=== PATIENT | male | born 1960 | race Caucasian/White ===

== ENCOUNTER 2023-07-29 16:12 | Emergency (ER) | payer BC, SELFPAY ==
[2023-07-29 16:14] VITALS: BP 164/99
[2023-07-29 16:27] VITALS: BMI 33.5
[2023-07-29 16:47] VITALS: BP 143/82
[2023-07-29 17:00] VITALS: BP 118/80
[2023-07-29] MEDS: LOW STRENGTH ASPIRIN 324 MG PO (17:00)
[2023-07-29] MEDS: NITROSTAT (SUBLINGUAL) 0.400000000000000022 MG SL (17:01)
--- NOTE | 2023-07-29 17:04 | ED.GENMED ---
History of Present Illness
General
Chief Complaint: Chest Pain
Source: patient
Exam Limitations: none
Time Seen by Provider: 07/29/23 16:33
Nursing documentation reviewed up to this point in time: agreed with
Travel History
Have you had any contact with someone who has COVID-19?: No
Do you have any symptoms of coronavirus? Fever > 100 degrees, chills, cough, shortness of breath, sore throat, loss of taste or smell, muscle aches, or headache?: No
History of Present Illness
History of Present Illness:
Patient with history of CLL, currently under treatment at [facility], presents to ED secondary to exertional chest over the past 2 weeks. Chest pain described as pressure, with radiation to his left shoulder, brought on
with minimal exertion, relieved at rest. Denies shortness of breath. Denies diaphoresis. Denies nausea or vomiting. Denies trauma. Denies back pain. Denies leg pain or swelling. Denies recent travel or surgery. Denies recent injury. Denies
recent change in level activities. Of note, patient states that he has had similar chest pain in the past, but has never been this severe or with minimal exertion. Patient currently does not see party plan sales consultant.
Past History
Past History
ED Past Medical History: Cancer (Chronic myelogenous leukemia, status post bone marrow transplant 1995 ), GERD, HTN, Hypercholesterolemia, NIDDM and Other (Chronic chest wall pain )
ED Past Surgical History: Cardiac (Cardiac catheterization November 2012, normal coronary arteries) and Other (Bone marrow transplant 1995 )
Social History
Tobacco: Non-smoker
Alcohol: Occasional
Drug: None
Personal:
Living: with family
Employment: Employed
Family History
Family History: Negative Early CAD, CAD or Sudden
Review of Systems
Review of Systems
Allergies reviewed?: Yes
All Other Systems: ROS reviewed and negative except as documented in HPI and ROS
Constitutional: Reports no symptoms
EENT: Reports no symptoms
Respiratory: Reports no symptoms
Cardiac: Reports chest pain
ABD/GI: Reports no symptoms
: Reports no symptoms
Musculoskeletal: Reports no symptoms
Skin: Reports no symptoms
Neurological: Reports no symptoms
Phy Exam
Physical Exam
Physical Exam:
Physical Exam
General: mild distress, not acutely ill. afebrile
Head: nc/at. eomi
Neck: supple. no meningeal signs.
Heart: s1/s2 regular rate and rhythm, systolic ejection murmur. equal radial pulses.
Lungs: no acute respiratory distress. clear bilaterally. mild left anterior chest wall tenderness to palpation.
Abdomen: normal bowel sounds. not tender.
Neuro: alert and oriented. no focal neurological deficits
Skin: no rash
Psychiatric: well kept. interactive and cooperative
Extremities: no edema. no calf tenderness.
Scores
Heart Score for Chest Pain Patients
STEMI patient?: No
History: Slightly or Non-Suspicious
ECG: Normal
Age: >45 - <65 years
Risk Factors: 1 or 2 Risk Factors
Troponin: </= Normal Limit
Heart Score for Chest Pain Patients: 2
Heart Score Risk: 2.5% MACE over next 6 weeks
Course
Orders/Labs/Results
Orders:
Orders
07/29/23 16:17
Electrocardiogram (*1) Urgent
Reason for Study: Chest Pain
EKG- Treatment ONCE
07/29/23 16:46
Aspirin Chewable [Low Strength Aspirin] 324 mg PO NOW STA
Nitroglycerin Sublingual [Nitrostat (Sublingual)] 0.4 mg SL NOW STA
CR Chest Portable - 1 View Urgent
Comment:
Reason For Exam: chest pain
Reason Study Needs to be Portable: Patient Unstable
07/29/23 16:56
Complete Blood Count/No Diff Urgent
Comprehensive Metabolic Panel Urgent
Magnesium Urgent
Troponin I Urgent
07/29/23 19:07
EKG- Treatment ONCE
07/29/23 19:59
Troponin I Urgent
07/29/23 20:00
Electrocardiogram (*1) Urgent
Reason for Study: Chest Pain
07/29/23 21:20
Dexamethasone Pf [Decadron] 10 mg PO NOW STA
Abnormal Lab Results
07/29/23
16:56
WBC 12.0 H 10^3/uL
(4.8-10.8)
RBC 4.18 L 10^6/uL
(4.70-6.10)
MCV 95.0 H fL
(80.0-94.0)
MCH 32.5 H pg
(27.0-31.0)
Plt Count 404 H 10^3/uL
(130-400)
Chloride 110 H mmol/L
(98-107)
Glucose 123 H mg/dl
(70-99)
07/29/23 16:56
07/29/23 16:56
Vital Signs
Initial and Last Documented VS:
Initial Vital Signs
Temp Pulse Resp BP Pulse Ox
98 F 106 18 164/99 98
07/29/23 16:14 07/29/23 16:14 07/29/23 16:14 07/29/23 16:14 07/29/23 16:14
Last Documented Vital Signs
Temp Pulse Resp BP Pulse Ox
98 F 78 15 138/86 96
07/29/23 16:14 07/29/23 21:15 07/29/23 21:15 07/29/23 21:00 07/29/23 17:52
MDM/Problems Addressed
MDM/Problems Addressed:
Pt remains comfortable during observation.
Repeat EKG: NSR @ 72 BPM, without any acute changes.
Repeat troponin normal. History and exam inconsistent with acute coronary syndrome, but likely secondary to intermittent, chronic inflammatory response, i.e. costochondritis. As such, patient will be discharged home in stable condition, to the
care of his spouse. However, in light of patient's change in frequency and intensity of pain, will advise cardiology outpatient consultation. Advised return to ED with recurrent or worsening symptoms. Patient expresses understanding at time of
discharge.
*EKG
Interpreted by ED Provider?: Yes
Heart Rate: 99
Rate: normal
Rhythm: sinus
Climax: normal axis
Interval: normal interval
QRS Pattern: right bundle branch block
*Critical Care Note
Total Time (30-74mins, 75-104mins- exclusive of procedures): Not Applicable
ED Attending Note
-
Portions of this chart may have been created with voice recognition software.� Occasional wrong word or��sound alike� substitutions may have occurred due to the inherent limitations of voice recognition software.
Discharge Plan
Departure
Patient Disposition: Home (Routine Discharge)
Date of Disposition: 07/29/23
Time of Disposition: 21:21
Patient with high blood pressure during this ER visit?: Yes
Condition: Fair
Discharge Problem:
Chest pain
Instructions: Chest Pain DCA Follow Up
Prescriptions:
No Action
esomeprazole magnesium [Nexium] 40 MG capsule,delayed release(DR/EC)
40 mg PO DAILY
atorvastatin 10 MG tablet
10 mg PO DAILY
metformin 500 MG tablet
500 mg PO DAILY
Tasigna 200 MG capsule
150 mg PO DAILY
prednisone 20 mg tablet
20 mg PO DAILY 6 Days Qty: 6 0RF
doxycycline hyclate 100 mg tablet
100 mg PO BID 5 Days Qty: 10 0RF
diclofenac sodium 75 mg tablet,delayed release (DR/EC)
75 mg PO BID Qty: 30 0RF
oxycodone 5 mg tablet
5 mg PO TID PRN (Reason: pain) Qty: 8 0RF
prednisone 20 mg tablet
20 mg PO BID Qty: 10 0RF
gabapentin 300 mg capsule
300 mg PO BID Qty: 20 0RF
Referrals:
Rico Lopez MD [Family Provider] -
Andrew Hoover MD [Active] -
Activity Restrictions/Additional Instructions:
As discussed, please follow-up with your primary care physician and/or referred party plan sales consultant for further evaluation and treatment. Please return to ED immediately with worsening symptoms.
Interventions
Interventions:
*Risk Screen - Suicide Last Done: 07/29/23 16:14
*General Assessment Last Done: 07/29/23 16:14
*Neglect/Abuse Screening Last Done: 07/29/23 16:14
ED- Fall Risk Assessment Last Done: 07/29/23 17:52
*ED COVID-19 Vaccine History Last Done: 07/29/23 17:30
*Nursing Disposition Last Done: 07/29/23 21:31
ED- Cardiac Assessment Last Done: 07/29/23 17:31
Discharge Date and Time
Discharge Date/Time: 07/29/23 21:33
Print Language: BANGLADESHI
[2023-07-29 17:07] LABS: Hematocrit 39.7 % (39.0-52.0); Hemoglobin 13.6 g/dL (13.0-18.0); Mean Corp Hgb Conc. 34.3 g/dL (33.0-37.0); Mean Corpuscular Hgb 32.5 pg (27.0-31.0); Mean Platelet Volume 9.3 fL (7.4-10.4); Platelet Count 404 10^3/uL (130-400); Red Blood Cell Count 4.18 10^6/uL (4.70-6.10); Red Cell Dist. Width 13.9 % (11.5-14.5)
[2023-07-29 17:21] LABS: ALT (SGPT) 30 U/L (0-50); AST (SGOT) 34 U/L (17-59); Albumin 4.1 g/dl (3.5-5.0); Alkaline Phosphatase 97 U/L (38-126); Blood Urea Nitrogen 19 mg/dl (9-20); Calcium 9.7 mg/dl (8.4-10.2); Carbon Dioxide 23 mmol/L (22-30); Chloride 110 mmol/L (98-107); Estimated Creatinine Clearance 80 ml/min; Glucose 123 mg/dl (70-99); Magnesium 1.8 mg/dl (1.6-2.3); Potassium 4.2 mmol/L (3.5-5.1); Sodium 141 mmol/L (135-145); Total Bilirubin 0.5 mg/dl (0.2-1.3); Total Protein 6.8 g/dl (6.3-8.2); eGFR > 60.00
[2023-07-29 17:28] LABS: Troponin I < 0.012 ng/ml
[2023-07-29 19:00] VITALS: BP 137/87
[2023-07-29 20:00] VITALS: BP 135/84
[2023-07-29 20:29] LABS: Troponin I < 0.012 ng/ml
[2023-07-29 21:00] VITALS: BP 138/86
[2023-07-29] MEDS: DECADRON 10 MG PO (21:23)
== END 2023-07-29 21:33 | disposition home or self-care (01) ==
LOC: EMR 16:12
PROVIDERS: EMERGENCY PHYSICIAN Emergency Medicine; FAMILY PHYSICIAN Family Medicine
DX: R07.89 Other chest pain (principal); C91.10 Chronic lymphocytic leukemia of B-cell type not having achieved remission; K21.9 Gastro-esophageal reflux disease without esophagitis; I10 Essential (primary) hypertension; E78.00 Pure hypercholesterolemia, unspecified; E11.9 Type 2 diabetes mellitus without complications; Z94.81 Bone marrow transplant status
CPT/HCPCS: 99283; 71045; 80053; 83735; 84484; 85027; 93005

== ENCOUNTER → 2023-08-12 08:04 | Outpatient (REF) | payer BC, SELFPAY | LOC: MRI 08:04 | PROVIDERS: ATTENDING PHYSICIAN Nurse Practitioner Primary Care; FAMILY PHYSICIAN Family Medicine | DX: R29.818 Other symptoms and signs involving the nervous system (principal) | CPT/HCPCS: 70553; A9575 ==

== ENCOUNTER 2023-08-14 07:09 | Day surgery (SDC) | payer BC, SELFPAY ==
[2023-08-14] VITALS (9 sets, daily range): BP systolic 119–148; BP diastolic 79–104; BMI 32.2
[2023-08-14] MEDS: NSS 1000 IV ×2 (08:06→10:00)
[2023-08-14] MEDS: LOW STRENGTH ASPIRIN 81 MG PO (08:07)
[2023-08-14 08:10] LABS: Glucose - Point of Care 95 mg/dl (70-99)
[2023-08-14 08:58] LABS: Hematocrit 43.2 % (39.0-52.0); Hemoglobin 14.7 g/dL (13.0-18.0)
[2023-08-14 09:18] LABS: Blood Urea Nitrogen 15 mg/dl (9-20); Calcium 9.5 mg/dl (8.4-10.2); Carbon Dioxide 24 mmol/L (22-30); Chloride 107 mmol/L (98-107); Estimated Creatinine Clearance 88 ml/min; Glucose 97 mg/dl (70-99); Potassium 4.4 mmol/L (3.5-5.1); Sodium 141 mmol/L (135-145); eGFR > 60.00
[2023-08-14] MEDS: NORVASC 5 MG PO (12:34)
[2023-08-14] MEDS: TYLENOL 650 MG PO (12:34)
--- NOTE | 2023-08-14 13:06 | ITS.CL.CATH ---
Senior Power Scheduler - Catheterization
Cardiac Catheterization
Procedure Report:
LEFT HEART CATHETERIZATION
Date of Procedure: August 14, 2023
Referring: Luisito Lowery DO
PROCEDURES:
1. Left heart catheterization, coronary angiogram.
2. Ultrasound-guided access
INDICATION: Mr. Izaguirre is a 62-year-old gentleman with past medical history of hypertension, hyperlipidemia, type 2 diabetes mellitus, CML with ongoing chemotherapy, morbid obesity on Mounjaro, GERD who reports 1 to 2-month history of progressive
exertional angina with substernal chest pressure radiating to his right shoulder associated with shortness of breath who is now referred for a left heart catheterization to rule out obstructive CAD. No discomfort at rest. He was recently started
on daily baby aspirin and Toprol-XL 25 mg daily
ACCESS: Right radial artery, 6 Yoruba sheath, under ultrasound guidance
HEMODYNAMICS : (mmHg)
AO (s/d) : 107/68
LV (s/d) : 116/2
LVEDP : 12
CORONARY FINDINGS
DOMINANCE: Right
LEFT MAIN: The left main artery is a large-caliber vessel which gives rise to the left anterior descending artery and the left circumflex artery. There is minimal luminal irregularities
LEFT ANTERIOR DESCENDING: The left anterior descending artery is a large-caliber vessel which gives rise to 1 medium to large caliber branching diagonal branch as it courses through the anterior interventricular groove and wraps around the apex.
There is a tubular ostial to proximal 80 to 85% LAD stenosis. Mid LAD has 2 serial eccentric 60-70% stenosis. D1 has an ostial eccentric 70 to 80% stenosis.
CIRCUMFLEX: The left circumflex artery is a medium to large caliber vessel which gives rise to 1 small caliber high rising OM 1 and a second large caliber obtuse marginal branch. In the mid left circumflex going into the proximal OM 1 there is a
smooth 50 to 60% tubular stenosis.
RIGHT CORONARY ARTERY: The right coronary artery is a large-caliber, dominant vessel which is rise to the right posterior descending artery and the right posterolateral system. There is a smooth tubular 30 to 40% stenosis in the mid portion
SEDATION: 34 minutes of procedural sedation was utilized. An independent medical assistant dermatology was present to assist with and help manage the patient's level of consciousness and physiologic status.
RADIATION SUMMARY: Fluoro Time (min): 3.9, Dose (mGy): 371.6, DAP (Gy.cm2) : 25.4
Closure Device: Vascular band over right radial artery, 11 cc of air
CONCLUSIONS
1. Significant obstructive coronary artery disease involving the ostial to proximal LAD, ostial D1 and mid LAD.
2. Moderate CAD in the left circumflex artery and the right coronary artery.
3. Normal LVEDP
RECOMMENDATIONS
1. Refer to CT surgery for consideration for coronary bypass grafting in setting of ostial to proximal LAD stenosis with known history of type 2 diabetes to LAD, D1, OM, +/- distal RCA/RPDA
2. Full echocardiogram to assess biventricular function and rule out any significant valvular abnormalities.
3. Aggressive management of cardiovascular risk factors.
4. Optimization of goal-directed medical therapy for stable angina.
5. Wean radial band per protocol.
Copy to: Luisito Lowery DO
Libra Cespedes MD, FACC, [facility]
== END 2023-08-14 13:20 | disposition home or self-care (01) ==
LOC: CATH 07:09
PROVIDERS: ATTENDING PHYSICIAN Internal Medicine Interventional Cardiology; FAMILY PHYSICIAN Family Medicine
DX: I25.110 Atherosclerotic heart disease of native coronary artery with unstable angina pectoris (principal); E66.01 Morbid (severe) obesity due to excess calories; K21.9 Gastro-esophageal reflux disease without esophagitis; E11.9 Type 2 diabetes mellitus without complications; E78.5 Hyperlipidemia, unspecified; I10 Essential (primary) hypertension; Z79.82 Long term (current) use of aspirin; I45.10 Unspecified right bundle-branch block; C92.10 Chronic myeloid leukemia, BCR/ABL-positive, not having achieved remission
CPT/HCPCS: 80048; 82962; 85014; 85018; 93458; 99152; 99153; C1894; Q9967

== ENCOUNTER → 2023-08-19 13:34 | Outpatient (REF) | payer BC, SELFPAY | LOC: HWRCS 13:34 | PROVIDERS: ATTENDING PHYSICIAN Nuclear Medicine Nuclear Cardiology; FAMILY PHYSICIAN Family Medicine | DX: R07.89 Other chest pain (principal) | CPT/HCPCS: 93306 ==

== ENCOUNTER 2023-08-29 05:12 | Inpatient (IN) | payer BC, SELFPAY ==
[2023-08-21 08:37] VITALS: BMI 33.5
[2023-08-21 09:39] LABS: % Basophils 0.6 % (0-2); % Eosinophils 2.9 % (0-6); % Immature Granulocytes 0.3 % (0-0.5); % Lymphocytes 31.4 % (20.5-51.1); % Monocytes 15.7 % (1.7-9.3); % Neutrophils 49.1 % (42.2-75.2); Absolute Basophils 0.1 10^3/uL (0-0.2); Absolute Eosinophils 0.3 10^3/uL (0-0.7); Absolute Lymphocytes 2.9 10^3/uL (1.2-3.4); Absolute Monocytes 1.4 10^3/uL (0.1-0.6); Absolute Neutrophils 4.5 10^3/uL (1.4-6.5); Hemoglobin 14.4 g/dL (13.0-18.0); Mean Corp Hgb Conc. 33.5 g/dL (33.0-37.0); Mean Corpuscular Hgb 32.7 pg (27.0-31.0); Mean Corpuscular Volume 97.5 fL (80.0-94.0); Mean Platelet Volume 9.5 fL (7.4-10.4); Nucleated Red Blood Cells % 0 % (-); Platelet Count 468 10^3/uL (130-400); Red Blood Cell Count 4.41 10^6/uL (4.70-6.10); Red Cell Dist. Width 13.7 % (11.5-14.5); White Blood Cell Count 9.1 10^3/uL (4.8-10.8)
[2023-08-21 09:40] LABS: INR 1.08
[2023-08-21 09:41] LABS: APTT 30.7 Sec (23.4-35.0)
[2023-08-21 09:47] LABS: Urine Albumin Negative (Neg - Trace); Urine Bilirubin Negative (Negative); Urine Character Clear (Clear); Urine Color Straw; Urine Glucose Negative (Negative); Urine Ketone Negative (Negative); Urine Leukocyte Negative (Negative); Urine Nitrite Negative (Negative); Urine Occult Blood Negative (Negative); Urine Urobilinogen Negative (Neg - 1+); Urine pH 6.5 (5.0-9.0)
[2023-08-21 09:48] LABS: ALT (SGPT) 29 U/L (0-50); AST (SGOT) 26 U/L (17-59); Albumin 4.4 g/dl (3.5-5.0); Alkaline Phosphatase 136 U/L (38-126); Blood Urea Nitrogen 15 mg/dl (9-20); Calcium 9.6 mg/dl (8.4-10.2); Carbon Dioxide 27 mmol/L (22-30); Chloride 106 mmol/L (98-107); Direct Bilirubin 0.2 mg/dl (0.0-0.4); Estimated Creatinine Clearance 88 ml/min; Glucose 103 mg/dl (70-99); Potassium 4.4 mmol/L (3.5-5.1); Sodium 141 mmol/L (135-145); Total Bilirubin 0.5 mg/dl (0.2-1.3); Total Protein 7.1 g/dl (6.3-8.2); eGFR > 60.00
--- NOTE | 2023-08-21 10:13 | CM ---
Chart reviewed. 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
Reviewed preoperative and postoperative instructions and restrictions. Gave patient 2 soaps along with showering instructions. Patient is agreeable to a home visit by CT Transitional RN. CM to follow
[2023-08-21 11:53] LABS: Glycohemoglobin (HgbA1c) 5.8 % (4.0-5.6)
[2023-08-29 05:01] VITALS: BP 139/87
[2023-08-29 05:03] VITALS: BP 127/84
[2023-08-29] MEDS: BACTROBAN 2% OINTMENT 1 APPLIC NASAL ×2 (05:37→19:48)
[2023-08-29] MEDS: MAGNESIUM OXIDE 500 MG PO (05:38)
[2023-08-29] MEDS: LOPRESSOR 25 MG PO (05:38)
[2023-08-29] MEDS: PROTONIX 40 MG PO (05:38)
[2023-08-29 05:49] VITALS: BMI 33.6
--- NOTE | 2023-08-29 05:56 | PTCARENOTE ---
pt admitted into CVICU 2260. pt confirmed 2 showers at home. pt clipped and prepped for CVOR. pre-op education provided. pre-op meds given. all questions answered.
[2023-08-29 08:08] LABS: ACT+ - POC 129 Seconds (82-134)
[2023-08-29 08:10] LABS: B.E. - POC -1.2 mmol/L; Glucose - POC 110 mg/dl (65-99); HCO3 - POC 24 mmol/L (21-29); Hematocrit - POC 40 % PCV (42-52); Hemodilution- POC No; Hemoglobin Calculated - POC 13.6; Ionized Calcium - POC 1.22 mmol/L (1.12-1.27); O2 Saturation %Calculated-POC 99.9 5 (92-96); PCO2 - POC 42 mmHg (35-45); PO2 - POC 325 mmHg (80-100); Sodium - POC 144 mmol/L (135-145); pH - POC 7.37 (7.35-7.45)
[2023-08-29 08:11] LABS: Urine Albumin Negative (Neg - Trace); Urine Bilirubin Negative (Negative); Urine Character Clear (Clear); Urine Color Straw; Urine Glucose Negative (Negative); Urine Ketone Negative (Negative); Urine Leukocyte Negative (Negative); Urine Nitrite Negative (Negative); Urine Occult Blood Negative (Negative); Urine Urobilinogen Negative (Neg - 1+); Urine pH 6.5 (5.0-9.0)
--- NOTE | 2023-08-29 08:53 | CM ---
Patient in OR today for planned CABG.
Reviewed initial assessment. Pt. resides w/ spouse in a private, 2 story home. Functionally, patient is indep. at baseline w/ ADLs, mobility without the use of any assisted device.
Goal for home w/ CT Transitional Care RN.
CM to follow.
[2023-08-29 10:18] LABS: ACT+ - POC 868 Seconds (82-134)
[2023-08-29 10:40] LABS: Glucose - POC 199 mg/dl (65-99); HCO3 - POC 26 mmol/L (21-29); Hematocrit - POC 28 % PCV (42-52); Hemodilution- POC Yes; Hemoglobin Calculated - POC 9.6; Ionized Calcium - POC 1.04 mmol/L (1.12-1.27); O2 Saturation %Calculated-POC 99.9 5 (92-96); PCO2 - POC 44 mmHg (35-45); PO2 - POC 295 mmHg (80-100); Potassium - POC 5.2 mmol/L (3.6-5.0); Sodium - POC 141 mmol/L (135-145); pH - POC 7.39 (7.35-7.45)
[2023-08-29 10:46] LABS: ACT+ - POC 699 Seconds (82-134)
[2023-08-29 11:00] LABS: Glucose - POC 210 mg/dl (65-99); HCO3 - POC 25 mmol/L (21-29); Hematocrit - POC 31 % PCV (42-52); Hemodilution- POC Yes; Hemoglobin Calculated - POC 10.4; O2 Saturation %Calculated-POC 99.8 5 (92-96); PCO2 - POC 41 mmHg (35-45); PO2 - POC 244 mmHg (80-100); Potassium - POC 4.6 mmol/L (3.6-5.0); Sodium - POC 143 mmol/L (135-145); pH - POC 7.39 (7.35-7.45)
[2023-08-29 11:04] LABS: ACT+ - POC 612 Seconds (82-134)
[2023-08-29 11:27] LABS: B.E. - POC -1.9 mmol/L; Glucose - POC 184 mg/dl (65-99); HCO3 - POC 23 mmol/L (21-29); Hematocrit - POC 31 % PCV (42-52); Hemodilution- POC Yes; Hemoglobin Calculated - POC 10.6; Ionized Calcium - POC 1.12 mmol/L (1.12-1.27); O2 Saturation %Calculated-POC 99.9 5 (92-96); PCO2 - POC 39 mmHg (35-45); PO2 - POC 309 mmHg (80-100); Potassium - POC 4.5 mmol/L (3.6-5.0); Sodium - POC 145 mmol/L (135-145); pH - POC 7.38 (7.35-7.45)
[2023-08-29 11:30] LABS: ACT+ - POC 552 Seconds (82-134)
[2023-08-29 11:48] LABS: ACT+ - POC 564 Seconds (82-134)
[2023-08-29 11:53] LABS: B.E. - POC -0.9 mmol/L; Glucose - POC 174 mg/dl (65-99); HCO3 - POC 25 mmol/L (21-29); Hematocrit - POC 33 % PCV (42-52); Hemodilution- POC Yes; Hemoglobin Calculated - POC 11.1; Ionized Calcium - POC 1.13 mmol/L (1.12-1.27); O2 Saturation %Calculated-POC 99.9 5 (92-96); PCO2 - POC 48 mmHg (35-45); PO2 - POC 381 mmHg (80-100); Sodium - POC 145 mmol/L (135-145); pH - POC 7.33 (7.35-7.45)
[2023-08-29 12:18] LABS: ACT+ - POC 112 Seconds (82-134)
[2023-08-29 12:28] LABS: B.E. - POC -6.3 mmol/L; Glucose - POC 137 mg/dl (65-99); HCO3 - POC 19 mmol/L (21-29); Hematocrit - POC 29 % PCV (42-52); Hemodilution- POC Yes; Ionized Calcium - POC 1.29 mmol/L (1.12-1.27); O2 Saturation %Calculated-POC 95.4 5 (92-96); PCO2 - POC 38 mmHg (35-45); PO2 - POC 84 mmHg (80-100); Potassium - POC 3.1 mmol/L (3.6-5.0); Sodium - POC 145 mmol/L (135-145); pH - POC 7.32 (7.35-7.45)
[2023-08-29 12:38] LABS: Glucose - POC 131 mg/dl (65-99); HCO3 - POC 20 mmol/L (21-29); Hematocrit - POC 30 % PCV (42-52); Hemodilution- POC Yes; Hemoglobin Calculated - POC 10.1; Ionized Calcium - POC 1.27 mmol/L (1.12-1.27); O2 Saturation %Calculated-POC 97.9 5 (92-96); PCO2 - POC 38 mmHg (35-45); PO2 - POC 108 mmHg (80-100); Potassium - POC 3.2 mmol/L (3.6-5.0); Sodium - POC 146 mmol/L (135-145); pH - POC 7.34 (7.35-7.45)
--- NOTE | 2023-08-29 12:49 | W.CVOR.SURPR ---
CVOR Surgeon Immed Pre Op
-
I have examined this patient prior to performance of the scheduled procedure.
The patient's condition is unchanged from the time of the dictated/written History and
Physical and the patient is able to undergo the scheduled procedure.
--- NOTE | 2023-08-29 12:49 | W.IMMPOSTOP ---
Addendum entered and electronically signed by Gerardo Oliver MD 08/29/23 13:08:
[id number]
Original Note:
Surgical Immed Post Op Note
-
CARDIAC SURGERY OPERATIVE NOTE:
Preoperative Dx:
MVCAD
Postoperative Dx:
Same
Procedures:
1) Median sternotomy
2) Takedown of GRACY (narrow pedicle)
3) Endoscopic harvest/prep of LLE GSV
4) CABG x 3 (GRACY to LAD, GSV to D1, GSV to OM)
Surgeon:
Gerardo Oliver M.D.
Licensed Clinician:
May Munguia-CRoxane; endoscopic harvest/prep of LLE GSV, first cook throughout, closure
Halley ConteA.-CRoxane; closure of LLE incisions, chest closure [id number]
Anesthesia:
Scotty Qureshi M.D. and Marlen Sutherland, Raymond.R.N.A.
Perfusion:
Vance HenryPRoxane; XC: 66min, CPB: 98min
Findings:
GRACY was healthy appearing vessel w/ ELD 1.65mm, very brisk blood flow
GSV was healthy appearing conduit w/ ELD 3.5-4.0mm, normal villalpando
LAD visible on epicardial surface, scattered calcifications throughout. Anastomosis at junction between mid/distal vessel. ELD 1.65mm. Brisk blood flow across anastomosis
D1 visible on epicardial surface, scant calcifications. ELD 2.5mm. Normal villalpando. Brisk blood flow across anastomosis
OM visible on epicardial surface, scant calcifications. ELD 3.5-4.0mm. Normal villalpando. Brisk blood flow across anastomosis
Post-GABI: Hyperdynamic cardiac function w/ LVEF 65-70%, no RWMA, no valvular heart disease
Implants:
CT x 4 (B/L pleural, inferior mediastinal, superior mediastinal)
Sternal wires x 7
Sternal 'X' plate x 1 w/ 4 - 16mm and 4 - 14mm screws
Sternal 'Square' place w/ 4 - 12mm screws
Complications:
None
Transfusions:
None
Condition:
82 sinus w/ isoelectric STs. 103/65. CVP 17. 99%
GTTS: levophed 10, precedex 0.5, insulin 0.5
Stable/guarded to CVICU
[2023-08-29 13:03] LABS: B.E. - POC -0.7 mmol/L; Glucose - POC 123 mg/dl (65-99); HCO3 - POC 25 mmol/L (21-29); Hematocrit - POC 30 % PCV (42-52); Hemodilution- POC Yes; Hemoglobin Calculated - POC 10.3; Ionized Calcium - POC 1.21 mmol/L (1.12-1.27); O2 Saturation %Calculated-POC 99.3 5 (92-96); PCO2 - POC 42 mmHg (35-45); PO2 - POC 152 mmHg (80-100); Potassium - POC 3.8 mmol/L (3.6-5.0); Sodium - POC 144 mmol/L (135-145); pH - POC 7.37 (7.35-7.45)
[2023-08-29 13:29] LABS: Glucose - Point of Care 135 mg/dl (70-99)
[2023-08-29] MEDS: DILAUDID 0.5 MG IV ×2 (13:35→17:08)
[2023-08-29 13:37] LABS: B.E. -1.2 mmol/L; HCO3 24.3 mmol/L (21-28); Ionized Calcium 1.25 mMOL/L (1.15-1.33); O2 Saturation % 99.4 % (94-98); PCO2 43 mmHg (35-48); PO2 176 mmHg (83-108); Potassium 4.3 mMOL/L (3.5-5.1); Sodium 141 mMOL/L (136-145); pH 7.36 (7.35-7.45)
[2023-08-29 13:38] LABS: Hematocrit 30.4 % (39.0-52.0); Hemoglobin 10.5 g/dL (13.0-18.0); Platelet Count 281 10^3/uL (130-400)
[2023-08-29 13:48] LABS: INR 1.57; PT 18.6 Sec (11.4-14.6)
[2023-08-29 13:49] LABS: APTT 26.2 Sec (23.4-35.0); Blood Urea Nitrogen 19 mg/dl (9-20); Estimated Creatinine Clearance 88 ml/min; Glucose 127 mg/dl (70-99); Magnesium 2.6 mg/dl (1.6-2.3)
[2023-08-29] MEDS: NSS 500 IV (14:01)
[2023-08-29] MEDS: NOVOLOG FLEXPEN SC ×2 (14:01→17:15)
[2023-08-29] MEDS: ANCEF 10 IV ×2 (14:01)
[2023-08-29] MEDS: NEURONTIN PO ×2 (14:02→16:23)
[2023-08-29] MEDS: LIPITOR PO (14:02)
[2023-08-29 14:16] LABS: Glucose - Point of Care 142 mg/dl (70-99)
--- NOTE | 2023-08-29 14:30 | CON.INTV ---
Consultation
Consultation Request
Date/Time Consultation Requested: 08/29/2023
Date/Time Consultation Performed: 08/29/2023
Requesting Provider: Dr. Oliver
Performing Provider: Dr. Jack Perez
Reason for Consultation: Postoperative ICU care-status post CABG
Medical History
-
History of Present Illness:
62-year-old man with history of CML, diagnosed recently with three-vessel coronary artery disease. Electively admitted for coronary artery bypass. Surgery underwent without complications on 08/29/2023.
Patient is currently in the critical care unit. Unable to provide history. Records reviewed.
Currently on mechanical ventilation. Appears comfortable.
Chest tube in place without excessive drainage
Past Medical History
Past Medical History: Other (See assessment and plan section)
Social History
Tobacco: Non-smoker
Alcohol: None
Drug: None
Personal:
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
Family History
Family History: Reviewed & Not Pertinent
Allergies / Home Medications
Allergies
Allergy/AdvReac Type Severity Reaction Status Date / Time
No Known Allergies Allergy Verified 08/20/23 11:02
Home Medications
�Medication �Instructions �Recorded �Confirmed �Last Taken �Type
esomeprazole magnesium 40 mg 40 mg PO DAILY 12/01/12 08/29/23 08/28/23 08:00 History
capsule,delayed release (Nexium)
metformin 500 mg tablet 500 mg PO BID 03/29/20 08/29/23 08/28/23 08:00 History
amlodipine 5 mg tablet 5 mg PO DAILY #90 tabs 08/14/23 08/29/23 08/28/23 20:00 Rx
aspirin 81 mg capsule 81 mg PO HS 08/14/23 08/29/23 08/28/23 08:00 History
ibuprofen 400 mg tablet 400 mg PO Q6H PRN pain 08/14/23 08/29/23 08/27/23 History
losartan 50 mg tablet 50 mg PO DAILY 0508/29/23 08/26/23 History
metoprolol succinate 25 mg 25 mg PO QPM 08/14/23 08/29/23 08/28/23 20:00 History
tablet,extended release 24 hr
(Toprol XL)
nilotinib 150 mg capsule (Tasigna) 150 mg PO HS 08/14/23 08/29/23 08/22/23 History
nitroglycerin 0.4 mg sublingual 0.4 mg sublingual [id number] PRN 08/14/23 08/29/23 08/27/23 Rx
tablet chest pain #25 tabs
tirzepatide 5 mg/0.5 mL 5 mg SC QWEEK 08/14/23 08/29/23 08/08/23 History
subcutaneous pen injector
(Mounjaro)
atorvastatin 80 mg tablet 80 mg PO DAILY 08/20/23 08/29/23 08/28/23 08:00 History
Review of Systems
-
Unable to Obtain full review of systems at this time due to: Patient Intubation
Vitals / Labs / Diagnostic Testing
Vital Signs
Temp Pulse Resp BP Pulse Ox
98.1 F 80 16 127/84 100
08/29/23 14:05 08/29/23 14:10 08/29/23 14:10 08/29/23 05:03 08/29/23 14:10
Lab Data
08/29/23 13:22
Laboratory Results
08/29/23 08/29/23
13:22 13:28
PT 18.6 H
INR 1.57
APTT 26.2
pH 7.36
pCO2 43
pO2 176 H
HCO3 24.3
O2 Delivery Level
Diagnostic Testing:
Physical Exam
-
HEENT: Normocephalic and Other (ET tube in place without secretions)
Cardiovascular: S1/S2
Respiratory: Clear and Non-Labored Respirations
GI: Soft and Non Distended
Neurology: Awake and Oriented
Skin: Warm
General: Respiratory Distress (n)
Assessment
-
Status post coronary artery bypass 08/29/2023
Postoperative mechanical ventilation
Postoperative anemia
Conditions present prior admission:
History of CML-status post bone marrow transplant 1996
Assessment and plan:
He is doing well postop-currently on mechanical ventilation and appears comfortable.
ABG reviewed: Adequate oxygenation on ventilation.
Continue SIMV mode with no change
Spontaneous breathing trial per protocol once sedation wears off.
Anemia noted-no evidence of acute bleeding
Follow H&H serially
Hemodynamics -acceptable on low-dose Levophed.
Wean off vasopressors as able
Renal function is normal
Allen urinary output
Chest tube with no excessive drainage-no air leak.
Chest x-ray reviewed: With no pneumothorax or fluid collections.
Remain nothing by mouth
Head of the bed elevation
Glycemic control per protocol
DVT prophylaxis when safe from the surgical perspective.
Critical care statement: A total of 32 minutes of critical care time was provided for this patient today. This includes management of unstable vital signs, evaluation of the patient at bedside, reviewing the patient's pertinent medical records
including ventilator settings, arterial blood gases, radiographs, microbiology, laboratory evaluations and discussion with primary team, critical care nursing, and respiratory therapy.
--- NOTE | 2023-08-29 14:49 | W.PN.CARDCBS ---
Addendum entered and electronically signed by Christopher Eid MD 08/29/23 15:31:
Attending addendum: Patient seen and examined. PA note reviewed and findings confirmed by me. Briefly, 62 y/o gentleman with multivessel coronary artery disease who was admitted and underwent CABG with HELM-LAD, SVG-D, SVG-OM earlier today. He
is now seen post op and wakening for anesthesia.
ECG: Sinus rhythm with RBBB
Gen: Intubated but opens eyes and seems appropriate
HEENT: NC/AT, ET tube in place
Lungs : Clear anteriorly and laterally
CV: RRR. Soft Rub
Ext: No edema
RECOMMENDATIONS
-Wean pressors as tolerated
-Will follow
Original Note:
Today's Communication / Plan
-
Continue post op care
Impression / Plan
-
PCP: Dr. Lopez
Purchasing Agent: Dr. Lowery
Impression:
CAD
s/p CABG x 3 (GRACY-LAD, GSV-D1, GSV-OM) 08/29/2023
HTN
HLD
DM2
RBBB
h/o SAH
h/o CML w/ bone marrow transplant 1995
Echo 08/19/2023: EF 60-65%, no RWMA, no significant valvular disease
Plan:
-Patient had exertional angina for 2 months and underwent cardiac catheterization 08/14/2023 which showed multivessel CAD. Then referred for CABG.
-Underwent CABG x3 (GRACY-LAD, GSV-D1, GSV-OM) 08/29/2023 w/ Dr. Oliver.
-Seen post-op. Doing well. Waking up however remains intubated.
-On Levo @ 5
-No blood products given intra-op. Hgb stable at 10.5.
-Post op EKG stable, SR with RBBB.
-Continue aspirin and plavix
-Continue post op care
Progress Note - Purchasing Agent
Subjective
Date of Service: August 29, 2023
Remains intubated
Objective
Labs:
08/29/23 13:22
Labs
Hgb 10.5 g/dL (13.0-18.0) L 08/29/23 13:22
Hct 30.4 % (39.0-52.0) L 08/29/23 13:22
Plt Count 281 10^3/uL (130-400) 08/29/23 13:22
PT 18.6 Sec (11.4-14.6) H 08/29/23 13:22
INR 1.57 08/29/23 13:22
APTT 26.2 Sec (23.4-35.0) 08/29/23 13:22
Sodium 141 mmol/L (135-145) 08/21/23 08:55
Potassium 4.4 mmol/L (3.5-5.1) 08/21/23 08:55
BUN 19 mg/dl (9-20) 08/29/23 13:22
Creatinine 1.0 mg/dL (0.7-1.3) 08/29/23 13:22
Glucose 127 mg/dl (70-99) H 08/29/23 13:22
Vital Signs and I&O:
Vital Signs
Temp Pulse Resp BP Pulse Ox
98.1 F 80 16 127/84 100
08/29/23 14:05 08/29/23 14:10 08/29/23 14:10 08/29/23 05:03 08/29/23 14:38
Vital Signs
Temp Pulse Resp BP Pulse Ox
98.1 F 80 16 127/84 100
08/29/23 14:05 08/29/23 14:10 08/29/23 14:10 08/29/23 05:03 08/29/23 14:38
Intake & Output
05/29/08/28/23 08/29/23 08/30/23
06:59 06:59 06:59 06:59
Intake Total 85.3 / 85.3
Output Total 160 / 160
Balance -74.7 / -74.7
Physical Exam
Physical Exam
GEN: No distress, intubated
HEENT: supple, anicteric, mmm
LUNGS: CTA b/l, no wheezes/rales
CV: Reg, S1/S2, no murmur
EXT: No clubbing, cyanosis, or edema
SKIN: Warm, dry, no rash
[2023-08-29] MEDS: ALBUMIN 5% 250 IV (15:00)
[2023-08-29 15:09] LABS: Glucose - Point of Care 159 mg/dl (70-99)
--- NOTE | 2023-08-29 15:15 | PTCARENOTE ---
Rec'd pt from CVOR mechanically ventilated and sedated. Pt with RT cordis and slick on Levo at 10mcg/min, IV precedex at 0.5 mcg/kg/hr and IV Insulin. Pt with left radial ger, domínguez to gravity drainage, CT X 4. Labs sent. EKG done and CXR done.
Attempted CPAP but pt still sleepy and sedated. Precedex d/c'd. Pt awake, moving all extremities spontaneously and to command. See worklist for VS/I and O and assessments.
[2023-08-29] MEDS: TYLENOL PO (15:20)
--- NOTE | 2023-08-29 15:27 | W.PN.UPDATE ---
Update Note
Progress Note Update
62-year-old male electively admitted 08/28 for CABG due to exertional chest pain and lightheadedness with multivessel coronary disease
IV fluids: 1800
U.O.:� 400
Blood:� none
Wires:� none
Inotropes:� none
Pressors:� Levophed @ 10
Sedatives:� Precedex
�
NEURO: sedated on Precedex, pupils +2mm B/L
RESP: #8OT @24cm> 600/60%/14/5. Lungs clear B/L. 2 mediastinal (0cc on arrival) and R/L pleural (0cc on arrival) chest tubes to -20cm suction. Sanguineous drainage
CV: RRR +S1, S2, no S3, +rub, no murmur. Dermabond to median sternotomy. RIJ slick intact
ABD: obese, round, soft, no BS
EXT: no edema, +2/4 DP pulses B/L, no femoral bruit, LLE KRYSTAL wrap intact; left radial A-line intact
: Allen with clear yellow urine
�
A/P: POD #0 s/p CABG x 3 GRACY-LAD; SVG-D1; SVG-OM
GABI: EF�65-70%
- wean and extubate
# CAD
- will require ASA/Plavix, statin, beta-new
�
# acute surgical blood loss anemia-expected
- initial post-op Hb 10.5
- trend CBC
�
�
# T2DM (A1C 5.8)
- insulin infusion x 24h
- resume Ángela TINAJERO when off insulin
�
# CML
- resume�Tasigna in AM
# GERD
- on Nexium @ home
- PPI for GI prophylaxis while on ASA/Plavix
--- NOTE | 2023-08-29 15:56 | PTCARENOTE ---
attempted CPAP, pt still sleepy. Will atttempt at a later time.
[2023-08-29] MEDS: OFIRMEV 100 IV (16:06)
[2023-08-29 16:15] LABS: Glucose - Point of Care 170 mg/dl (70-99)
[2023-08-29] MEDS: PACERONE PO (16:24)
[2023-08-29 16:46] LABS: Hematocrit 27.9 % (39.0-52.0); Hemoglobin 9.7 g/dL (13.0-18.0); Platelet Count 273 10^3/uL (130-400)
[2023-08-29 16:51] LABS: B.E. -2.3 mmol/L; HCO3 23.2 mmol/L (21-28); O2 Saturation % 98.6 % (94-98); PCO2 42 mmHg (35-48); PO2 155 mmHg (83-108); Potassium 4.6 mMOL/L (3.5-5.1); pH 7.35 (7.35-7.45)
[2023-08-29] MEDS: TORADOL 15 MG IV (17:10)
--- NOTE | 2023-08-29 17:16 | RESPNOTE ---
1700 patient extubated to 6 liter NC without incident 97% IS done 1000 mL
[2023-08-29 17:18] LABS: Glucose - Point of Care 158 mg/dl (70-99)
--- NOTE | 2023-08-29 17:43 | PTCARENOTE ---
Pt placed on CPAP PS 5 .40% at 1615. ABG sent and patient extubated at 1700. Pt placed on 6l n/c oxygen. Pulse ox 96%.
[2023-08-29 17:57] VITALS: BP 88/60
[2023-08-29 18:12] LABS: Glucose - Point of Care 155 mg/dl (70-99)
[2023-08-29] MEDS: LOW STRENGTH ASPIRIN 81 MG PO (18:22)
[2023-08-29] MEDS: ROXICODONE 5 MG PO ×2 (18:22→22:20)
[2023-08-29] MEDS: FLEXERIL 5 MG PO (18:23)
--- NOTE | 2023-08-29 18:41 | PTCARENOTE ---
Pt bathed with CHG wipes, turned side to side, tolerated well.
[2023-08-29 18:58] VITALS: BP 91/57
[2023-08-29] MEDS: SENOKOT-S 1 TABLET PO (19:47)
[2023-08-29] MEDS: ANCEF 5 IV (19:47)
[2023-08-29 19:56] LABS: Glucose - Point of Care 156 mg/dl (70-99)
[2023-08-29] MEDS: DILAUDID 0.25 MG IV (20:00)
--- NOTE | 2023-08-29 20:00 | PTCARENOTE ---
assumed care of pt from previous RN. pt A&Ox4, in bed at time of assessment. R IJ cordis w/ SLIC. L radial a-line. all lines leveled, zeroed, flushed. levo infusing, insulin gtt per glycemic protocol. CTx4 (mediastinal x2, R & L pleural) to -20cm
wall suction, draining sanguineous drainage. no air leak noted. domínguez catheter draining clear, yellow urine. SR w/ RBBB on tele-monitor, HR 60s-70s. no temp epicardial wires. + peripheral pulses. no edema noted. POX 97% on 2 L NC. abd s/n, round,
hypoactive BS. all surgical sites stable, CDI. PIV intact. plan of care discussed w/ pt, pt in agreement. see worklist for complete nursing assessment, interventions, VS, and I&Os.
[2023-08-29] MEDS: PACERONE 200 MG PO (22:18)
[2023-08-29] MEDS: NEURONTIN 100 MG PO (22:18)
[2023-08-29] MEDS: TYLENOL 1000 MG PO (22:19)
[2023-08-29 22:27] LABS: Glucose - Point of Care 149 mg/dl (70-99)
[2023-08-29 22:32] VITALS: BP 92/53
[2023-08-29 23:00] VITALS: BP 96/57
[2023-08-29 23:26] LABS: Glucose - Point of Care 147 mg/dl (70-99)
[2023-08-30] VITALS (29 sets, daily range): BP systolic 76–110; BP diastolic 44–75; PULSE 84; O2SAT 92–93; BMI 34.8
--- NOTE | 2023-08-30 | PTCARENOTE ---
assessment remains unchanged. levo infusing. weaning as BP allows. SR w/ RBBB on tele-monitor, HR 60s-70s. POX 96-98% on [address] drainage WNL. U/O <0.5ml/kg/hr. CVPA aware. pain management.
[2023-08-30 00:25] LABS: Glucose - Point of Care 128 mg/dl (70-99)
[2023-08-30] MEDS: LEVOPHED 250 IV (00:28)
[2023-08-30] MEDS: DILAUDID 0.5 MG IV ×4 (00:28→19:38)
[2023-08-30 01:18] LABS: Glucose - Point of Care 146 mg/dl (70-99)
[2023-08-30 02:26] LABS: Glucose - Point of Care 135 mg/dl (70-99)
[2023-08-30] MEDS: ANCEF 5 IV ×2 (03:54→12:47)
--- NOTE | 2023-08-30 04:00 | PTCARENOTE ---
assessment remains unchanged. levo infusing. SR w/ RBBB on tele-monitor, HR 70s. POX 96-97% on 2 L NC. AM labs collected and sent. CT drainage WNL.
[2023-08-30 04:04] LABS: Glucose - Point of Care 123 mg/dl (70-99)
[2023-08-30] MEDS: ROXICODONE 5 MG PO ×4 (04:07→23:05)
[2023-08-30] MEDS: FLEXERIL 5 MG PO ×3 (04:08→22:07)
[2023-08-30 04:09] LABS: Hematocrit 23.7 % (39.0-52.0); Hemoglobin 8.5 g/dL (13.0-18.0); Mean Corp Hgb Conc. 35.9 g/dL (33.0-37.0); Mean Corpuscular Hgb 33.7 pg (27.0-31.0); Mean Platelet Volume 9.3 fL (7.4-10.4); Platelet Count 265 10^3/uL (130-400); Red Blood Cell Count 2.52 10^6/uL (4.70-6.10); Red Cell Dist. Width 14.1 % (11.5-14.5); White Blood Cell Count 19.3 10^3/uL (4.8-10.8)
[2023-08-30 04:10] LABS: Ionized Calcium 1.19 mMOL/L (1.15-1.33)
[2023-08-30 04:23] LABS: Blood Urea Nitrogen 24 mg/dl (9-20); Calcium 8.7 mg/dl (8.4-10.2); Carbon Dioxide 26 mmol/L (22-30); Chloride 109 mmol/L (98-107); Estimated Creatinine Clearance 80 ml/min; Glucose 116 mg/dl (70-99); Magnesium 2.3 mg/dl (1.6-2.3); Potassium 4.6 mmol/L (3.5-5.1); Sodium 140 mmol/L (135-145); eGFR > 60.00
[2023-08-30] MEDS: ALBUMIN 5% 250 IV ×2 (04:57→23:26)
--- NOTE | 2023-08-30 05:04 | W.PN.CT ---
Today's Communication / Plan
-
-pod #1
-drips: Levo 6, Insulin
-CT output: 2 meds 100/280, 2 pleur 50/180 in 12/24 hrs
-continue Levo to keep map >65
-h/h 8.5/23.7 today - follow
-follow daily ECG while on Amio and Tasigna (prolongs Qt), avoid K<4 or Mg<2
-current meds (ASA, Plavix, Amio, Lipitor, Protonix). Held Lopressor while on Levo.
-encourage IS, OOB
Assessment / Plan
-
- Mv-CAD - s/p CABG x 3 (GRACY to LAD, GSV to D1, GSV to OM); LLE EVH on 08/29/[address] Oliver, pod #1
- Post-GABI: Hyperdynamic cardiac function w/ LVEF 65-70%, no RWMA, no valvular heart disease
- HTN/HLD
- DM II (HgA1c 5.8)
- Class 1 obesity (BMI 33)
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
- Chronic thrombocytosis
- Hx subarachnoid hemorrhage - no residual deficit
- Renal stones
- Bone marrow transplant 1995
- Acute postop blood loss anemia
- Acute postop atelectasis
- Acute postop vasoplegia
Discussed patient care with: Nursing and Care Team
Subjective
Procedure
- s/p CABG x 3 (GRACY to LAD, GSV to D1, GSV to OM); E EV on 08/29/[address] Oliver
-
Date of Service: August 30, 2023
Objective Data
-
PT 18.6 Sec (11.4-14.6) H 08/29/23 13:22
INR 1.57 08/29/23 13:22
APTT 26.2 Sec (23.4-35.0) 08/29/23 13:22
Vital Signs
Vital Signs
Temp Pulse Resp BP Pulse Ox
98.8 F 73 13 96/54 98
08/30/23 00:00 08/30/23 00:30 08/30/23 00:30 08/30/23 00:00 08/30/23 00:30
CT Intake/Output/Weight
08/29/23 08/29/23 08/30/23
06:59 18:59 06:59
Intake Total 656.4 / 986.2 329.8 / 986.2
Output Total 660 / 1010 350 / 1010
Balance -3.6 / -23.8 -20.2 / -23.8
SaO2: 98
Physical Exam
-
General: Awake and AOx3
Cardiovascular: Regular rate & rhythm, No Murmurs and No Rub
Respiratory: Decreased Breath Sounds
Sternum: Stable
Incision: Clean, Dry and Intact
Extremities: No Edema (1+ DP b/l)
Data Reviewed
-
Lab Results: Results Reviewed
Medications: Active Meds Reviewed
Chest X-Ray: Report Reviewed and Image Reviewed
ECG: Report Reviewed and Image Reviewed
[2023-08-30] MEDS: TYLENOL 1000 MG PO ×3 (05:06→22:03)
[2023-08-30 06:21] LABS: Glucose - Point of Care 120 mg/dl (70-99)
[2023-08-30 07:02] LABS: Glucose - Point of Care 109 mg/dl (70-99)
--- NOTE | 2023-08-30 08:03 | W.PN.ANS.POP ---
Anesthesia Post Operative
- Anesthesia Post Op Note
Vital Signs Stable-See Nursing Note: Yes (remains on levophed gtt)
Airway Patent: Yes
Adequate Pain Control: Yes
Change in Mental Status: No
Current Postoperative Nausea & Vomiting: No
Anesthesia Complications: No
General Anesthetic Recall: No
Unplanned Admission: No
Post Op Hydration Adequate: Yes
[2023-08-30 08:29] LABS: Glucose - Point of Care 113 mg/dl (70-99)
[2023-08-30] MEDS: LOW STRENGTH ASPIRIN 81 MG PO (08:29)
[2023-08-30] MEDS: PROTONIX 40 MG PO (08:29)
[2023-08-30] MEDS: SENOKOT-S 1 TABLET PO ×2 (08:29→19:37)
[2023-08-30] MEDS: LIPITOR 80 MG PO (08:30)
[2023-08-30] MEDS: TORADOL 15 MG IV (08:30)
[2023-08-30] MEDS: PLAVIX 75 MG PO (08:30)
[2023-08-30] MEDS: PACERONE 200 MG PO ×3 (08:30→22:03)
[2023-08-30] MEDS: NEURONTIN 100 MG PO ×3 (08:31→22:03)
[2023-08-30] MEDS: BACTROBAN 2% OINTMENT 1 APPLIC NASAL ×2 (08:31→22:02)
[2023-08-30] MEDS: LIDOCAINE 4% PATCH 1 PATCH TOPICAL (08:31)
--- NOTE | 2023-08-30 08:50 | PTCARENOTE ---
Assumed care of patient at 0700. Pt is awake, alert, and oriented. Pt with continued complaints of pain, PRN Roxicodone and Toradol administered. Pt remains SR with HR 80's. BP 118/51 MAP 70. Titrating Levo down. CVP 4. Pulse oximetry 95% on room
air. Chest tubes x4 in place, no sign of air leak or crepitus, drainage serosanguineous. Pt tolerated PO medications. Allen catheter in place. Midsternal incision Aquacel dressing CDI. Left leg incision with Masood wrap overlay in place. Left groin
puncture site intact. Right IJ cordis and slick in place. Left radial [place] in place. Insulin gtt remains per glycemic protocol.
[2023-08-30] MEDS: NOVOLOG FLEXPEN 4 UNITS SC ×2 (09:54→13:13)
[2023-08-30 10:15] LABS: Glucose - Point of Care 98 mg/dl (70-99)
--- NOTE | 2023-08-30 10:35 | W.PN.CARDCBS ---
Today's Communication / Plan
-
Continue amiodarone, metoprolol, aspirin, Plavix.
Hemoglobin at 8.5 and continue to follow.
Continue postoperative care
Impression / Plan
-
PCP: Dr. Lopez
Logistics Team Leader: Dr. Lowery
Impression:
CAD
s/p CABG x 3 (GRACY-LAD, GSV-D1, GSV-OM) 08/29/2023
HTN
HLD
DM2
RBBB
h/o SAH
h/o CML w/ bone marrow transplant 1995
Echo 08/19/2023: EF 60-65%, no RWMA, no significant valvular disease
Plan:
-Underwent CABG x3 (GRACY-LAD, GSV-D1, GSV-OM) 08/29/2023 w/ Dr. Oliver.
-Extubated and now off pressors. In sinus rhythm. Continue amiodarone and metoprolol.
-Hemoglobin 8.5. Continue to follow
-Continue aspirin and plavix
-Continue post op care
Progress Note - Logistics Team Leader
Subjective
Date of Service: August 30, 2023
Having some incisional pain.
Objective
Labs:
08/30/23 03:59
08/30/23 03:59
Labs
Hgb 8.5 g/dL (13.0-18.0) L 08/30/23 03:59
Hct 23.7 % (39.0-52.0) L 08/30/23 03:59
Plt Count 265 10^3/uL (130-400) 08/30/23 03:59
PT 18.6 Sec (11.4-14.6) H 08/29/23 13:22
INR 1.57 08/29/23 13:22
APTT 26.2 Sec (23.4-35.0) 08/29/23 13:22
Sodium 140 mmol/L (135-145) 08/30/23 03:59
Potassium 4.6 mmol/L (3.5-5.1) 08/30/23 03:59
BUN 24 mg/dl (9-20) H 08/30/23 03:59
Creatinine 1.1 mg/dL (0.7-1.3) 08/30/23 03:59
Glucose 116 mg/dl (70-99) H 08/30/23 03:59
Vital Signs and I&O:
Vital Signs
Temp Pulse Resp BP Pulse Ox
98.1 F 82 17 96/72 93
08/30/23 10:00 08/30/23 10:00 08/30/23 10:00 08/30/23 10:00 08/30/23 10:00
Vital Signs
Temp Pulse Resp BP Pulse Ox
98.1 F 82 17 72 93
08/30/23 10:00 08/30/23 10:00 08/30/23 10:00 08/30/23 10:00 08/30/23 10:00
Intake & Output
08/28/23 08/29/23 08/30/23 08/31/23
06:59 06:59 06:59 06:59
Intake Total 1259.7 / 1301.5 128.2 / 128.2
Output Total 1250 / 1300 195 / 195
Balance 9.7 / 1.5 -66.8 / -66.8
Physical Exam
Physical Exam
GEN: No distress, awake, Ox3
HEENT: supple, anicteric, mmm
LUNGS: CTA, no wheezes/rales
CV: Reg, S1/S2, 1/6 syst LSB, no gallop
ABD: soft, BS+, NT/ND
EXT: No edema
NEURO: Gross non-focal
SKIN: sternotomy
--- NOTE | 2023-08-30 12:30 | PTCARENOTE ---
Levo titrated off by 0900. BP 105/67 MAP 79. Left Silvana and Right IJ slick d/c'd. Allen d/c'd 1030 due to void by 1630. Pt OOB to chair with 2 RN assist.
[2023-08-30] MEDS: NOVOLIN R INSULIN INFUSION 100 IV (12:34)
[2023-08-30 12:43] LABS: Glucose - Point of Care 112 mg/dl (70-99)
[2023-08-30] MEDS: NSS IV (13:11)
--- NOTE | 2023-08-30 13:56 | W.PN.INTV ---
Today's Communication / Plan
Recommendations
Continue to follow chest tube output
Follow H&H
Analgesia
Cardiac management
Postoperative care
Sign off
Assessment
-
Status post coronary artery bypass 08/29/2023
Postoperative mechanical ventilation
Postoperative anemia
Conditions present prior admission:
History of CML-status post bone marrow transplant 1996
Assessment and plan:
Doing well postoperative day 1
Anemia noted-no evidence of acute bleeding
No evidence for acute bleeding
Leukocytosis noted-likely reactive-monitor for fevers.
Follow H&H serially
Hemodynamics -acceptable on low-dose Levophed.
Wean off vasopressors as able
Normal renal function, adequate urinary output.
Allen urinary output
Chest tube with no excessive drainage-no air leak.
Chest x-ray reviewed: With no pneumothorax or fluid collections.
Advance diet as tolerated
Head of the bed elevation
Glycemic control per protocol
DVT prophylaxis when safe from the surgical perspective.
No additional recommendation from the critical care perspective
Sign off
Subjective Dataa
Subjective Data
Date of Service:
Date of Service: August 30, 2023
Chief Complaint: Professional Housing Consultant Follow Up (Status post coronary artery bypass)
Subjective:
No overnight events
Pain is controlled
Denies shortness of breath at rest
Review of Systems
Cardiopulmonary: Dyspnea (none at rest), Cough (n) and Sputum Production (n)
GI: Abdominal Pain (n)
Objective Data
Data Reviewed
Vital Signs / I&O / Oxygen:
Vital Signs
Temp Pulse Resp BP Pulse Ox
98.7 F 89 16 87/56 91
08/30/23 12:00 08/30/23 13:10 08/30/23 12:00 08/30/23 13:10 08/30/23 12:15
Intake and Output
08/29/23 08/30/23 08/31/23
06:59 06:59 06:59
Intake Total 1259.7 / 1301.5 150.4 / 150.4
Output Total 1250 / 1300 305 / 305
Balance 9.7 / 1.5 -154.6 / -154.6
SaO2 91
Nasal Cannula flow liters per 2
minute
Physical Exam
General: Respiratory Distress (n) and Comfortable
HEENT: Normocephalic
Cardiovascular: S1-S2
Respiratory: Clear, Non-Labored Respirations and Chest Tube (No air leak)
GI: Soft and Non Distended
Neurology: Awake and Alert
Labs/Micro/Reports
Lab Data
08/30/23 03:59
08/30/23 03:59
Laboratory Results
08/29/23 08/29/23
13:22 16:30
pH Cancelled 7.35
pCO2 Cancelled 42
pO2 Cancelled 155 H
HCO3 Cancelled 23.2
O2 Delivery Level Cancelled
[2023-08-30 14:33] LABS: Glucose - Point of Care 179 mg/dl (70-99)
--- NOTE | 2023-08-30 15:10 | PTCARENOTE ---
Left and right pleural chest tubes d/c'd per order without issue. Pt remains SR with RH 90's. BP 99/75 MAP 82. Pulse oximetry 93% on room air.
[2023-08-30 16:37] LABS: Glucose - Point of Care 171 mg/dl (70-99)
[2023-08-30] MEDS: NOVOLOG FLEXPEN-MODERATE RESISTANCE SC (17:35)
[2023-08-30 17:40] LABS: Glucose - Point of Care 103 mg/dl (70-99)
[2023-08-30] MEDS: ProAmatine 5 MG PO ×2 (17:59→23:25)
[2023-08-30] MEDS: GLUCOPHAGE 500 MG PO (17:59)
[2023-08-30] MEDS: VITAMIN C 500 MG PO (19:37)
--- NOTE | 2023-08-30 19:50 | PTCARENOTE ---
Pt Aox3, VSS, NSR on monitor, C/o pain 10/10 at chest incision site and left upper thigh. Post op dressing to midline incision is CDI. Left thigh bruised and tender to the touch, approximated with surgical glue. PRN Dilaudid given. [address] to wall suction, no evidence of crepitus or air leaks, serosanguineous drainage. Pt was oob in chair, moved back into bed with assist x2 for safety, he is steady on his feet but experiencing increased of pain with movement. Cordis in
right IJ, unable to flush. Plan of care on going.
[2023-08-30 22:12] LABS: Glucose - Point of Care 125 mg/dl (70-99)
[2023-08-31] VITALS (13 sets, daily range): BP systolic 95–159; BP diastolic 62–141; BMI 34.9
--- NOTE | 2023-08-31 00:20 | PTCARENOTE ---
Pt had episode of Hypotension, asymptomatic, 5mg midodrine and albumin given per PA.
[2023-08-31] MEDS: DILAUDID 0.5 MG IV (04:26)
[2023-08-31 04:30] LABS: Hemoglobin 7.7 g/dL (13.0-18.0); Mean Corp Hgb Conc. 33.5 g/dL (33.0-37.0); Mean Corpuscular Hgb 32.8 pg (27.0-31.0); Mean Corpuscular Volume 97.9 fL (80.0-94.0); Mean Platelet Volume 9.9 fL (7.4-10.4); Platelet Count 266 10^3/uL (130-400); Red Blood Cell Count 2.35 10^6/uL (4.70-6.10); Red Cell Dist. Width 14.6 % (11.5-14.5); White Blood Cell Count 20.4 10^3/uL (4.8-10.8)
[2023-08-31 04:54] LABS: Blood Urea Nitrogen 26 mg/dl (9-20); Calcium 9.1 mg/dl (8.4-10.2); Carbon Dioxide 26 mmol/L (22-30); Chloride 105 mmol/L (98-107); Estimated Creatinine Clearance 89 ml/min; Glucose 118 mg/dl (70-99); Magnesium 2.3 mg/dl (1.6-2.3); Potassium 4.6 mmol/L (3.5-5.1); Sodium 138 mmol/L (135-145); eGFR > 60.00
--- NOTE | 2023-08-31 05:31 | W.PN.CT ---
Today's Communication / Plan
-
-pod #2
-hypotensive overnight with BP of 84/54, asymptomatic, gave Midodrine 5mg and Albumin 250cc. BP improved.
-CT output: 2 meds 50/150 in 12/24 hrs
-h/h 7.7/23.0 (8.5/23.7) - follow
-follow daily ECG while on Amio and Tasigna (prolongs Qt), avoid K<4 or Mg<2
-current meds (ASA, Plavix, Amio, Lipitor, Protonix, Midodrine). Held Lopressor due to hypotension.
-encourage IS, OOB
Assessment / Plan
-
- Mv-CAD - s/p CABG x 3 (GRACY to LAD, GSV to D1, GSV to OM); LLE EVH on 08/29/[address] Oliver, pod #2
- Post-GABI: Hyperdynamic cardiac function w/ LVEF 65-70%, no RWMA, no valvular heart disease
- HTN/HLD
- DM II (HgA1c 5.8)
- Class 1 obesity (BMI 33)
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
- Chronic thrombocytosis
- Hx subarachnoid hemorrhage - no residual deficit
- Renal stones
- Bone marrow transplant 1995
- Acute postop blood loss anemia
- Acute postop atelectasis
- Acute postop vasoplegia
Subjective
Procedure
- s/p CABG x 3 (GRACY to LAD, GSV to D1, GSV to OM); LLE EVH on 08/29/[address] Oliver
-
Date of Service: August 31, 2023
Objective Data
-
Lab Results
08/31/23 04:15
08/31/23 04:15
PT 18.6 Sec (11.4-14.6) H 08/29/23 13:22
INR 1.57 08/29/23 13:22
APTT 26.2 Sec (23.4-35.0) 08/29/23 13:22
Vital Signs
Vital Signs
Temp Pulse Resp BP Pulse Ox
98.3 F 97 16 110/67 95
08/31/23 04:17 08/31/23 04:17 08/31/23 04:17 08/31/23 01:58 08/31/23 04:17
CT Intake/Output/Weight
08/30/23 08/30/23 08/31/23
06:59 18:59 06:59
Intake Total 603.3 / 1301.5 228.4 / 478.4 250 / 478.4
Output Total 590 / 1300 650 / 1150 500 / 1150
Balance 13.3 / 1.5 -421.6 / -671.6 -250 / -671.6
SaO2: 95
Physical Exam
-
General: AOx3
Cardiovascular: Regular rate & rhythm
Respiratory: Decreased Breath Sounds (at bases)
Sternum: Stable
Incision: Dressing Intact
Data Reviewed
-
Lab Results: Results Reviewed
--- NOTE | 2023-08-31 05:56 | PTCARENOTE ---
Pt hypotension resolved with albumin and midodrine. Pt c/o 9/10 left sternal pain, more with movement. PRN medications administered. Remains NSR on monitor, HR 130s with activity. Urine output adequate overnight.
[2023-08-31] MEDS: TYLENOL 1000 MG PO ×3 (06:17→20:38)
[2023-08-31] MEDS: FEOSOL 325 MG PO (07:55)
[2023-08-31] MEDS: PLAVIX 75 MG PO (07:55)
[2023-08-31] MEDS: ProAmatine 5 MG PO ×3 (07:55→17:38)
[2023-08-31] MEDS: NEURONTIN 100 MG PO ×3 (07:55→20:37)
[2023-08-31] MEDS: GLUCOPHAGE 500 MG PO ×2 (07:55→17:38)
[2023-08-31] MEDS: LOW STRENGTH ASPIRIN 81 MG PO (07:55)
[2023-08-31] MEDS: PROTONIX 40 MG PO (07:55)
[2023-08-31] MEDS: VITAMIN C 500 MG PO ×2 (07:56→20:37)
[2023-08-31] MEDS: SENOKOT-S 1 TABLET PO ×2 (07:56→20:41)
[2023-08-31] MEDS: LIDOCAINE 4% PATCH 1 PATCH TOPICAL (07:56)
[2023-08-31] MEDS: LIPITOR 80 MG PO (07:56)
[2023-08-31] MEDS: PACERONE 200 MG PO ×3 (07:56→20:39)
[2023-08-31] MEDS: BACTROBAN 2% OINTMENT 1 APPLIC NASAL ×2 (07:57→20:48)
--- NOTE | 2023-08-31 08:30 | PTCARENOTE ---
Assumed care of patient at 0700. Pt is awake, alert, and oriented. Pt remains SR with RBBB HR 80's-90's. BP 109/65 MAP 79. Pulse oximetry 96% on room air. Mediastinal chest tubes x2 in place, no sign of air leak or crepitus. Pt achieving 9460-1363
with IS, continued use encouraged. Pt tolerating PO diet. Voiding without difficulty in bathroom. Midsternal incision Aquacel dressing CDI. Left groin puncture dressing intact. Left leg incision intact. Right IJ cordis in place, very positional, CT
CERTIFIED PERSONAL CHEF aware.
[2023-08-31 09:19] LABS: Glucose - Point of Care 126 mg/dl (70-99)
--- NOTE | 2023-08-31 09:22 | W.PN.CARDCBS ---
Today's Communication / Plan
-
Doing well status post CABG. Hemoglobin at 7.7.
Continue amiodarone, metoprolol, aspirin, and Plavix.
QT interval is stable.
Follow counts with leukemia.
Impression / Plan
-
PCP: Dr. Lopez
Souvenir And Novelty Maker: Dr. Lowery
Impression:
CAD
s/p CABG x 3 (GRACY-LAD, GSV-D1, GSV-OM) 08/29/2023
HTN
HLD
DM2
RBBB
h/o SAH
h/o CML w/ bone marrow transplant 1995
Echo 08/19/2023: EF 60-65%, no RWMA, no significant valvular disease
Plan:
-Underwent CABG x3 (GRACY-LAD, GSV-D1, GSV-OM) 08/29/2023 w/ Dr. Oliver.
-Remain In sinus rhythm. Continue amiodarone and metoprolol.
-Hemoglobin 7.7. Continue to follow. QTc stable
-Continue aspirin and plavix
-Continue post op care
Progress Note - Souvenir And Novelty Maker
Subjective
Date of Service: August 31, 2023
overall feels well. no chest pains.
Objective
Labs:
08/31/23 04:15
08/31/23 04:15
Labs
Hgb 7.7 g/dL (13.0-18.0) L 08/31/23 04:15
Hct 23.0 % (39.0-52.0) L 08/31/23 04:15
Plt Count 266 10^3/uL (130-400) 08/31/23 04:15
PT 18.6 Sec (11.4-14.6) H 08/29/23 13:22
INR 1.57 08/29/23 13:22
APTT 26.2 Sec (23.4-35.0) 08/29/23 13:22
Sodium 138 mmol/L (135-145) 08/31/23 04:15
Potassium 4.6 mmol/L (3.5-5.1) 08/31/23 04:15
BUN 26 mg/dl (9-20) H 08/31/23 04:15
Creatinine 1.0 mg/dL (0.7-1.3) 08/31/23 04:15
Glucose 118 mg/dl (70-99) H 08/31/23 04:15
Vital Signs and I&O:
Vital Signs
Temp Pulse Resp BP Pulse Ox
98.3 F 93 18 109/65 96
08/31/23 04:17 08/31/23 08:42 08/31/23 08:42 08/31/23 07:51 08/31/23 08:42
Vital Signs
Temp Pulse Resp BP Pulse Ox
98.3 F 93 18 109/65 96
08/31/23 04:17 08/31/23 08:42 08/31/23 08:42 08/31/23 07:51 08/31/23 08:42
Intake & Output
08/29/23 08/30/23 08/31/23 09/01/23
06:59 06:59 06:59 06:59
Intake Total 1259.7 / 1301.5 478.4 / 478.4
Output Total 1250 / 1300 1190 / 1190
Balance 9.7 / 1.5 -711.6 / -711.6
Physical Exam
Physical Exam
GEN: No distress, awake, Ox3
HEENT: supple, anicteric, mmm
LUNGS: CTA, no wheezes/rales
CV: Reg, S1/S2, no rub
ABD: soft, BS+, NT/ND
EXT: No edema
NEURO: Gross non-focal
SKIN: sternotomy
[2023-08-31] MEDS: NOVOLOG FLEXPEN-MODERATE RESISTANCE SC ×2 (09:30→13:41)
--- NOTE | 2023-08-31 11:45 | PTCARENOTE ---
Mediastinal chest tubes d/c'd with CT SHELF STOCKER, Anna. Pt ambulating with RN assistance in room without issue. Pt remains SR with HR 90's. BP 116/62 MAP 76. Pulse oximetry 97% on room air.
[2023-08-31] MEDS: ROXICODONE 5 MG PO ×3 (11:47→22:41)
[2023-08-31] MEDS: NSS IV (13:09)
[2023-08-31 13:45] LABS: Glucose - Point of Care 137 mg/dl (70-99)
[2023-08-31] MEDS: LOPRESSOR 12.5 MG PO ×2 (14:04→20:40)
--- NOTE | 2023-08-31 15:57 | PTCARENOTE ---
Pt ambulated in leal with RN assistance. HR as high as 130 while ambulating, at rest HR 90's. CT NUCLEAR PLANT EQUIPMENT OPERATOR, Anna, made aware. Lopressor ordered. Pt remains SR now HR 80's. BP 95/62 MAP 74. Pt reports pain to be well controlled today. Pt currently OOB
in chair with at bedside.
[2023-08-31] MEDS: NOVOLOG FLEXPEN-MODERATE RESISTANCE 1 UNITS SC (17:41)
[2023-08-31 17:44] LABS: Glucose - Point of Care 150 mg/dl (70-99)
[2023-08-31] MEDS: FLEXERIL 5 MG PO (18:28)
--- NOTE | 2023-08-31 20:00 | PTCARENOTE ---
Assumed care of patient at 1900. Patient found in bed at time of assessment. Patient is AOx4, follows commands appropriately, moves all extremities. Assistx1 OOB. Lung sounds are diminished throughout and respirations are shallow. saO2 is 97% on RA.
Heart sounds have a regular rate and rhythms patient is SR on the monitor occasionally ST with exertion. Patient normal palpable pulses and trace pedal edema. Patient has round obese abdomen with active BS throughout no postop BM at this time.
Patient is voiding in the bathroom clear yellow. There is a sternal incision with aquacell dressing that is CDI, a L groin puncture with 4x4 dressing that is CDI, an ABD dressing over CT wounds that is CDI, and LLE incision approx with surg adhesive
JT. Patient has R IJ cordis and R hand 20G PIV. Patient has no complaints at this time. VSS.
[2023-08-31] MEDS: NON-FORMULARY ITEM 150 MG PO (20:32)
[2023-08-31 22:53] LABS: Glucose - Point of Care 124 mg/dl (70-99)
[2023-09-01] VITALS (16 sets, daily range): BP systolic 80–127; BP diastolic 55–74; PULSE 83; O2SAT 95–96; BMI 34.7
--- NOTE | 2023-09-01 00:59 | W.PN.CT ---
Addendum entered and electronically signed by Gerardo Oliver MD 09/01/23 12:51:
I saw and examined the patient.
The PA's note was reviewed and I agree with the note.
Comment:
D/C Cordis
OOB/IS/ambulate
Hopefully home tomorrow
Original Note:
Today's Communication / Plan
-
Consider DC cordis�
Follow daily ECG while on Amio and Tasigna (prolongs Qt= 488 on 08/30 = stable), avoid K<4 or Mg<2�
Current meds (ASA, Plavix, Amio, Lipitor, Protonix, Midodrine, Lopressor) �
Encourage IS, OOB�
Lopressor increased to 25 mg Q12�
Encourage IS, OOB�
Restarted [place]�
Consider DC midodrine if BP OK.
Assessment / Plan
-
- Mv-CAD - s/p CABG x 3 (GRACY to LAD, GSV to D1, GSV to OM); LLE EVH on 08/29/[address] Oliver, pod #3
- Post-GABI: Hyperdynamic cardiac function w/ LVEF 65-70%, no RWMA, no valvular heart disease
- HTN/HLD
- DM II (HgA1c 5.8)
- Class 1 obesity (BMI 33)
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
- Chronic thrombocytosis
- Hx subarachnoid hemorrhage - no residual deficit
- Renal stones
- Bone marrow transplant 1995
- Acute postop blood loss anemia
- Acute postop atelectasis
- Acute postop vasoplegia
Subjective
Procedure
- s/p CABG x 3 (GRACY to LAD, GSV to D1, GSV to OM); LLE EVH on 08/29/[address] Oliver
-
Date of Service: September 01, 2023
Objective Data
-
PT 18.6 Sec (11.4-14.6) H 08/29/23 13:22
INR 1.57 08/29/23 13:22
APTT 26.2 Sec (23.4-35.0) 08/29/23 13:22
Vital Signs
Vital Signs
Temp Pulse Resp BP Pulse Ox
98.0 F 77 22 129/75 96
08/31/23 23:06 08/31/23 23:06 08/31/23 23:06 08/31/23 23:06 08/31/23 23:06
CT Intake/Output/Weight
08/31/23 08/31/23 09/01/23
06:59 18:59 06:59
Intake Total 250 / 478.4
Output Total 540 / 1190
Balance -290 / -711.6
SaO2: 96
Physical Exam
-
General: Awake
Cardiovascular: Regular rate & rhythm
Respiratory: Clear
Sternum: Stable
Incision: Clean
Extremities: Edema +1
--- NOTE | 2023-09-01 01:06 | PTCARENOTE ---
Patient reassessed. VSS. Patient c/o 09/07 pain given Re 5 appears to have resolved pain. Currently in SR with BBB on the phototypesetting equipment monitor.
[2023-09-01] MEDS: ROXICODONE 5 MG PO ×2 (03:28→21:35)
[2023-09-01] MEDS: FLEXERIL 5 MG PO (03:28)
--- NOTE | 2023-09-01 04:45 | PTCARENOTE ---
Patient reassessed. Patient c/o pain again give carlos 5. Patient also c/o muscle spasm given flexeril. AM labs obtained. Remains SR with BBB on the monitor.
[2023-09-01 05:03] LABS: Hematocrit 23.2 % (39.0-52.0); Hemoglobin 7.7 g/dL (13.0-18.0); Mean Corp Hgb Conc. 33.2 g/dL (33.0-37.0); Mean Corpuscular Volume 99.6 fL (80.0-94.0); Platelet Count 291 10^3/uL (130-400); Red Blood Cell Count 2.33 10^6/uL (4.70-6.10); Red Cell Dist. Width 14.9 % (11.5-14.5)
[2023-09-01 05:31] LABS: Blood Urea Nitrogen 22 mg/dl (9-20); Calcium 8.8 mg/dl (8.4-10.2); Carbon Dioxide 31 mmol/L (22-30); Chloride 103 mmol/L (98-107); Estimated Creatinine Clearance 81 ml/min; Glucose 122 mg/dl (70-99); Magnesium 2.1 mg/dl (1.6-2.3); Potassium 4.4 mmol/L (3.5-5.1); Sodium 139 mmol/L (135-145); eGFR > 60.00
[2023-09-01] MEDS: NOVOLOG FLEXPEN-MODERATE RESISTANCE SC ×3 (07:22→16:19)
[2023-09-01] MEDS: TYLENOL 1000 MG PO ×3 (07:37→21:34)
[2023-09-01] MEDS: BACTROBAN 2% OINTMENT 1 APPLIC NASAL ×2 (07:38→20:13)
[2023-09-01] MEDS: LIDOCAINE 4% PATCH TOPICAL (07:40)
[2023-09-01] MEDS: FEOSOL 325 MG PO (07:54)
[2023-09-01] MEDS: ProAmatine 5 MG PO (07:54)
[2023-09-01] MEDS: PLAVIX 75 MG PO (07:54)
[2023-09-01] MEDS: NEURONTIN 100 MG PO ×3 (07:54→21:35)
[2023-09-01] MEDS: PROTONIX 40 MG PO (07:55)
[2023-09-01] MEDS: GLUCOPHAGE 500 MG PO ×2 (07:56→20:04)
[2023-09-01] MEDS: LIPITOR 80 MG PO (07:56)
[2023-09-01] MEDS: VITAMIN C 500 MG PO ×2 (07:56→21:34)
[2023-09-01] MEDS: SENOKOT-S 1 TABLET PO ×2 (07:56→21:34)
[2023-09-01] MEDS: BUMEX 2 MG IV (07:57)
[2023-09-01] MEDS: PACERONE 200 MG PO ×3 (07:57→21:36)
--- NOTE | 2023-09-01 08:00 | PTCARENOTE ---
resumed care of patient from previous RN. OOB in chair at time of assessment and walking rounds completed. AAOx3. VSS. diminished throughout lungs. saO2 is 97% on RA. SR/ST with pulses palpable and trace edema. active BS. BRP. all surgical sites
CDI. Patient has R IJ cordis and R hand 20G PIV. will continue to monitor.
[2023-09-01] MEDS: LOW STRENGTH ASPIRIN 81 MG PO (08:02)
[2023-09-01] MEDS: NSS IV (08:02)
[2023-09-01] MEDS: LOPRESSOR 12.5 MG PO (08:21)
--- NOTE | 2023-09-01 14:46 | CM ---
dc plans remain home when medically stable and f/u visist fromthe ct transitional care nurse
[2023-09-01 14:52] LABS: Glucose - Point of Care 143 mg/dl (70-99)
--- NOTE | 2023-09-01 15:05 | PTCARENOTE ---
Assumed care of this patient. Pt missed midodrine dose and current bp very stable. Unable to remove cordis , peripheral IV not flushing. Attempted to find adequate IV access but was unable to find a suitable vein. Pt has a long cancer history
and he reports that he is an impossible stick. IV team paged and will come.
[2023-09-01] MEDS: ProAmatine PO (15:17)
--- NOTE | 2023-09-01 16:05 | PTCARENOTE ---
Pt states he does not take metformin until 2 hours after he eats and he reports that his insurance company set the guidelines for metformin. Will give metformin two hours after dinner. Pt did not eat lunch today.
--- NOTE | 2023-09-01 16:13 | PTCARENOTE ---
Pt has not had bm since 08/27. Will give MOM as requested by patient, will ensure that he is receiving stool softeners.
[2023-09-01] MEDS: MILK OF MAGNESIA 30 ML PO (16:19)
--- NOTE | 2023-09-01 16:25 | PTCARENOTE ---
Discussed blood pressure in the setting of midodrine, notified CT surgery that he has not had midodrine since 8 am. Midodrine will be given bid now. Also discussed constipation and pericolace is only once daily. MOM given and additional bisacodyl
po ordered by ct surgery.
[2023-09-01] MEDS: DULCOLAX 5 MG PO (17:40)
--- NOTE | 2023-09-01 17:53 | W.PN.CARDCBS ---
Today's Communication / Plan
-
Doing well
Appreciate efforts of CT surgery
Impression / Plan
-
PCP: Dr. Lopez
Developmental Electronics Assembler: Dr. Lowery
Impression:
CAD
s/p CABG x 3 (GRACY-LAD, GSV-D1, GSV-OM) 08/29/2023
HTN
HLD
DM2
RBBB
h/o SAH
h/o CML w/ bone marrow transplant 1995
Echo 08/19/2023: EF 60-65%, no RWMA, no significant valvular disease
-Underwent CABG x3 (GRACY-LAD, GSV-D1, GSV-OM) 08/29/2023
Plan:
Overall doing well, hemoglobin is 7.7.
Incisional discomfort is managing.
Major issue now is increasing mobility.
Progress Note - Developmental Electronics Assembler
Subjective
Date of Service: September 01, 2023:
PMH/PSH/SH/FH: Reviewed
Allergies: None
Outpatient meds, current meds reviewed
ROS: Negative except as above
112/72, pulse 90, respirate 18, head neck exam unremarkable, lungs are clear, sternal incision intact with Aquacel, regular rate and rhythm, no obvious murmurs, abdomen benign, vein harvest site intact, no lines
Hemoglobin 7.7, platelets are 291, hemoglobin stable, BUN and creatinine 22 and 1.1
Chest x-ray today, small effusion left, cardiomegaly, limited inspiration
Objective
Labs:
09/01/23 04:51
09/01/23 04:51
Labs
Hgb 7.7 g/dL (13.0-18.0) L 09/01/23 04:51
Hct 23.2 % (39.0-52.0) L 09/01/23 04:51
Plt Count 291 10^3/uL (130-400) 09/01/23 04:51
PT 18.6 Sec (11.4-14.6) H 08/29/23 13:22
INR 1.57 08/29/23 13:22
APTT 26.2 Sec (23.4-35.0) 08/29/23 13:22
Sodium 139 mmol/L (135-145) 09/01/23 04:51
Potassium 4.4 mmol/L (3.5-5.1) 09/01/23 04:51
BUN 22 mg/dl (9-20) H 09/01/23 04:51
Creatinine 1.1 mg/dL (0.7-1.3) 09/01/23 04:51
Glucose 122 mg/dl (70-99) H 09/01/23 04:51
Vital Signs and I&O:
Vital Signs
Temp Pulse Resp BP Pulse Ox
36.9 C 90 18 112/72 99
09/01/23 14:39 09/01/23 17:00 09/01/23 14:39 09/01/23 15:58 09/01/23 15:30
Vital Signs
Temp Pulse Resp BP Pulse Ox
36.9 C 90 18 112/72 99
09/01/23 14:39 09/01/23 17:00 09/01/23 14:39 09/01/23 15:58 09/01/23 15:30
Intake & Output
08/30/23 08/31/23 09/01/23 09/02/23
07:59 07:59 07:59 07:59
Intake Total 1301.5 / 1343.3 436.6 / 436.6 450 / 450
Output Total 1300 / 1365 1140 / 1140
Balance 1.5 / -21.7 -703.4 / -703.4 450 / 450
Physical Exam
Physical Exam
See above
--- NOTE | 2023-09-01 20:30 | PTCARENOTE ---
Patient received resting in bed watching television. Patient A+A+Ox3. No neurological deficits noted. Patient walked in hallway with at start of shift. Heart rate 100-120's. No c/o headache, dizziness or lightheadedness. No c/o SOB. Room
air. SaO2 97%. Patient with no c/o chest pain, pressure or discomfort. Sinus Rhythm. Heart rate 90's in bed, resting. Chest tube dressing intact. Abdomen soft, nontender, nondistended. Normoactive bowel sounds. No BM. No c/o nausea. No
vomiting. Voiding without difficulty. Sternal Aquacell dressing intact. Left groin dressing intact. Left knee incision intact - Surgical adhesive - Open to air. Left upper leg with areas of purplish ecchymosis. Positive palpable pulses.
Bilateral pedal edema. Patient with no c/o back or flank pain. Assessment as documented.
[2023-09-01] MEDS: NON-FORMULARY ITEM 150 MG PO (21:07)
[2023-09-01] MEDS: CORDARONE 103 MG IV (21:12)
[2023-09-01] MEDS: CALCIUM GLUCONATE 100 IV (23:15)
[2023-09-02] VITALS (14 sets, daily range): BP systolic 91–141; BP diastolic 54–95; PULSE 98; O2SAT 98–99; BMI 34.4
[2023-09-02] LABS: Glucose - Point of Care 153 mg/dl (70-99)
--- NOTE | 2023-09-02 00:30 | PTCARENOTE ---
Patient ordered by PA (Eugenio Slaughter PA-C) and administered Amiodarone bolus via #22P left forearm placed today. Patient ordered by PA and administered Calcium gluconate IV. Patient now sleeping without difficulty. Assessment as documented.
--- NOTE | 2023-09-02 04:02 | W.PN.CT ---
Addendum entered and electronically signed by Gerardo Oliver MD 09/02/23 08:13:
I saw and examined the patient.
The PA's note was reviewed and I agree with the note.
Comment:
Doing well.
Continued tachycardia w/ ambulation w/ lethargy & lightheadedness in setting of postoperative anemia (Hgb 7.7)
- Resume BB
- Transfuse 1U PRBC
- OOB/IS/ambulate
- D/C planning for hopefully tomorrow
Original Note:
Today's Communication / Plan
-
-No major issues overnight. Hemodynamically and neurologically intact
-Noted to be hypotensive requiring Midodrine which is currently on hold given improving BP
-Noted to be tachycardic with ambulation which is likely d/t postop anemia, denies lightheadedness/dizziness. Monitor h/h pending this AM, was 7.7/23.2 yesterday
-Will resume home BB /Toprol XL @ 12.5 mg QD and uptitrate as BP permits. Will increase Amiodarone to 400 mg PO TID given tachycardia
-Cont. ASA and Plavix
-Monitor QT-interval while on T[place]a for hx of CML s/p bone marrow transplant
-F/U 2-view cxr
-OOB into chair/Ambulate
-Encourage use of IS
-Home later today vs tomorrow
Assessment / Plan
-
- Mv-CAD - s/p CABG x 3 (GRACY to LAD, GSV to D1, GSV to OM); LLE EVH on 08/29/[address] Oliver, pod #4
- Post-GABI: Hyperdynamic cardiac function w/ LVEF 65-70%, no RWMA, no valvular heart disease
- HTN/HLD
- DM II (HgA1c 5.8)
- Class 1 obesity (BMI 33)
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
- Chronic thrombocytosis
- Hx subarachnoid hemorrhage - no residual deficit
- Renal stones
- Bone marrow transplant 1995
- Acute postop blood loss anemia
- Acute postop atelectasis
- Acute postop vasoplegia
-Acute postop hypovolemia with subsequent hypervolemia
-Acute postop tachycardia
Discussed patient care with: Cardiology, Nursing, Respiratory Therapy, Pharmacy and Care Team
Subjective
Procedure
- s/p CABG x 3 (GRACY to LAD, GSV to D1, GSV to OM); LLE EVH on 08/29/[address] Oliver
-
Date of Service: September 02, 2023
Pt c/o mild incisional pain, otherwise feels well. Ambulating without difficulty, tachycardic with ambulation. Denies lightheadedness/dizziness
Objective Data
-
PT 18.6 Sec (11.4-14.6) H 08/29/23 13:22
INR 1.57 08/29/23 13:22
APTT 26.2 Sec (23.4-35.0) 08/29/23 13:22
Vital Signs
Vital Signs
Temp Pulse Resp BP Pulse Ox
98.7 F 81 16 106/74 95
09/01/23 23:15 09/02/23 02:30 09/01/23 23:15 09/01/23 23:16 09/02/23 02:30
CT Intake/Output/Weight
09/01/23 09/01/23 09/02/23
06:59 18:59 06:59
Intake Total 450 / 890 440 / 890
Balance 450 / 890 440 / 890
SaO2: 95 (RA)
Physical Exam
-
General: Awake, Oriented and AOx3
Cardiovascular: Regular rate & rhythm, No Murmurs and No Gallop
Respiratory: Decreased Breath Sounds
Sternum: Stable
Incision: Clean, Dry and Dressing Intact
Extremities: Other (+trace edema)
Data Reviewed
-
Lab Results: Results Reviewed
Medications: Active Meds Reviewed
Chest X-Ray: Report Reviewed and Image Reviewed
ECG: Report Reviewed and Image Reviewed
[2023-09-02 05:30] LABS: Hematocrit 23.1 % (39.0-52.0); Hemoglobin 7.7 g/dL (13.0-18.0); Mean Corp Hgb Conc. 33.3 g/dL (33.0-37.0); Mean Corpuscular Hgb 32.5 pg (27.0-31.0); Mean Corpuscular Volume 97.5 fL (80.0-94.0); Mean Platelet Volume 9.6 fL (7.4-10.4); Platelet Count 380 10^3/uL (130-400); Red Blood Cell Count 2.37 10^6/uL (4.70-6.10); Red Cell Dist. Width 14.7 % (11.5-14.5); White Blood Cell Count 15.8 10^3/uL (4.8-10.8)
--- NOTE | 2023-09-02 05:30 | PTCARENOTE ---
Patient A+A+Ox3. No neurological deficits noted. Patient ambulating to bathroom by self without difficulty. Voiding. No BM. AM lab work collected and sent. EKG completed. Patient given CHG bath and linens changed. Standing scale weight 102.6
kg. Assessment/Interventions.
[2023-09-02] MEDS: TYLENOL PO (05:49)
[2023-09-02 05:54] LABS: Blood Urea Nitrogen 20 mg/dl (9-20); Calcium 9.2 mg/dl (8.4-10.2); Carbon Dioxide 29 mmol/L (22-30); Chloride 103 mmol/L (98-107); Estimated Creatinine Clearance 81 ml/min; Glucose 119 mg/dl (70-99); Magnesium 2.3 mg/dl (1.6-2.3); Potassium 4.2 mmol/L (3.5-5.1); Sodium 138 mmol/L (135-145); eGFR > 60.00
--- NOTE | 2023-09-02 08:00 | PTCARENOTE ---
pt received from previous RN, oriented, OOB in chair. SR/ST on the monitor, 90-100s. SBP 120s. palpable pulses. pt on RA, 99-100% POX. lungs diminished. IS encouraged. pt abdomen round, s/n, denies n/v. diet tolerated well. voids. sternal aquacel
intact, chest tube dressing c/d/i. L groin c/d/i. L Knee incision approximated. PIV. see worklist for VS, I&O, and assessment.
[2023-09-02] MEDS: PACERONE 400 MG PO ×3 (08:56→22:59)
[2023-09-02] MEDS: VITAMIN C 500 MG PO ×2 (08:56→20:46)
[2023-09-02] MEDS: LOW STRENGTH ASPIRIN 81 MG PO (08:56)
[2023-09-02] MEDS: PROTONIX 40 MG PO (08:56)
[2023-09-02] MEDS: PLAVIX 75 MG PO (08:56)
[2023-09-02] MEDS: TOPROL XL 25 MG PO (08:57)
[2023-09-02] MEDS: LIDOCAINE 4% PATCH TOPICAL (08:57)
[2023-09-02] MEDS: LIPITOR 80 MG PO (08:57)
[2023-09-02] MEDS: NEURONTIN 100 MG PO ×3 (08:57→22:59)
[2023-09-02] MEDS: SENOKOT-S 1 TABLET PO ×2 (08:57→20:46)
[2023-09-02] MEDS: GLUCOPHAGE 500 MG PO ×2 (08:57→16:14)
[2023-09-02] MEDS: FEOSOL 325 MG PO (08:57)
[2023-09-02] MEDS: BACTROBAN 2% OINTMENT 1 APPLIC NASAL (08:58)
[2023-09-02] MEDS: ROXICODONE 5 MG PO (09:00)
[2023-09-02 09:34] LABS: Glucose - Point of Care 111 mg/dl (70-99)
[2023-09-02] MEDS: NOVOLOG FLEXPEN-MODERATE RESISTANCE SC ×2 (09:52→14:45)
--- NOTE | 2023-09-02 12:45 | PTCARENOTE ---
pt VSS, no changes in assessment. 1 unit PRBC transfused as ordered.
[2023-09-02] MEDS: NSS IV (12:51)
[2023-09-02] MEDS: TYLENOL 1000 MG PO ×2 (12:59→22:59)
[2023-09-02] MEDS: BUMEX 2 MG IV (12:59)
--- NOTE | 2023-09-02 16:30 | PTCARENOTE ---
pt VSS, no changes in assessment. OOB in chair. ambulates to bathroom to void.
--- NOTE | 2023-09-02 16:59 | W.PN.CARDCBS ---
Today's Communication / Plan
-
Stable postop status
Impression / Plan
-
PCP: Dr. Lopez
Computer Forensics Technician: Dr. Lowery
Impression:
CAD
s/p CABG x 3 (GRACY-LAD, GSV-D1, GSV-OM) 08/29/2023
HTN
HLD
DM2
RBBB
h/o SAH
h/o CML w/ bone marrow transplant 1995
Echo 08/19/2023: EF 60-65%, no RWMA, no significant valvular disease
-Underwent CABG x3 (GRACY-LAD, GSV-D1, GSV-OM) 08/29/2023
Plan:
He continues to do well status post CABG
Hemoglobin remains low at 7.7
Remains in sinus rhythm
Progress Note - Computer Forensics Technician
Subjective
Date of Service: September 02, 2023
No complaints.
Objective
Labs:
09/02/23 05:09
09/02/23 05:09
Labs
Hgb 7.7 g/dL (13.0-18.0) L 09/02/23 05:09
Hct 23.1 % (39.0-52.0) L 09/02/23 05:09
Plt Count 380 10^3/uL (130-400) D 09/02/23 05:09
PT 18.6 Sec (11.4-14.6) H 08/29/23 13:22
INR 1.57 08/29/23 13:22
APTT 26.2 Sec (23.4-35.0) 08/29/23 13:22
Sodium 138 mmol/L (135-145) 09/02/23 05:09
Potassium 4.2 mmol/L (3.5-5.1) 09/02/23 05:09
BUN 20 mg/dl (9-20) 09/02/23 05:09
Creatinine 1.1 mg/dL (0.7-1.3) 09/02/23 05:09
Glucose 119 mg/dl (70-99) H 09/02/23 05:09
Vital Signs and I&O:
Vital Signs
Temp Pulse Resp BP Pulse Ox
98.5 F 81 18 91/54 99
09/02/23 16:17 09/02/23 16:15 09/02/23 16:17 09/02/23 16:15 09/02/23 16:17
Vital Signs
Temp Pulse Resp BP Pulse Ox
98.5 F 81 18 91/54 99
09/02/23 16:17 09/02/23 16:15 09/02/23 16:17 09/02/23 16:15 09/02/23 16:17
Intake & Output
08/31/23 09/01/23 09/02/23 09/03/23
06:59 06:59 06:59 06:59
Intake Total 478.4 / 478.4 890 / 890 500 / 500
Output Total 1190 / 1190 600 / 600
Balance -711.6 / -711.6 890 / 890 -100 / -100
Physical Exam
Physical Exam
General: Well developed, well nourished in NAD.
Neck: Supple, no JVD, HJR, carotids +2 B/L, no bruits bilaterally.
Heart: Non displaced PMI, RRR, no murmurs, No S3, S4, no rubs.
Lungs: Scattered rhonchi
Sternal dressings noted
Extremities: No clubbing, cyanosis or edema bilaterally.
Neuro: Grossly nonfocal, awake, alert and oriented x3.
[2023-09-02 17:58] LABS: Glucose - Point of Care 153 mg/dl (70-99)
[2023-09-02] MEDS: DULCOLAX 10 MG RECTAL (18:11)
[2023-09-02] MEDS: NOVOLOG FLEXPEN-MODERATE RESISTANCE 1 UNITS SC (18:11)
--- NOTE | 2023-09-02 18:20 | PTCARENOTE ---
pt ambulated in hallways independently. pt c/o constipation, PRN Dulcolax suppository given. OOB in chair for dinner.
[2023-09-02] MEDS: NON-FORMULARY ITEM 150 MG PO (20:46)
--- NOTE | 2023-09-02 21:00 | PTCARENOTE ---
Patient A+A+Ox3. No neurological deficits noted. Patient ambulating in room and to bathroom by self. No s/s of respiratory distress. Room air. SaO2 97%. Sinus Rhythm. Heart rate 80-90's. With ambulation - HR 100-120. No c/o chest pain,
pressure or discomfort. Normoactive bowel sounds. No BM. Voiding without difficulty. Sternal Aquacell dressing intact. Four chest tube sutures intact and open to air. Left groin dressing intact. Left knee incision intact and open to air.
Left upper leg ecchymotic. Assessment as documented.
[2023-09-02] MEDS: FLEET PHOSPHATE ENEMA-ADULT 135 ML RECTAL (23:07)
[2023-09-02 23:45] LABS: Glucose - Point of Care 160 mg/dl (70-99)
[2023-09-03] VITALS (7 sets, daily range): BP systolic 98–117; BP diastolic 51–69; PULSE 91; O2SAT 98–99; BMI 33.9
--- NOTE | 2023-09-03 00:30 | PTCARENOTE ---
Patient to bathroom multiple times attempting to have BM. Unable to have BM. Fleet Phosphate Enema ordered by PA and administered without difficulty. Patient with large BM. Patient now sleeping without difficulty. Assessment as documented.
--- NOTE | 2023-09-03 02:41 | W.PN.CT ---
Addendum entered and electronically signed by BRIDGET Finney 09/22/23 13:17:
Edit:
Instead of 'post-op vasoplegia' change to 'Vasodilatory shock'
Original Note:
Today's Communication / Plan
-
-pod #5
-no issues overnight. Pt ambulated on 09/01 without any dizziness
-s/p 1 pRBC and 2 mg iv Bumex on 09/01
-follow ECG re: prolonged Qt (currently on Tasigna, decreased Amio)
-low BP, required Midodrine earlier - improved. Increase Toprol as tolerated for tachycardia
-current meds (ASA, Plavix, Lipitor, Toprol XL 25 qd, Amio, Tasigna, po iron, Protonix)
-encourage IS, OOB
Assessment / Plan
-
- Mv-CAD - s/p CABG x 3 (GRACY to LAD, GSV to D1, GSV to OM); LLE EVH on 08/29/[address] Oliver, pod #5
- Post-GABI: Hyperdynamic cardiac function w/ LVEF 65-70%, no RWMA, no valvular heart disease
- HTN/HLD
- DM II (HgA1c 5.8)
- Class 1 obesity (BMI 33)
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
- Chronic thrombocytosis
- Hx subarachnoid hemorrhage - no residual deficit
- Renal stones
- Bone marrow transplant 1995
- Acute postop blood loss anemia- s/p 1 pRBC on 09/01
- Acute postop atelectasis
- Acute postop vasoplegia
- Acute postop hypovolemia with subsequent hypervolemia
- Acute postop tachycardia
- Prolonged Qt - follow (on Amio and Tasigna)
Discussed patient care with: Nursing and Care Team
Subjective
Procedure
- s/p CABG x 3 (GRACY to LAD, GSV to D1, GSV to OM); LLE EV on 08/29/[address] Oliver
-
Date of Service: September 03, 2023
Objective Data
-
PT 18.6 Sec (11.4-14.6) H 08/29/23 13:22
INR 1.57 08/29/23 13:22
APTT 26.2 Sec (23.4-35.0) 08/29/23 13:22
Vital Signs
Vital Signs
Temp Pulse Resp BP Pulse Ox
97.9 F 107 16 141/67 99
09/02/23 22:57 09/02/23 22:59 09/02/23 22:57 09/02/23 22:59 09/02/23 22:57
CT Intake/Output/Weight
09/02/23 09/02/23 09/03/23
06:59 18:59 06:59
Intake Total 440 / 890 500 / 740 240 / 740
Output Total 600 / 1000 400 / 1000
Balance 440 / 890 -100 / -260 -160 / -260
SaO2: 99
Physical Exam
-
General: Awake and AOx3
Cardiovascular: Regular rate & rhythm, No Murmurs and No Rub
Respiratory: Rales (at bases. No wheeze) and Decreased Breath Sounds
Sternum: Stable
Incision: Clean, Dry and Intact
Extremities: Edema +1
Data Reviewed
-
Lab Results: Results Reviewed
Medications: Active Meds Reviewed
Chest X-Ray: Report Reviewed and Image Reviewed
ECG: Report Reviewed and Image Reviewed
[2023-09-03] MEDS: TYLENOL PO (05:00)
--- NOTE | 2023-09-03 05:30 | PTCARENOTE ---
Patient A+A+Ox3. No neurological deficits noted. AM lab work collected and sent. EKG completed. Standing scale weight 101.1 kg. Patient resting in bed. Assessment/Interventions as documented.
[2023-09-03 06:15] LABS: Hematocrit 28.3 % (39.0-52.0); Mean Corp Hgb Conc. 33.2 g/dL (33.0-37.0); Mean Corpuscular Hgb 31.3 pg (27.0-31.0); Mean Corpuscular Volume 94.3 fL (80.0-94.0); Mean Platelet Volume 9.7 fL (7.4-10.4); Platelet Count 419 10^3/uL (130-400); White Blood Cell Count 17.8 10^3/uL (4.8-10.8)
[2023-09-03 06:18] LABS: Blood Urea Nitrogen 22 mg/dl (9-20); Calcium 9.1 mg/dl (8.4-10.2); Carbon Dioxide 27 mmol/L (22-30); Chloride 102 mmol/L (98-107); Estimated Creatinine Clearance 74 ml/min; Glucose 122 mg/dl (70-99); Potassium 4.6 mmol/L (3.5-5.1); Sodium 140 mmol/L (135-145); eGFR > 60.00
[2023-09-03 06:39] LABS: Hemoglobin 9.4 g/dL (13.0-18.0)
[2023-09-03] MEDS: NSS IV (07:34)
[2023-09-03] MEDS: LIDOCAINE 4% PATCH TOPICAL (07:34)
[2023-09-03] MEDS: PLAVIX 75 MG PO (07:41)
[2023-09-03] MEDS: PROTONIX 40 MG PO (07:41)
[2023-09-03] MEDS: LOW STRENGTH ASPIRIN 81 MG PO (07:41)
[2023-09-03] MEDS: TOPROL XL 25 MG PO (07:41)
[2023-09-03] MEDS: LIPITOR 80 MG PO (07:41)
[2023-09-03] MEDS: NEURONTIN 100 MG PO (07:41)
[2023-09-03] MEDS: SENOKOT-S 1 TABLET PO (07:41)
[2023-09-03] MEDS: VITAMIN C 500 MG PO (07:42)
[2023-09-03] MEDS: GLUCOPHAGE 500 MG PO (07:42)
[2023-09-03] MEDS: FEOSOL 325 MG PO (07:42)
[2023-09-03] MEDS: PACERONE 200 MG PO (07:42)
[2023-09-03 07:53] LABS: Glucose - Point of Care 117 mg/dl (70-99)
[2023-09-03] MEDS: NOVOLOG FLEXPEN-MODERATE RESISTANCE SC ×2 (07:53→12:55)
--- NOTE | 2023-09-03 08:00 | PTCARENOTE ---
pt received from previous RN, oriented, OOB in chair. SR on the monitor, HR 80s. SBP 110s. palpable pulses. trace LE edema. pt on RA, 97% POX. lungs diminished. IS encouraged. pt abdomen round, s/n, denies n/v. diet tolerated well. +BM overnight per
pt. voids. sternal aquacel intact, chest tube dressing sutures JT. L groin c/d/i. L Knee incision approximated. PIV. see worklist for VS, I&O, and assessment.
[2023-09-03] MEDS: LASIX 40 MG PO (08:16)
--- NOTE | 2023-09-03 08:58 | W.DCSUMMARY ---
Discharge Summary
Discharge Data
Date of Admission: 08/29/23
Date of Discharge: 09/05/23
Total time spent discharging patient (in min): 40
-
Pending Results: No
Hospital Course
Primary care physician:
Dr Rico Lopez
Outpatient nub card tender:
Dr Lowery
Inpatient consultants:
DCA, abattoir manager
Procedures:
1. Coronary artery bypass graft x3 (GRACY to LAD, GSV to D1, GSV to
OM)
Primary Diagnosis:
1. Multivessel coronary artery disease.
Secondary Diagnoses:
1. Hypertension
2. Hyperlipidemia
3. Xaw-wzwaxsw-hhswxzdao diabetes mellitus
4. Chronic myelogenous leukemia
5. Morbid obesity
6. History of subarachnoid hemorrhage
HPI: 62-year-old male seen in the office by Dr. Oliver presented electively on 08/28 for a CABG.
Hospital course:
Patient was electively admitted on 06/28. He returned from the CV OR to the CVICU on Levophed, insulin, and Precedex infusions. Precedex was weaned off and patient was extubated by 1700. On 6/1 postoperative day #1 patient was weaned off Levophed
and started on midodrine. Pleural chest tubes were removed and Toradol was given for pain. Beta-blockers were held given patient's use of midodrine. Patient's insulin drip was weaned off and metformin was resumed along with sliding scale insulin.
On 6/2 postoperative day #2 mediastinal chest tube was removed and patient's pain improved significantly. Patient was started on a low-dose beta-new due to tachycardia and patient's home tasigna was resumed. On 6/3 postoperative day #3
patient's midodrine was decreased and he was diuresed with 2 mg of IV Bumex. On 09/01 postoperative day #4 patient's metoprolol was changed to metoprolol XL and midodrine was discontinued. He was again diuresed with 2 mg of IV Bumex after receiving
1 unit of PRBCs for anemia. 2 view chest x-ray remained stable. On 6/5 postoperative day #5 patient's blood pressure improved and is tolerating his metoprolol XL. He was diuresed with oral Lasix today and will be discharged home with a 7-day
course of Lasix.
Home medication changes:
See below
Discharge Plan
-
Patient Disposition: Home (Routine Discharge)
Discharge Diagnosis/Procedures: CABG
Condition: Good
Diet: Low Cholesterol, Low Sodium and Diabetic, Carb Controlled
Activity: No strenuous activity
Driving Restrictions: Not until seen by your Dr
Bathing Restrictions: OK to Shower
Other Services: Cardiac Rehab
Specialty Instructions: Weigh Daily- Call MD for wt gain/loss 3 lbs overnight/5 lbs in 1 week
Activity Restrictions/Additional Instructions:
ACTIVITY:
-No strenuous activity: no heavy lifting, pushing, pulling anything over 15 pounds for one month
-continue to use stairs as tolerated
DRIVING RESTRICTIONS:
-No driving for one month or until approved by your surgeon
WOUND CARE:
-Shower daily. Use soap & water.
-No lotions, creams or powders on incision area.
DIET:
-continue a low fat/low cholesterol diet.
-IF you are diabetic, continue carb controlled diet.
CARDIAC REHAB:
-Please make appointment to start in 5-6 weeks with your local hospital program. (See Cardiac Rehabilitation Discharge Booklet).
SPECIALTY INSTRUCTIONS:
-Weigh yourself daily. Call your physician for any weight gain/loss of 3 lbs overnight or 5 lbs in one week.
-REPORT any clicking noise or uneven appearance of your sternum to your surgeon immediately.
-If you smoke, you are instructed to quit. The [place] smoking hotline phone number is [phone]
Referrals:
CT Transitional Care Nurse [Outside] (The Cardiothoracic Transitional Care Nurse will call you to set up a visit in 1-2 days.)
[facility] [Outside] - 10/07/23 1:00 pm
(Cardiac Rehab Orientation appointment and� First Exercise appointment is on Friday10/07/23 at 1pm.
The Cardiac Rehab gym is located on the first floor of the [facility].)
Rico Lopez MD [Family Provider] -
Monica Mcclain PA-C [Specified Professional Personl] - 10/13/23 2:00 pm
Gerardo Oliver MD [Active] - 09/30/23 2:00 pm
Additional Discharge Medication Instructions: Do not restart your amlodipine or losartan until directed by a doctor
Do not resume your nexium until your are complete your pantoprazole
Prescriptions:
New
furosemide 40 mg Tablet
40 mg PO DAILY Qty: 7 0RF
acetaminophen 325 mg Tablet
650 mg PO Q4HPRN PRN (Reason: mild pain,headache,temp >101F ) Qty: 0 0RF
clopidogrel 75 mg Tablet
75 mg PO DAILY Qty: 30 0RF
oxycodone 5 mg Tablet
2.5 mg PO Q4HPRN PRN (Reason: severe pain) Qty: 10 0RF
pantoprazole 40 mg Tablet,Delayed Release (Dr/Ec)
40 mg PO DAILY Qty: 30 0RF
Continued
metformin 500 MG tablet
500 mg PO BID AT 0800,1700
Tasigna 150 mg Capsule
150 mg PO HS
aspirin 81 mg Capsule
81 mg PO HS
Mounjaro 5 mg/0.5 mL Pen Injector
5 mg SC QWEEK
Rx Instructions:
Q Sun
Last dose 08/05/23
atorvastatin 80 mg tablet
80 mg PO DAILY
Changed
metoprolol succinate [Toprol XL] 25 mg Tablet Extended Release 24 Hr
25 mg PO DAILY Qty: 0 0RF
Held
esomeprazole magnesium [Nexium] 40 MG capsule,delayed release(DR/EC)
40 mg PO DAILY
Hold Instructions: Resume on 10/03/23. do not resume until completing your protonix
Discontinued
losartan 50 mg Tablet
50 mg PO DAILY
ibuprofen 400 mg Tablet
400 mg PO Q6H PRN (Reason: pain)
nitroglycerin 0.4 mg tablet, sublingual
0.4 mg sublingual [id number] PRN (Reason: chest pain) Qty: 25 5RF
amlodipine 5 mg tablet
5 mg PO DAILY
Discharge Orders:
Discharge Patient (As Directed); Ordered 09/03/23
Ordered By: Fiath Mora
Discharge Date and Time
Discharge Date/Time: 09/03/23 14:02
Print Language: WOLOF
--- NOTE | 2023-09-03 12:56 | PTCARENOTE ---
Pt showered without issue. Pt awaiting for d/c pickup.
--- NOTE | 2023-09-03 13:58 | PTCARENOTE ---
Pt stable. Discharge instructions reviewed with pt and pt's . Questions addressed. Volunteer to bedside to escort pt out.
== END 2023-09-03 14:02 | disposition home or self-care (01) | DRG 235 ==
LOC: CVICU 05:12
PROVIDERS: Anesthesiology; Clinical Nurse Specialist Acute Care; Physician Assistant Medical; ADMITTING PHYSICIAN Thoracic Surgery (Cardiothoracic Vascular Surgery); FAMILY PHYSICIAN Family Medicine; OTHER PHYSICIAN Internal Medicine Critical Care Medicine
PROC: 021109W Bypass Coronary Artery, Two Arteries from Aorta with Autologous Venous Tissue, Open Approach (ICD-10-PCS; 2023-08-29)
PROC: 06BQ4ZZ Excision of Left Saphenous Vein, Percutaneous Endoscopic Approach (ICD-10-PCS; 2023-08-29)
PROC: 5A1221Z Performance of Cardiac Output, Continuous (ICD-10-PCS; 2023-08-29)
PROC: B24BZZ4 Ultrasonography of Heart with Aorta, Transesophageal (ICD-10-PCS; 2023-08-29)
PROC: 02100ZC Bypass Coronary Artery, One Artery from Thoracic Artery, Open Approach (ICD-10-PCS; 2023-08-29)
PROC: 30233N1 Transfusion of Nonautologous Red Blood Cells into Peripheral Vein, Percutaneous Approach (ICD-10-PCS; 2023-09-02)
DX: I25.10 Atherosclerotic heart disease of native coronary artery without angina pectoris (principal); T81.19XA Other postprocedural shock, initial encounter; C92.10 Chronic myeloid leukemia, BCR/ABL-positive, not having achieved remission; D62 Acute posthemorrhagic anemia; Z94.81 Bone marrow transplant status; J98.11 Atelectasis; E11.9 Type 2 diabetes mellitus without complications; K21.9 Gastro-esophageal reflux disease without esophagitis; E78.5 Hyperlipidemia, unspecified; I10 Essential (primary) hypertension; E66.01 Morbid (severe) obesity due to excess calories; I45.10 Unspecified right bundle-branch block; R00.0 Tachycardia, unspecified; Y83.2 Surgical operation with anastomosis, bypass or graft as the cause of abnormal reaction of the patient, or of later complication, without mention of misadventure at the time of the procedure; Z68.33 Body mass index [BMI] 33.0-33.9, adult; Z79.82 Long term (current) use of aspirin; Z79.84 Long term (current) use of oral hypoglycemic drugs; Z79.899 Other long term (current) drug therapy; Z86.73 Personal history of transient ischemic attack (TIA), and cerebral infarction without residual deficits
CPT/HCPCS: 36415; 71045; 71046; 80048; 80053; 81003; 82248; 82330; 82565; 82805; 82947; 82962; 83036; 83735; 84132; 84302; 84520; 85014; 85018; 85025; 85027; 85049; 85610; 85730; 86850; 86900; 86901; 86920; 87070; 93005; 93312; 93320; 93325; 93880; 94002; 94010; C1713; P9016; P9045; P9047

== ENCOUNTER 2023-09-16 02:25 | Inpatient (IN) | payer BC, SELFPAY ==
[2023-09-15 23:13] VITALS: BP 136/90
[2023-09-15 23:27] VITALS: BMI 33.5
[2023-09-15 23:37] VITALS: BP 133/86
[2023-09-15 23:40] LABS: % Basophils 0.5 % (0-2); % Eosinophils 1.4 % (0-6); % Immature Granulocytes 0.6 % (0-0.5); % Lymphocytes 20.1 % (20.5-51.1); % Monocytes 14.5 % (1.7-9.3); % Neutrophils 62.9 % (42.2-75.2); Absolute Basophils 0.1 10^3/uL (0-0.2); Absolute Eosinophils 0.2 10^3/uL (0-0.7); Absolute Immature Granulocytes 0.1 10^3/uL (0-0.05); Absolute Lymphocytes 3.5 10^3/uL (1.2-3.4); Absolute Monocytes 2.5 10^3/uL (0.1-0.6); Hematocrit 32.6 % (39.0-52.0); Hemoglobin 10.8 g/dL (13.0-18.0); Mean Corp Hgb Conc. 33.1 g/dL (33.0-37.0); Mean Corpuscular Hgb 30.9 pg (27.0-31.0); Mean Corpuscular Volume 93.4 fL (80.0-94.0); Mean Platelet Volume 8.9 fL (7.4-10.4); Nucleated Red Blood Cells % 0 % (-); Platelet Count 787 10^3/uL (130-400); Red Blood Cell Count 3.49 10^6/uL (4.70-6.10); Red Cell Dist. Width 16.6 % (11.5-14.5); White Blood Cell Count 17.5 10^3/uL (4.8-10.8)
--- NOTE | 2023-09-15 23:44 | ED.GENMED ---
History of Present Illness
General
Chief Complaint: Cardiac Symptoms
Source: patient
Exam Limitations: none
Time Seen by Provider: 09/15/23 23:21
Travel History
Have you had any contact with someone who has COVID-19?: No
Do you have any symptoms of coronavirus? Fever > 100 degrees, chills, cough, shortness of breath, sore throat, loss of taste or smell, muscle aches, or headache?: No
History of Present Illness
History of Present Illness:
This is a 62 year old male that comes in with c/o chest pain. States that he had Open heart surgery on August 28. State that today earlier he started with some chest discomfort. States that this has continued to build up tonight. States that he took
his Oxycodone at 8pm, Aspirin and Ambien. States that his BP was elevated to 130-140/90-100 and his heart rate was elevated to 118-122. States that his pain is in the center of his chest and he felt a little lightheaded. States that he has pain with
deep breathing. Denies any fever, chills, SOB, abd pain, nausea vomiting, diarrhea, headache, urinary burning.
Past History
Past History
ED Past Medical History: CAD, Cancer (Chronic myelogenous leukemia, status post bone marrow transplant 1995 ), GERD, HTN, Hypercholesterolemia, NIDDM, Other (Chronic chest wall pain, Headache, Neck pain, Numbness in arms and leg. Herniated disc
neck. Brachial plexopathy, Angina, RBBB, Diverticulitis, Renal calculus, Shingles, ) and Other (Intracranial bleed)
ED Past Surgical History: Cardiac (Cardiac catheterization November 2012, normal coronary arteries, Open heart, ), Orthopedic (Right ankle, Tib/Fb surgery) and Other (Bone marrow transplant 1995 , Hemorrhoidectomy, )
Social History
Tobacco: Non-smoker
Alcohol: None
Drug: None
Personal:
Living: with family
Employment: Employed
Family History
Family History: Negative Early CAD, CAD or Sudden
Review of Systems
Review of Systems
All Other Systems: ROS reviewed and negative except as documented in HPI and ROS
Constitutional: Reports no symptoms; Denies fever or chills
EENT: Reports no symptoms
Respiratory: Reports no symptoms; Denies cough or trouble breathing
Cardiac: Reports chest pain
ABD/GI: Reports no symptoms; Denies abdominal pain, nausea, vomiting or diarrhea
: Reports no symptoms; Denies dysuria, frequency or urgency
Musculoskeletal: Reports no symptoms
Skin: Reports no symptoms
Neurological: Reports other (Lightheaded); Denies dizzy or headache
Psychiatric: Reports no symptoms
Phy Exam
General Physical Exam
General Presentation: mild distress
General age: appears stated age
General Skin: warm and dry
General Habitus: normal
General Mental: alert
General Hydration: appears well hydrated
ENT Exam
ENT Exam: TM's normal, pharynx normal and neck supple
Eye Exam
Eye Exam: EOMI
Cardiovascular Exam
Cardiovascular Exam: no edema, normal peripheral pulses and tachycardia
Pulmonary Exam
Pulmonary Exam: no respiratory distress, no rales, chest non tender, no crackles, no rhonchi, no cough and other (Exp wheezing noted)
Gastrointestinal Exam
Gastrointestinal Exam: normal bowel sounds, non tender, soft, no organomegaly, no pulsatile mass and non distended
Musculoskeletal Exam
Musculoskeletal Exam: full ROM and no edema
Skin Exam
Skin Exam: normal color, warm/dry, no rash, no petechia and other (Sternal incision clean and dry. )
Psychiatric Exam
Psychiatric Exam: normal mood/affect
Course
Orders/Labs/Results
Orders:
Orders
09/15/23 23:17
Electrocardiogram (*1) Urgent
Reason for Study: Chest Pain
EKG- Treatment ONCE
09/15/23 23:25
Electrocardiogram (*1) Urgent
Reason for Study: Other
Other Reason for Exam: Possible Sepsis
Cardiac Monitoring- Treatment ONCE
EKG- Treatment ONCE
IV Insert/Care/Rem.- Treatment PRN
O2 Therapy [RESP] Urgent
Titrate/Wean O2 to maintain O2 sat greater than (%): 93
Special Instructions: TO MAINTAIN CONTINUOUS O2 SATS > OR = 93%
Pulse Ox/cont/shift [RESP] Urgent
Quantity: 1
Special Instructions: CONTINUOUS
09/15/23 23:30
Complete Blood Count/With Diff Urgent
Comprehensive Metabolic Panel Urgent
Lactic Acid Q4H
Comment: ON ICE, CANCEL 2ND ORDER IF FIRST LACTIC ACID LEVEL <2
Blood Culture Q30M
JAMARCUS Source: Blood/Venous
Specimen Description:
Comment: FROM 2 SEPARATE SITES
09/15/23 23:43
Morphine Sulfate 4 mg IV NOW STA
09/15/23 23:44
0.9% Sodium Chloride 500 ml [Nss] 500 ml IV BOLUS
09/15/23 23:47
Troponin I Urgent
09/15/23 23:55
COVID-19 Antigen Urgent
Source: Nasal Swab
09/16/23 00:00
CR Chest - 2 Views Urgent
Reason For Exam: cHEST PAIN
09/16/23 00:19
Blood Culture Q30M
JAMARCUS Source: Blood/Venous
Specimen Description:
Comment: FROM 2 SEPARATE SITES
09/16/23 00:30
Ketorolac [Toradol] 30 mg IV NOW STA
09/16/23 00:39
CT Chest Pe Study Urgent
Comment:
Reason For Exam: Chest pain with deep breathing. Recent Open heart
09/16/23 01:22
INR [Prothrombin Time] Urgent
09/16/23 01:23
EKG- Treatment ONCE
09/16/23 02:50
Electrocardiogram (*1) Urgent
Reason for Study: Chest Pain
Other Reason for Exam: Repeat with Troponin
Troponin I Urgent
09/16/23 03:30
Lactic Acid Q4H
Comment: ON ICE, CANCEL 2ND ORDER IF FIRST LACTIC ACID LEVEL <2
Abnormal Lab Results
09/15/23 09/16/23
23:30 01:22
WBC 17.5 H 10^3/uL
(4.8-10.8)
RBC 3.49 L 10^6/uL
(4.70-6.10)
Hgb 10.8 L g/dL
(13.0-18.0)
Hct 32.6 L %
(39.0-52.0)
RDW 16.6 H %
(11.5-14.5)
Plt Count 787 H 10^3/uL
(130-400)
Abs Immat Gran (auto) 0.1 H 10^3/uL
(0-0.05)
Absolute Neuts (auto) 11.0 H 10^3/uL
(1.4-6.5)
Absolute Lymphs (auto) 3.5 H 10^3/uL
(1.2-3.4)
Absolute Monos (auto) 2.5 H 10^3/uL
(0.1-0.6)
Immature Gran % 0.6 H %
(0-0.5)
Lymphocytes % 20.1 L %
(20.5-51.1)
Monocytes % 14.5 H %
(1.7-9.3)
PT 16.1 H Sec
(11.4-14.6)
Glucose 103 H mg/dl
(70-99)
Lactic Acid 2.2 H mmol/L
(0.7-2.0)
Alkaline Phosphatase 165 H U/L
(38-126)
09/15/23 23:30
09/15/23 23:30
Leukocytosis (patient has CML and is consistent with prior labs), H/H low but improved fro prior labs, Thrombocytosis, Glucose nonfasting. Lactic acid elevated at 2.2, Alk phos elevation. troponin 0.024
Vital Signs
Initial and Last Documented VS:
Initial Vital Signs
Temp Pulse Resp BP Pulse Ox
99.8 F 134 26 136/90 100
09/15/23 23:13 09/15/23 23:13 09/15/23 23:13 09/15/23 23:13 09/15/23 23:13
Last Documented Vital Signs
Temp Pulse Resp BP Pulse Ox
100.8 F H 106 18 116/85 95
09/15/23 23:24 09/16/23 01:30 09/16/23 01:30 09/16/23 01:21 09/16/23 01:30
MDM/Problems Addressed
Differential Diagnosis Includes:
Angina, Coronary syndrome.
MDM/Problems Addressed:
This is a 62 year old male that comes in with c/o chest pain. States that he had open heart on August 28. Today he started with mid chest pain that came on gradually and continued to get worse tonight. States that his BP and heart rate were elevated.
Will get labs, Chest X-ray. COVID, Will then contact cardiology.
Back into see patient and earlier. Explained that he would be admitted. Explained that his first Troponin is normal but with his fever will admit. Will get CT of his chest as patient c/o pain with deep breathing. CT report back and hospitalist
notified.
Chronic conditions affecting care: CAD
Acute Exacerbation and/or Progression of Chronic Illness: CAD
*Radiology
Radiology exam reviewed: radiology read reviewed (CT chest night hawk- Large intermediate density loculated pericardial effusion/hematoma measuring 3.4cm in thickness on the right with mass effect in the right atrium and to a lesser extent the right
ventricle please correlate for clinical tamponade. Suggest cardiology/cardiothoracic surgical), all reviewed NAD by ED Provider (CT cont- evaluation. Small to moderate left pleural effusion. Mild atelectasis. Borderline bronchial wall thickening.
Mild retrosternal hematoma/collection superiorly on the left probably postoperative. Status post CABG. The study is technically diagnostic. No evidence o PE.. Images of the aorta ) and other (CT cont- are without evidence of aneurysm. )
*Pulse Oximetry
Patient hypoxic: no
*EKG
Interpreted by ED Provider?: Yes
Heart Rate: 124
Rate: tachycardiac
Rhythm: sinus tachycardia
[place]: right axis deviation
Interval: normal interval
QRS Pattern: right bundle branch block
Ischemia: T-wave inversion (V1, V2)
*Guest Services Attendant Interpretation
Rate: tachycardiac
Heart Rate: 123
Rhythm: sinus tachycardia
*Critical Care Note
Total Time (30-74mins, 75-104mins- exclusive of procedures): Not Applicable
ED Attending Note
-
Portions of this chart may have been created with voice recognition software.� Occasional wrong word or��sound alike� substitutions may have occurred due to the inherent limitations of voice recognition software.
Discharge Plan
Departure
Patient Disposition: Admit
Date of Disposition: 09/16/23
Time of Disposition: 01:22
Admit to: IMU
Presentation/result/management discussed w/ accepting MD/DO: Hospitalist
Patient with high blood pressure during this ER visit?: No
Condition: Good
Covid-19: Negative COVID-19
Discharge Problem:
Chest pain, Fever, Acute pericardial effusion, Pleural effusion on left
Prescriptions:
No Action
esomeprazole magnesium [Nexium] 40 MG capsule,delayed release(DR/EC)
40 mg PO DAILY
Hold Instructions: Resume on 10/03/23. do not resume until completing your protonix
metformin 500 MG tablet
500 mg PO BID AT 0800,1700
Tasigna 150 mg Capsule
150 mg PO HS
aspirin 81 mg Capsule
81 mg PO HS
Mounjaro 5 mg/0.5 mL Pen Injector
5 mg SC QWEEK
Rx Instructions:
Q Sun
Last dose 08/05/23
atorvastatin 80 mg tablet
80 mg PO DAILY
acetaminophen 325 mg Tablet
650 mg PO Q4HPRN PRN (Reason: mild pain,headache,temp >101F ) Qty: 0 0RF
clopidogrel 75 mg Tablet
75 mg PO DAILY Qty: 30 0RF
oxycodone 5 mg Tablet
2.5 mg PO Q4HPRN PRN (Reason: severe pain) Qty: 10 0RF
pantoprazole 40 mg Tablet,Delayed Release (Dr/Ec)
40 mg PO DAILY Qty: 30 0RF
metoprolol succinate [Toprol XL] 25 mg Tablet Extended Release 24 Hr
25 mg PO DAILY Qty: 0 0RF
Referrals:
Rico Lopez MD [Family Provider] -
Interventions
Interventions:
*Risk Screen - Suicide Last Done: 09/15/23 23:13
*General Assessment Last Done: 09/15/23 23:28
*Neglect/Abuse Screening Last Done: 09/15/23 23:13
ED- Fall Risk Assessment Last Done: 09/15/23 23:29
*ED COVID-19 Vaccine History Last Done: 09/15/23 23:28
ED- Pulmonary Assessment Last Done: 09/16/23 00:30
ED- Cardiac Assessment Last Done: 09/16/23 00:30
Discharge Date and Time
Print Language: GERMAN
[2023-09-15 23:54] LABS: Lactic Acid 2.2 mmol/L (0.7-2.0)
[2023-09-15] MEDS: MORPHINE SULFATE 4 MG IV (23:56)
[2023-09-15] MEDS: NSS 500 IV (23:57)
[2023-09-16] VITALS (16 sets, daily range): BP systolic 109–145; BP diastolic 76–98; BMI 33.6
[2023-09-16 00:11] LABS: ALT (SGPT) 31 U/L (0-50); AST (SGOT) 43 U/L (17-59); Albumin 4.3 g/dl (3.5-5.0); Alkaline Phosphatase 165 U/L (38-126); Blood Urea Nitrogen 17 mg/dl (9-20); Calcium 9.8 mg/dl (8.4-10.2); Carbon Dioxide 24 mmol/L (22-30); Chloride 103 mmol/L (98-107); Estimated Creatinine Clearance 88 ml/min; Glucose 103 mg/dl (70-99); Potassium 4.7 mmol/L (3.5-5.1); Sodium 140 mmol/L (135-145); Total Bilirubin 0.8 mg/dl (0.2-1.3); Total Protein 7.7 g/dl (6.3-8.2); eGFR > 60.00
[2023-09-16 00:22] LABS: Troponin I 0.024 ng/ml
[2023-09-16] MEDS: TORADOL 30 MG IV (00:42)
[2023-09-16 00:47] LABS: COVID-19 Antigen Negative (Negative)
[2023-09-16 01:46] LABS: INR 1.31; PT 16.1 Sec (11.4-14.6)
--- NOTE | 2023-09-16 02:19 | HPS.HSE ---
Family Physician
-
Family Physician: Rico Lopez
Chief Complaint
-
Chest Pain
History of Present Illness
Patient is a 62y M with PMH significant for DM-II, ASCVD and recent CABG who presents to ED complaining of chest pain. Patient underwent CABG x 3 on 08/29/23. He states that he was recovering well following that procedure until earlier today
when he noted substernal chest pain. Patient notes that he has been doing 'more than I should' over the past few days. He has had several very brief episodes of sharp, L scapular pain over the past few days. Today he developed much more severe
central chest pain. Pain is worse with deep breathing or movement. He checked his BP and pulse at home and both were elevated. Patient presented to the ED for further evaluation and treatment. He denies any cough, dyspnea, fevers or chills.
He states that he has had some increased heartburn symptoms over the past few days as well.
Patient was treated with Toradol and IVFs in the ED and notes that he currently feels much improved.
Medical History
Past Medical History
Past Medical History: Reports Other
Additional Past Medical History:
ASCVD
Hypertension
DM-II
CML
Subarachnoid Hemorrhage
GERD
Obesity
Past Surgical History: Reports Other
Additional Past Surgical History:
CABG x 3 (08/29/23)
Percutaneous SAH Repair
Hemorrhoidectomy
Rectal Fistulectomy
Social History
Tobacco: Non-smoker
Alcohol: None
Drug: None
Family History
Family History: Other (Longevity in both parents.)
Allergies / Home Medications
Allergies reflects when Allergies were last updated in [employer].
Home Medications with original date entered in [employer]
Allergy/Medication List:
Allergies
Allergy/AdvReac Type Severity Reaction Status Date / Time
No Known Allergies Allergy Verified 09/15/23 23:16
Home Medications
esomeprazole magnesium 40 mg capsule,delayed release (Nexium) 40 mg PO DAILY Gastrointestinal Issue 12/01/12
metformin 500 mg tablet 500 mg PO BID AT 0800,1700 Diabetes 03/29/20
aspirin 81 mg capsule 81 mg PO HS Blood Clot Prevention/Tx 08/14/23
nilotinib 150 mg capsule (Tasigna) 150 mg PO HS Cancer 08/14/23
tirzepatide 5 mg/0.5 mL subcutaneous pen injector (Mounjaro) 5 mg SC QWEEK Diabetes 08/14/23
atorvastatin 80 mg tablet 80 mg PO DAILY High Cholesterol 08/20/23
acetaminophen 325 mg tablet 650 mg (2 x 325 mg) PO Q4HPRN PRN mild pain,headache,temp >101F #0 tabs 09/03/23
clopidogrel 75 mg tablet 75 mg PO DAILY Blood clot prevention/tx #30 tabs 09/03/23
metoprolol succinate 25 mg tablet,extended release 24 hr (Toprol XL) 25 mg PO DAILY Blood Pressure #0 tabs 09/03/23
oxycodone 5 mg tablet 2.5 mg (1/2 x 5 mg) PO Q4HPRN PRN severe pain #10 tabs 09/03/23
pantoprazole 40 mg tablet,delayed release 40 mg PO DAILY gi prophylaxis while on plavix #30 tabs 09/03/23
Review of Systems
-
History Source: Patient
A 12 point ROS was completed and negative except as noted: Yes
Constitutional: Denies Fever, Fatigue or Chills
EENT: Denies Sore Throat
Respiratory: Denies Cough, Hemoptysis or Trouble Breathing
Cardiac: Reports Chest Pain; Denies Diaphoresis or Palpitations
Abdomen/GI: Reports Other (Heartburn); Denies Abdominal Pain, Nausea, Vomiting or Diarrhea
: Denies Dysuria or Frequency
Musculoskeletal: Denies Edema
Neurological: Denies Dizzy or Headache
Psych: Denies Depression or Anxiety
Physical Exam
Vital Signs
Vital Signs
Temp Pulse Resp BP Pulse Ox
100.8 F H 107 12 129/91 97
09/15/23 23:24 09/16/23 02:00 09/16/23 02:00 09/16/23 02:00 09/16/23 02:00
Physical Exam
General: Other (62y M in no acute distress.)
HEENT: Moist mucous membranes and PERRLA
Respiratory: Clear and Other (Decreased BS at the L base - otherwise clear.); No Wheezes, Rales or Rhonchi
Cardiac: S1/S2 (distant S1 S2.), Regular Rhythm and Other (Midline sternotomy incision healing well. No bleeding / discharge.); No Murmur
GI: Soft, Non Tender, Non Distended and Normal Bowel Sounds
Musculoskeletal: No Clubbing, No Cyanosis and No Edema
Neuro: AO x 3
Laboratory Results
-
09/15/23 23:30
09/15/23 23:30
Laboratory Results
PT 16.1 Sec (11.4-14.6) H 09/16/23 01:22
INR 1.31 09/16/23 01:22
Lactic Acid 2.2 mmol/L (0.7-2.0) H 09/15/23 23:30
Total Bilirubin 0.8 mg/dl (0.2-1.3) 09/15/23 23:30
AST 43 U/L (17-59) 09/15/23 23:30
ALT 31 U/L (0-50) 09/15/23 23:30
Alkaline Phosphatase 165 U/L (38-126) H 09/15/23 23:30
Troponin I 0.024 ng/ml 09/15/23 23:47
Impression/Plan
-
A/P: Patient is a 62y M with PMH significant for ASCVD and recent CABG (08/29/23) who presents to ED complaining of chest pain that started today.
Chest Pain
- Admit for further evaluation and treatment.
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
- CT done in the ED today shows pericardial effusion v hematoma, L pleural effusion. No infiltrate / PE / etc.
- Pain improved significantly after Toradol.
- Continue NSAIDs ATC.
- Check Echo in AM.
- Check ESR / CRP.
- Cardiology / CT Surgery evaluations.
- Follow for clinical improvement.
- Consider addition of colchicine.
- Initial doses of abx given in the ED given low grade fever (100.8) - though this is also likely c/w postpericardiotomy syndrome.
- Follow fever curve. Consider fluid aspiration to rule out infected hematoma, etc if needed.
ASCVD
s/p CABG 08/28
- Continue current CV med regimen except as noted.
- Plavix held acutely in the event that patient requires any intervention, etc.
DM-II
- Stable. Hold metformin and Mounjaro.
- Follow glucose and cover with SSI as needed.
- A1C was 5.8% last month.
CML
- WBC elevated at 17.5 - appears fairly c/w recent baseline.
- Plts also elevated.
- Continue Tasigna from home.
- Follow for changes in cell counts.
GERD
- Stable. Continue daily PPI.
DVT Prophylaxis: SCDs
Code Status: Full
[2023-09-16] MEDS: MAXIPIME 2000 MG IV (03:14)
[2023-09-16] MEDS: STERILE WATER FOR INJECTION 10 ML IV (03:15)
[2023-09-16] MEDS: VANCOCIN 200 IV (03:29)
[2023-09-16 03:44] LABS: Lactic Acid 1.5 mmol/L (0.7-2.0)
[2023-09-16 03:55] LABS: Troponin I 0.034 ng/ml
[2023-09-16] MEDS: DILAUDID 0.5 MG IV ×2 (04:46→14:45)
[2023-09-16] MEDS: FLUSH (NSS) 1 FLUSH IV ×2 (04:48→18:33)
[2023-09-16 05:17] LABS: Erythrocyte Sed Rate 72 mm/hour (0-20)
--- NOTE | 2023-09-16 06:14 | PTCARENOTE ---
Late note:Received from the ED at 0420. Sternotomy incision, 4 previous chest tube sites and upper left medial thigh incision all well approximated and healing/scabbed. Coccyx area is red, encouraged patient to alternate lying on his side but he
said he hasn't been able to at home d/t chest discomfort and pain. Air cushion under buttock. Dilaudid effective for chest discomfort. SR-ST on the monitor, 98-104.
--- NOTE | 2023-09-16 08:00 | PTCARENOTE ---
Assumed care of pt from prev nsg shift, AAOx3 w/c/o CP & SOB. Pt's CP is L-sided to mid sternum & pt reports feels worse w/inspiration. Pt rates his pain as a 5/10. Scheduled IV Toradol administered as ordered. Pt's VS stable this AM w/HR in the
80's90's. Pt's BP stable at 126/86. Pt NPO since arrival, awaiting ECHO this AM & poss pericardiocentesis. Plan of care ongoing.
--- NOTE | 2023-09-16 08:06 | CON.CAR ---
Addendum entered and electronically signed by Preet Keller MD 09/16/23 12:15:
I saw and examined the patient.
The HABILITATION TRAINING SPECIALIST or PA's note was reviewed and I agree with the note.
Comment: General: Well developed, well nourished in NAD.
Neck: Supple, no JVD, HJR, carotids +2 B/L, no bruits bilaterally.
Heart: Non displaced PMI, RRR, no murmurs, No S3, S4, no rubs.
Lungs: Scattered rhonchi
Sternotomy well-healed
Extremities: No clubbing, cyanosis or edema bilaterally.
Neuro: Grossly nonfocal, awake, alert and oriented x3.
Griffin has a history of CML status post bone marrow transplant, hypertension, lipidemia, diabetes. He underwent three-vessel CABG on 08/29/2023. He received 1 unit packed red blood cell due to postop anemia and was discharged on aspirin and
Plavix. He presents with chest discomfort worse with taking a deep breath as well as sharp pain in his back. Chest x-ray revealed small left pleural effusion. CAT scan of the chest revealed evidence of pericardial hematoma and pleural effusion.
Echocardiogram with moderate to large pericardial effusion with evidence of tamponade with RV compression.
Will treat with pericardiocentesis to be done later today. Will hold Plavix. Will consider treatment for post pericardotomy syndrome with colchicine. Also may need hematologic evaluation given markedly elevated platelets. Discussed with CT
surgery, primary service, interventional cardiology.
Original Note:
Consultation
Consultation Request
Date/Time Consultation Performed: 09/16/23
Requesting Provider: Dr. Chávez
Performing Provider: Kathie Ridley PA-C for Dr. Keller
Reason for Consultation: CP
Medical History
-
Chief Complaint: CP, fever
History of Present Illness:
Patient is a 62-year-old male with past medical history of CML s/p BM transplant 1995 on tasigna, HTN, HLD, DM2 who underwent CABG times 3 (GRACY-LAD, GSV-D1, GSV-OM) on 08/29/23. He received 1 unit packed red blood cells 09/02/2023 due to postop
anemia and was discharged 09/03/2023 on aspirin and Plavix. He reports he felt well until this past Friday when he developed central substernal chest discomfort, dull and achy in nature, gradually building over the last several days. He reports
worsening with taking a deep breath in. He also reports some sharp pain in his back. Last evening he had a fever and came into the emergency room for evaluation. Chest x-ray with small left pleural effusion. Chest CT with evidence of pericardial
hematoma. Noted to be tachycardic. Cardiology consulted for evaluation. Hemoglobin stable at 10.8, platelet count highest it has ever been per patient at 787.
PMH:
CAD
s/p CABG x 3 (GRACY-LAD, GSV-D1, GSV-OM) 08/29/2023HTN
HLD
DM2
RBBB
h/o SAH
h/o CML w/ bone marrow transplant 1995
Past Medical History
Past Medical History: Other (in HPI)
Social History
Tobacco: Non-Smoker
Alcohol: None
Personal:
Living: With Family
Employment: Employed
Allergies / Home Medications
Allergy/AdvReac Type Severity Reaction Status Date / Time
No Known Allergies Allergy Verified 09/15/23 23:16
�Medication �Instructions �Recorded �Confirmed �Type
esomeprazole magnesium 40 mg 40 mg PO DAILY Gastrointestinal 12/01/12 09/15/23 History
capsule,delayed release (Nexium) Issue
metformin 500 mg tablet 500 mg PO BID AT 0800,1700 Diabetes 03/29/20 09/15/23 History
aspirin 81 mg capsule 81 mg PO HS Blood Clot 08/14/23 09/15/23 History
Prevention/Tx
nilotinib 150 mg capsule (Tasigna) 150 mg PO HS Cancer 08/14/23 09/15/23 History
tirzepatide 5 mg/0.5 mL 5 mg SC QWEEK Diabetes 08/14/23 09/15/23 History
subcutaneous pen injector
(Ángela)
atorvastatin 80 mg tablet 80 mg PO DAILY High Cholesterol 08/20/23 09/15/23 History
acetaminophen 325 mg tablet 650 mg (2 x 325 mg) PO Q4HPRN PRN 09/03/23 09/15/23 Rx
mild pain,headache,temp >101F #0
tabs
clopidogrel 75 mg tablet 75 mg PO DAILY Blood clot 09/03/23 09/15/23 Rx
prevention/tx #30 tabs
metoprolol succinate 25 mg 25 mg PO DAILY Blood Pressure #0 09/03/23 09/15/23 Rx
tablet,extended release 24 hr tabs
(Toprol XL)
oxycodone 5 mg tablet 2.5 mg (1/2 x 5 mg) PO Q4HPRN PRN 09/03/23 09/15/23 Rx
severe pain #10 tabs
pantoprazole 40 mg tablet,delayed 40 mg PO DAILY gi prophylaxis 09/03/23 09/15/23 Rx
release while on plavix #30 tabs
Review of Systems
-
History Source: Patient
All other systems: Negative unless noted
Physical Exam
Vital Signs
Temp Pulse Resp BP Pulse Ox
98.5 F 94 18 116/83 100
09/16/23 04:29 09/16/23 06:15 09/16/23 04:29 09/16/23 04:29 09/16/23 05:28
Lab Results
09/15/23 23:30
09/15/23 23:30
Troponin I Cancelled 09/16/23 16:20
Physical Exam
General: No Apparent Distress and Comfortable
HEENT: Normocephalic, Anicteric and Moist Mucous Membranes
Respiratory: Clear and Non Labored Respirations
Cardiac: S1/S2 and Regular Rhythm
GI: Soft, Non Tender, Non Distended and Normal Bowel Sounds
Musculoskeletal: No Clubbing, No Cyanosis and No Edema
Skin: Warm and Dry
Neuro: AO x 3
Impression / Plan
-
Primary Superintendent [employer]: Dr. Lowery
CT: Dr. Oliver
Assessment:
Presentation with CP
Fever
L pleural effusion
Pericardial hematoma by chest CT
Thrombocytosis
Elevated lactic acid
Elevated CRP
CAD
s/p CABG x 3 (GRACY-LAD, GSV-D1, GSV-OM) 08/29/2023
HTN
HLD
DM2
RBBB
h/o SAH
h/o CML w/ bone marrow transplant 1995
ECHO 08/19/23: EF 60 to 65%, no significant valvular disease
Plan:
-Patient presents to [facility] with complaints of chest pain and fever in setting of recent CABG times 3 on 08/29/23
-Chest x-ray with evidence of left pleural effusion, small and chest CT with evidence of pericardial hematoma
-Receiving IV Toradol
-last echo from 08/18 with results as above. For repeat echocardiogram this morning. Determination of need for further intervention/medication pending results
-Hemoglobin stable at 10.8. With thrombocytosis, which patient states is worst he has ever seen. Repeat CBC this morning. Consider hematology evaluation
-Holding Plavix. Continue aspirin
-Check proBNP
-BPs stable. continue toprol. follow HRs
-Rule out infectious process as with elevated lactic acid, tachycardia, and fever.
-Trops detectable but within normal range, continue to trend
-d/w CT surgery PA
Data Reviewed
-
EKG: Tracing Personally Visualized and interpreted
Radiology: Report Reviewed by me
CT Scan: Report Reviewed by me
Medical Tests (Nuc Med, Echo etc): Report Reviewed by me
Labs: Labs Reviewed by me
Old Records: Reviewed
--- NOTE | 2023-09-16 08:08 | CONSULT.CT ---
Consultation
-
Date/Time Consultation Requested: 09/16/23
Date/Time Consultation Performed: 09/16/23
Requesting Provider: Dr. Chávez
Performing Provider: Marilu Fernandes PA-C for Dr. Gerardo Olievr
Reason for Consultation: chest pain s/p CABG
Patient History
Physicians
Family Physician: Rico Lopez
Outpatient Clinical Practitioner: Beverley
Inpatient Clinical Practitioner: SARA
History of Present Illness
Pt is a 62y/oM well known to our service, who underwent CABG x3 (HELM-LAD, SVG-OM1, SVG-D1), [facility], by Dr. Oliver on 08/29/23. He had an uneventful postoperative course and went home on POD#5 (09/03/23). Pt reports doing very well so far postop, and
has been gradually increasing his activity. He reports feeling tired and a little unwell 2 days ago (Friday) with vague complaints, but no chest pain. Pt states on Friday he was feeling a bit worse with some chest pressure/substernal pain as well as
radiating pain to his left scapula. He checked his vitals at home and noticed he was hypertensive and tachycardic with HR up to 120s so he came to the ED. EKG sinus tach with incomplete RBBB (chronic), trops unremarkable so far (0.024, 0.034). CT PE
protocol last evening demonstrates no PE, [id number] inferior pericardial hematoma and a small left pleural effusion. Pt did have a temp of 100.8 last evening and WBC elevated at 17.5 (17.8 @ d/c 09/02), blood cultures were sent from ED & he received one
time doses of cefepime and vanco early this AM. Sed rate, CRP and lactic (2.2) are elevated as well.
Past Medical History
Multivessel coronary artery disease s/p CABG x3 08/29/23 (Dr. Oliver)
Hypertension
Hyperlipidemia
Pvu-vvsrctk-nhmjyxrme diabetes mellitus
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
Morbid obesity
History of subarachnoid hemorrhage
chronic thrombocytosis
chronic RBBB
Past Surgical History
CABG x3 (HELM-LAD, SVG-OM1, SVG-D1), [facility] 08/29/23
Family History
Mother: N/A
Father: N/A
Social History
Alcohol: None
Drug: None
Tobacco: Non-Smoker
Allergies
Allergy/AdvReac Type Severity Reaction Status Date / Time
No Known Allergies Allergy Verified 09/15/23 23:16
Home Medications
�Medication �Instructions �Recorded �Confirmed �Type
esomeprazole magnesium 40 mg 40 mg PO DAILY Gastrointestinal 12/01/12 09/15/23 History
capsule,delayed release (Nexium) Issue
metformin 500 mg tablet 500 mg PO BID AT 0800,1700 Diabetes 03/29/20 09/15/23 History
aspirin 81 mg capsule 81 mg PO HS Blood Clot 08/14/23 09/15/23 History
Prevention/Tx
nilotinib 150 mg capsule (Tasigna) 150 mg PO HS Cancer 08/14/23 09/15/23 History
tirzepatide 5 mg/0.5 mL 5 mg SC QWEEK Diabetes 08/14/23 09/15/23 History
subcutaneous pen injector
(Mounjaro)
atorvastatin 80 mg tablet 80 mg PO DAILY High Cholesterol 08/20/23 09/15/23 History
acetaminophen 325 mg tablet 650 mg (2 x 325 mg) PO Q4HPRN PRN 09/03/23 09/15/23 Rx
mild pain,headache,temp >101F #0
tabs
clopidogrel 75 mg tablet 75 mg PO DAILY Blood clot 09/03/23 09/15/23 Rx
prevention/tx #30 tabs
metoprolol succinate 25 mg 25 mg PO DAILY Blood Pressure #0 09/03/23 09/15/23 Rx
tablet,extended release 24 hr tabs
(Toprol XL)
oxycodone 5 mg tablet 2.5 mg (1/2 x 5 mg) PO Q4HPRN PRN 09/03/23 09/15/23 Rx
severe pain #10 tabs
pantoprazole 40 mg tablet,delayed 40 mg PO DAILY gi prophylaxis 09/03/23 09/15/23 Rx
release while on plavix #30 tabs
Review of Systems
-
History Source: Patient
General: Reports Fever and Fatigue
HEENT: Reports No Symptoms
Respiratory: Reports No Symptoms
Cardiac: Reports Chest Pain
Abdomen/GI: Reports No Symptoms
: Reports No Symptoms
Musculoskeletal: Reports No Symptoms
Skin: Reports No Symptoms
Neurological: Reports No Symptoms
Vascular: Reports No Symptoms
Physical Exam
Vital Signs
Temp 98.5 F 09/16/23 04:29
Temp route: Oral 09/16/23 04:29
Pulse 94 09/16/23 06:15
Rhythm: Normal sinus rhythm 09/16/23 05:28
With- Sinus tachycardia 09/16/23 05:28
Resp Rate 18 09/16/23 04:29
Blood pressure 116/83 09/16/23 04:29
Blood pressure extremity used: Right upper arm 09/16/23 04:29
Position: Lying 09/16/23 04:29
MAP (cuff-Ivory Monitor) 95 09/16/23 04:29
SaO2 100 09/16/23 05:28
Oxygen Mode of Delivery Room air 09/16/23 05:28
Acceptable pain level during hospitalization? 0 09/15/23 23:13
Can the patient verbally communicate their pain? Yes 09/16/23 05:46
Pain scale rating: Asleep 09/16/23 05:46
Actual Weight 100.2 kg 09/16/23 04:20
Body Mass Index (BMI) 33.6 09/16/23 04:20
Labs
09/15/23 23:30
09/15/23 23:30
PT 16.1 Sec (11.4-14.6) H 09/16/23 01:22
Troponin I Cancelled 09/16/23 16:20
Exam
General: Well Developed, Well Nourished and No Apparent Distress
HEENT: Normocephalic and Anicteric
Neck: Negative Carotid Bruit
Respiratory: Clear; Negative Wheezes, Crackles or Rhonchi
Cardiac: Regular Rhythm and Other (MSI healing very well, no erythema or drainage; chest tube sites dry/scabbed no drainage or erythema); Negative Murmur or Rub
GI: Soft, Non Tender and Non Distended
Rectal: Deferred by Provider
Skin: Warm and Dry
Neuro: Nonfocal/Grossly Intact
Extremities: Other (LLE EVH incision site healing well, mild bruising present medial/distal thigh, no erythema or drainage); Negative Lower Level Edema
Lymph: No Lymphadenopathy
Psych: Calm
Assessment / Plan
-
chest pain s/p CABG x3 08/29/23
suspect not related to ACS, but continue to trend trops--cardiology following as well
?post pericardiotomy syndrome--continue toradol/pain medicine as needed; no rub or significant pericardial effusion; pericardial hematoma likely 2/2 surgery and relatively small
follow up echo today to further delineate presence of actual pericardial effusion/hemodynamic effect of hematoma
leukocytosis/thrombocytosis/elevated sed rate & CRP with low grade temp last night--continue to monitor for fevers, follow up cultures to rule out infectious etiology; added UA C&S
will discuss all of above with Dr. Oliver.
Data Reviewed
-
EKG: Tracing Personally Visualized and interpreted and Report Reviewed by me
Radiology: Image Personally Visualized and interpreted and Report Reviewed by me
CT Scan: Image Personally Visualized and interpreted and Report Reviewed by me
Labs: Labs Reviewed by me
[2023-09-16 08:28] LABS: Glucose - Point of Care 98 mg/dl (70-99)
[2023-09-16] MEDS: TOPROL XL 25 MG PO (08:30)
[2023-09-16] MEDS: PROTONIX 40 MG PO (08:30)
[2023-09-16] MEDS: LIPITOR 80 MG PO (08:30)
[2023-09-16] MEDS: TORADOL 15 MG IV ×3 (08:31→23:08)
[2023-09-16] MEDS: FLUSH (NSS) 2 FLUSH IV ×2 (08:32→14:46)
--- NOTE | 2023-09-16 09:46 | W.PN.HOSP.TC ---
Today's Communication/Plan
-
see bold
Assessment / Plan
Assessment / Plan
62y M with PMH significant for ASCVD and recent CABG (08/29/23) who presents to ED complaining of chest pain that started today.
Moderate�large pericardial effusion
Tamponade
-Appreciate cardiology input, hold Plavix, will need urgent pericardiocentesis
Possible post pericardiotomy syndrome
Chest pain
-CT done in the ED shows pericardial effusion v hematoma, L pleural effusion. No infiltrate / PE / etc.
-CT surg following
-May possibly need colchicine
-Continue IV Toradol for now
ASCVD
s/p CABG 08/28
- Continue current CV med regimen except as noted.
- Plavix held acutely in the event that patient requires any intervention, etc.
Thrombocytosis
-Likely reactive, monitor
DM-II
- Stable. Hold metformin and Mounjaro.
- Follow glucose and cover with SSI as needed.
- A1C was 5.8% last month.
CML
- WBC elevated at 17.5 - appears fairly c/w recent baseline.
- Plts also elevated.
- Continue Tasigna from home.
- Follow for changes in cell counts.
GERD
- Stable. Continue daily PPI.
DVT Prophylaxis: SCDs
Code Status: Full
Physical Exam
General: No acute distress
HEENT: Normocephalic, Atraumatic, EOMI, MMM
Respiratory: Clear to Auscultation bilaterally
Cardiac: Normal S1/S2, Regular Rate and Rhythm
GI: Soft, Nontender, Nondistended, Normal Bowel Sounds
Extremities: No Clubbing, Cyanosis, or Edema
Neuro: Nonfocal/Grossly Intact
Psych: Calm, Cooperative
Derm: No Visible lesions
Anticipated Discharge: > 48 hours
Subjective/Interval History
-
Date of Service: September 16, 2023
Patient denies chest pain, denies shortness of breath. No lightheadedness, no dizziness. No fever, no vomiting.
Objective Data
-
Labs:
Laboratory Results
09/15/23 09/16/23 09/16/23
23:30 01:22 09:06
WBC 17.5 H Pending
Hgb 10.8 L Pending
Hct 32.6 L Pending
Plt Count 787 H Pending
PT 16.1 H
INR 1.31
Sodium 140
Potassium 4.7
Chloride 103
Carbon Dioxide 24
BUN 17
Creatinine 1.0
Glucose 103 H
Calcium 9.8
Total Bilirubin 0.8
AST 43
ALT 31
Alkaline Phosphatase 165 H
Vital Signs:
Vital Signs
Temp Pulse Resp BP Pulse Ox
98.7 F 99 20 126/86 99
09/16/23 08:25 09/16/23 08:25 09/16/23 08:25 09/16/23 08:25 09/16/23 08:25
[2023-09-16 10:10] LABS: Hematocrit 29.4 % (39.0-52.0); Hemoglobin 9.5 g/dL (13.0-18.0); Mean Corp Hgb Conc. 32.3 g/dL (33.0-37.0); Mean Corpuscular Hgb 31.5 pg (27.0-31.0); Mean Corpuscular Volume 97.4 fL (80.0-94.0); Mean Platelet Volume 9.1 fL (7.4-10.4); Platelet Count 665 10^3/uL (130-400); Red Blood Cell Count 3.02 10^6/uL (4.70-6.10); Red Cell Dist. Width 16.3 % (11.5-14.5); White Blood Cell Count 15.2 10^3/uL (4.8-10.8)
[2023-09-16 10:15] LABS: NT-proBNP 1330 pg/ml
--- NOTE | 2023-09-16 11:26 | CM ---
Chart reviewed. Patient is independent of ADLS, lives in a [facility] with his , 2 STH, 1st floor set up, 2 LESTER, 0 DME. Patient going for a pericardiocentesis today. Plans is for the patient to return home. CM to follow
[2023-09-16 12:46] LABS: Glucose - Point of Care 81 mg/dl (70-99)
[2023-09-16] MEDS: NSS 1000 IV (14:45)
[2023-09-16 15:09] LABS: Urine Albumin Negative (Neg - Trace); Urine Bilirubin Negative (Negative); Urine Character Clear (Clear); Urine Color Yellow; Urine Glucose Negative (Negative); Urine Ketone Negative (Negative); Urine Leukocyte Negative (Negative); Urine Nitrite Negative (Negative); Urine Occult Blood Negative (Negative); Urine Specific Gravity 1.015 (<1.030); Urine Urobilinogen Negative (Neg - 1+)
--- NOTE | 2023-09-16 15:34 | PTCARENOTE ---
NSS IVF administered as ordered for pt. IV Dilaudid given for 7/10 L sided chest pain. Report given to Anat in the labor delivery rn & pt taken in bed over to the labor delivery rn for pericardiocentesis. Plan of care ongoing.
--- NOTE | 2023-09-16 16:38 | ITS.CL.PN ---
[facility] - Procedure Note
Procedure
Procedure Note:
PERICARDIOCENTESIS REPORT
Date of Procedure: 09/16/2023
Referring: Preet Keller MD
PROCEDURE SUMMARY:
Successful pericardiocentesis via subxiphoid approach with removal of 250 mL bloody pericardial fluid
DESCRIPTION OF PROCEDURE: Patient was admitted with shortness of breath and a moderate-sized pericardial effusion with clear compression of the right ventricle. He underwent open heart surgery with CABG on 08/28 and has been treated with aspirin and
Plavix. He was brought to the [facility] for pericardiocentesis. A standard 7 cm micropuncture needle would not reach the pericardial space. A 9 cm micropuncture needle did successfully reach the pericardial space and fluoroscopy demonstrated the
wire to be safely in the pericardium and not in a cardiac chamber. A 6 Qatari sheath was placed and a pigtail catheter advanced through the sheath into the pericardial space. Proper positioning was verified with agitated saline injection and
echocardiography. The initial intrapericardial pressure was 28 mmHg consistent with tamponade. Following fluid removal, the intrapericardial pressure fell to 10 mmHg. Patient remained hemodynamically stable for the duration of the procedure.
Fluid was sent for the usual suspects and hemoglobin in the [facility] was 5.9 consistent with recent blood. The drain was secured in place to suction and the patient transferred back to the IVU. He will be monitored for fluid drainage and probably
have the drain removed during the day tomorrow.
Radiation (mGy): 15.1
DAP (cm2.Gy): 1.7
Fluoroscopy time: 0.2 minutes
CONCLUSIONS: Successful pericardiocentesis with removal of 250 mL of bloody pericardial fluid
Copy to: Rodrigo Keller MD, Rico Lopez MD
Merrick Salvador MD, [facility], [facility]
[2023-09-16 17:03] LABS: Body Fluid Glucose < 30 mg/dl; Body Fluid LDH 695 U/L; Body Fluid Protein 5.7 g/dl
[2023-09-16 17:12] LABS: Glucose - Point of Care 90 mg/dl (70-99)
[2023-09-16 17:34] LABS: Body Fluid WBC 3718 /CUMM
[2023-09-16 17:35] LABS: Body Fluid Hematocrit 24.2 %
[2023-09-16 18:42] LABS: Body Fluid Granulocytes 48 %; Body Fluid Lymphocytes 47 %; Body Fluid Macrophages 4 %; Body Fluid Other Cells 1 %
[2023-09-16 18:43] LABS: Body Fluid Second Tech EYM
--- NOTE | 2023-09-16 19:18 | PTCARENOTE ---
Rec'd report from laboratory associate; pt w/new mid/upper abd/chest pericardial drain in place w/sm amt of sanguineous drainage present. Pt reports improved pain level of 3/10 & feels less SOB post procedure. Pt w/call mcclain within reach & plan of care ongoing.
[2023-09-16 21:52] LABS: Glucose - Point of Care 101 mg/dl (70-99)
[2023-09-16] MEDS: ASPIR LOW (ENTERIC COATED) 81 MG PO (23:11)
--- NOTE | 2023-09-17 03:42 | DOWNTIME ---
There was a [employer] Client Service Control Operator Downtime on 09/17/2023 from 0100 to 09/17/2023 at 0337. Downtime documentation of patient's care, including medication administrations, has been reconciled in the electronic record per guidelines. Refer to the
patient's paper chart under the miscellaneous tab to see printed paper medication records and downtime forms.
[2023-09-17 04:23] VITALS: BP 119/86
--- NOTE | 2023-09-17 04:57 | PTCARENOTE ---
Pt.'s pericardial drain has very small amount of SS drainage this morning, 15 ml total. Toradol effective at relieving center chest discomfort. VSS, NSR, pulse ox 95% on RA. Pt. slept most of the night.
[2023-09-17 06:11] LABS: Blood Urea Nitrogen 18 mg/dl (9-20); Calcium 9.2 mg/dl (8.4-10.2); Carbon Dioxide 23 mmol/L (22-30); Chloride 106 mmol/L (98-107); Estimated Creatinine Clearance 88 ml/min; Glucose 106 mg/dl (70-99); Potassium 4.7 mmol/L (3.5-5.1); Sodium 137 mmol/L (135-145); eGFR > 60.00
[2023-09-17 06:37] VITALS: BP 127/85
--- NOTE | 2023-09-17 06:41 | W.PN.UPDATE ---
Update Note
Progress Note Update
patient here on readmission for fatigue/malaise & tachycardia noted at home s/p CABG x3 (HELM-LAD, SVG-OM1, SVG-D1), [facility], by Dr. Oliver on 08/29/23
-noted to have pericardial effusion which was tapped yesterday via pericardiocentesis. 250 ml successfully drained
-a drain was left which drained 15mL since placement overnight
-hemodynamically stable
-appreciate all input
Vital Signs / Labs
-
Vital Signs and Labs:
Temp Pulse Resp BP Pulse Ox
98.7 F 106 20 119/86 95
09/17/23 04:23 09/17/23 04:23 09/17/23 04:23 09/17/23 04:23 09/17/23 04:23
09/16/23 10:00
09/17/23 05:04
09/16/23 09/16/23 09/17/23
10:00 21:50 05:04
WBC 15.2 H
RBC 3.02 L
Hgb 9.5 L
Hct 29.4 L
MCV 97.4 H
MCH 31.5 H
MCHC 32.3 L
RDW 16.3 H
Plt Count 665 H
Glucose 106 H
POC Glucose 101 H
[2023-09-17 07:20] VITALS: BMI 33.1
--- NOTE | 2023-09-17 07:23 | PTCARENOTE ---
Assumed care of patient from assembler 1st shift RN. AAO x 3, flat affect. Ambulating at benitez in room with steady gait. ST on monitor 110. Room air 95%, denies cough or sputum. Pericardial drain with minimal drainage. Xyphoid dressing intact. Pulses
palpable. Trace pedal edema appreciated.
[2023-09-17] MEDS: LIPITOR 80 MG PO (07:29)
[2023-09-17] MEDS: PROTONIX 40 MG PO (07:30)
[2023-09-17] MEDS: TORADOL 15 MG IV (07:30)
[2023-09-17] MEDS: TOPROL XL 25 MG PO (07:30)
[2023-09-17 08:14] LABS: Glucose - Point of Care 110 mg/dl (70-99)
--- NOTE | 2023-09-17 09:10 | PTCARENOTE ---
Pericardial drain removed by . Pt tolerated w/o issue.
--- NOTE | 2023-09-17 09:19 | W.PN.HOSP.TC ---
Today's Communication/Plan
-
see bold
Assessment / Plan
Assessment / Plan
62y M with PMH significant for ASCVD and recent CABG (08/29/23) who presents to ED complaining of chest pain that started today.
Moderate�large pericardial effusion
Tamponade
-Appreciate cardiology input, status post urgent pericardiocentesis on 09/15, draining 250 cc of hemorrhagic fluid
-Check serial echocardiograms as per cardiology. Discontinue Plavix per cardiology
Possible post pericardiotomy syndrome
Chest pain
-CT done in the ED shows pericardial effusion v hematoma, L pleural effusion. No infiltrate / PE / etc.
-CT surg following
-Cardiology recommends colchicine. IV Toradol discontinued.
ASCVD
s/p CABG 08/28
- Continue current CV med regimen except as noted.
- Discontinue Plavix
Acute blood loss anemia secondary to hemorrhagic pericardial effusion
-Trend hemoglobin
Thrombocytosis
-Likely reactive, monitor
DM-II
- Stable. Hold metformin and Mounjaro.
- Follow glucose and cover with SSI as needed.
- A1C was 5.8% last month.
CML
- WBC elevated at 17.5 - appears fairly c/w recent baseline.
- Plts also elevated.
- Continue Tasigna from home.
- Follow for changes in cell counts.
GERD
- Stable. Continue daily PPI.
DVT Prophylaxis: SCDs
Code Status: Full
Total time spent to see the patient on the floor, examine the patient, review data and lab results, discuss treatment plan with patient, nursing staff around 35 minutes.
Physical Exam
General: No acute distress
HEENT: Normocephalic, Atraumatic, EOMI, MMM
Respiratory: Clear to Auscultation bilaterally
Cardiac: Normal S1/S2, Regular Rate and Rhythm
GI: Soft, Nontender, Nondistended, Normal Bowel Sounds
Extremities: No Clubbing, Cyanosis, or Edema
Neuro: Nonfocal/Grossly Intact
Psych: Calm, Cooperative
Derm: No Visible lesions
Anticipated Discharge: Within 24 hours
Subjective/Interval History
-
Date of Service: September 17, 2023
Chest pressure resolved after his pericardiocentesis yesterday. No fever, no vomiting.
Objective Data
-
Labs:
Laboratory Results
09/17/23
05:04
Sodium 137
Potassium 4.7
Chloride 106
Carbon Dioxide 23
BUN 18
Creatinine 1.0
Glucose 106 H
Calcium 9.2
Vital Signs:
Vital Signs
Temp Pulse Resp BP Pulse Ox
98.3 F 100 18 127/85 95
09/17/23 07:00 09/17/23 08:00 09/17/23 07:00 09/17/23 07:30 09/17/23 07:21
I&O
09/16/23 09/17/23 09/18/23
06:59 06:59 06:59
Intake Total 1020 / 1020
Output Total 615 / 615
Balance 405 / 405
--- NOTE | 2023-09-17 11:32 | CM ---
Chart reviewed. Patient is independent of ADLS, lives with his in a [facility], 2 STH, 1st floor set up, 2 LESTER, 0 DME. Plan is for the patient to return home. CM to follow
[2023-09-17 11:49] VITALS: BP 118/82
[2023-09-17] MEDS: COLCHICINE 0.299999999999999989 MG PO (11:52)
--- NOTE | 2023-09-17 12:21 | W.PN.CARDCBS ---
Addendum entered and electronically signed by Preet Keller MD 09/17/23 13:57:
I saw and examined the patient.
The EXTRACTIONS TECHNOLOGIST or PA's note was reviewed and I agree with the note.
Comment: General: Well developed, well nourished in NAD.
Neck: Supple, no JVD, HJR, carotids +2 B/L, no bruits bilaterally.
Heart: Non displaced PMI, RRR, no murmurs, No S3, S4, no rubs.
Lungs: Scattered rhonchi
Extremities: No clubbing, cyanosis or edema bilaterally.
Neuro: Grossly nonfocal, awake, alert and oriented x3.
pericardial drainage was minimal. Pericardial drain was removed using suture removal kit. Patient tolerated procedure well. Will check repeat echocardiogram on 09/17 and likely could be discharged. Will await fluid analysis but likely due to
prior CT surgery. Discontinue Plavix. Start colchicine and discontinue nonsteroidals
Original Note:
Today's Communication / Plan
-
colchicine
repeat echo in AM
await fluid analysis
Impression / Plan
-
[facility] Sales Consultant: Dr. Lowery
CT: Dr. Oliver
Assessment:
Presentation with CP
Fever
L pleural effusion
Large pericardial effusion with evidence of tamponade s/p pericardiocentesis 09/16/23
Thrombocytosis
Elevated lactic acid
Elevated CRP
CAD
s/p CABG x 3 (GRACY-LAD, GSV-D1, GSV-OM) 08/29/2023
HTN
HLD
DM2
RBBB
h/o SAH
h/o CML w/ bone marrow transplant 1995
ECHO 08/19/23: EF 60 to 65%, no significant valvular disease
ECHO 09/16/23: EF 55 to 60%, large pericardial effusion with evidence of hemodynamic compromise on the right ventricle measuring 1.8 cm around the lateral wall and 3.3 cm of the right ventricle, LV collapse from pericardial effusion
Plan:
-Patient presents to [facility] with complaints of chest pain and fever in setting of recent CABG times 3 on 08/29/23
-Chest x-ray with evidence of left pleural effusion, small and chest CT with evidence of pericardial hematoma
-echo 09/15 with large pericardial effusion with hemodynamic compromise. s/p pericardial effusion 09/15 for 250cc bloody fluid
-drain without significant output overnight so drain was pulled 09/16 AM
-await fluid analysis
-for repeat echo in AM
-hgb 9.5, follow
-currently on IV toradol, consider stopping
-started colchicine, but dose reduced due to interaction with tasigna after discussion with pharmacy, so 0.3mg daily
-platelet count trending down
-Plavix stopped. Continue aspirin
-BPs stable. continue toprol. follow HRs
-Trops detectable but within normal range, continue to trend
-d/w nursing
Progress Note - Health And Wellness Sales Consultant
Subjective
Date of Service: September 17, 2023
reports some occasional twinges of pain L chest. no SOB
Objective
Labs:
09/16/23 10:00
09/17/23 05:04
Labs
Hgb 9.5 g/dL (13.0-18.0) L 09/16/23 10:00
Hct 29.4 % (39.0-52.0) L 09/16/23 10:00
Plt Count 665 10^3/uL (130-400) H 09/16/23 10:00
PT 16.1 Sec (11.4-14.6) H 09/16/23 01:22
INR 1.31 09/16/23 01:22
Sodium 137 mmol/L (135-145) 09/17/23 05:04
Potassium 4.7 mmol/L (3.5-5.1) 09/17/23 05:04
BUN 18 mg/dl (9-20) 09/17/23 05:04
Creatinine 1.0 mg/dL (0.7-1.3) 09/17/23 05:04
Glucose 106 mg/dl (70-99) H 09/17/23 05:04
Troponins
09/15/23 09/16/23 09/16/23
23:47 03:05 04:20
Troponin I 0.024 0.034 D Cancelled
09/16/23 09/16/23 09/16/23
10:00 10:20 15:00
Troponin I 0.030 Cancelled Cancelled
09/16/23
16:20
Troponin I Cancelled
Vital Signs and I&O:
Vital Signs
Temp Pulse Resp BP Pulse Ox
98.4 F 97 18 118/82 97
09/17/23 11:49 09/17/23 11:49 09/17/23 11:49 09/17/23 11:49 09/17/23 11:49
Vital Signs
Temp Pulse Resp BP Pulse Ox
98.4 F 97 18 118/82 97
09/17/23 11:49 09/17/23 11:49 09/17/23 11:49 09/17/23 11:49 09/17/23 11:49
Intake & Output
09/15/23 09/16/23 09/17/23 09/18/23
07:59 07:59 07:59 07:59
Intake Total 1020 / 1020
Output Total 615 / 615
Balance 405 / 405
Physical Exam
Physical Exam
GEN: No distress, awake, alert, oriented x3
HEENT: supple, anicteric, mmm, eomi
LUNGS: CTA B/L, no wheezes/rales
CV: Reg, S1/S2, no murmur
ABD: soft, BS+, NT/ND
EXT: No cyanosis, clubbing, edema
NEURO: Gross non-focal
SKIN: Warm, pink, dry. No rash
[2023-09-17 12:23] LABS: Glucose - Point of Care 139 mg/dl (70-99)
--- NOTE | 2023-09-17 12:51 | PTCARENOTE ---
Pt reported fleeting mild pain in his left breast that 'comes and goes'. SINA Patel notified, pt declined tylenol. Pt up walking in halls independently.
[2023-09-17 15:46] VITALS: BP 117/83
[2023-09-17 20:43] VITALS: BP 138/88
[2023-09-17] MEDS: ASPIR LOW (ENTERIC COATED) 81 MG PO (21:43)
[2023-09-17 22:08] VITALS: BP 146/92
[2023-09-17 22:08] LABS: Glucose - Point of Care 123 mg/dl (70-99)
--- NOTE | 2023-09-17 22:16 | PTCARENOTE ---
Assumed care of pt ~ 2200. pt resting in bed. Pt AA0x3 but flat. subxiphoid process dressing CDI. pt without complaints ST on the monitor.
[2023-09-18 00:32] VITALS: BP 131/92
[2023-09-18] MEDS: DILAUDID 0.5 MG IV (00:35)
--- NOTE | 2023-09-18 00:56 | PTCARENOTE ---
pt rang stating that he developed 8/10 sternal cp about 20 mins prior after sneezing 2x and not protecting his chest. BP 131s/92 HR 103. EKG read ST and BBB. PRN Dilaudid provided as well as an ice pack and a new heart pillow- as well as reeducation
on sternal precautions. ANTOINETTE Hamilton made aware and a CXR ordered placed
[2023-09-18] MEDS: TYLENOL 650 MG PO (01:14)
[2023-09-18 02:21] VITALS: BP 130/91
[2023-09-18 03:10] LABS: Hematocrit 31.8 % (39.0-52.0); Hemoglobin 10.3 g/dL (13.0-18.0); Mean Corp Hgb Conc. 32.4 g/dL (33.0-37.0); Mean Corpuscular Hgb 30.9 pg (27.0-31.0); Mean Corpuscular Volume 95.5 fL (80.0-94.0); Mean Platelet Volume 9.1 fL (7.4-10.4); Platelet Count 643 10^3/uL (130-400); Red Blood Cell Count 3.33 10^6/uL (4.70-6.10); Red Cell Dist. Width 15.9 % (11.5-14.5); White Blood Cell Count 13.3 10^3/uL (4.8-10.8)
[2023-09-18 03:38] LABS: Blood Urea Nitrogen 15 mg/dl (9-20); Calcium 9.1 mg/dl (8.4-10.2); Carbon Dioxide 25 mmol/L (22-30); Chloride 108 mmol/L (98-107); Estimated Creatinine Clearance 87 ml/min; Glucose 114 mg/dl (70-99); Magnesium 2.4 mg/dl (1.6-2.3); Potassium 4.5 mmol/L (3.5-5.1); Sodium 140 mmol/L (135-145); eGFR > 60.00
--- NOTE | 2023-09-18 06:14 | PTCARENOTE ---
Pt reported that his pain had dropped down to a 4/10 after then pain meds and ice pack. pt reports this as tolerable
[2023-09-18 07:07] VITALS: BP 126/97
[2023-09-18 07:12] LABS: Glucose - Point of Care 117 mg/dl (70-99)
[2023-09-18] MEDS: PROTONIX 40 MG PO (09:06)
[2023-09-18] MEDS: COLCHICINE 0.299999999999999989 MG PO (09:07)
[2023-09-18] MEDS: TOPROL XL 25 MG PO (09:07)
[2023-09-18] MEDS: LIPITOR 80 MG PO (09:07)
--- NOTE | 2023-09-18 10:28 | W.PN.CARDCBS ---
Addendum entered and electronically signed by Kelsey Spears DO 09/18/23 16:56:
I saw and examined the patient.
The Sales Engagement Executive's note was reviewed and I agree with the note.
Comment: Patient seen and examined sitting out of bed to chair. Overall feeling better with no current chest pain or pressure. He does report rare twinges in his chest and some paresthesias along the skin. He also has some tingling bilateral feet.
GEN: No distress, awake, alert, oriented x3
HEENT: mmm
LUNGS: CTA B/L, no wheezes/rales
CV: Reg, S1/S2, no murmur
ABD: soft, BS+, NT/ND
EXT: No edema
Plan:
-Patient presented to [facility] with complaints of chest pain and fever in setting of recent CABGx 3 on 08/29/23
-echo 09/15 with large pericardial effusion with hemodynamic compromise. s/p pericardial effusion 09/15 for 250cc bloody fluid. drain pulled 09/16.
-he reports an episode of severe chest discomfort last night, which was after sneezing. improved with dilaudid and tylenol.
-underwent repeat echo 09/16 s/p drain pull with smaller pericardial effusion without evidence for tamponade
-await fluid analysis, suspected post surgical
-hgb 10.3. plt count trending down, 643K
-started colchicine, but dose reduced due to interaction with pam after discussion with pharmacy, so 0.3mg daily to continue for 3 months
-Plavix stopped, would not resume on DC. Continue aspirin
-BPs stable. continue toprol. follow HRs
-Trops detectable but within normal range, continue to trend
-repeat echo in 2 weeks as OP arranged
-OP cardiac follow up arranged
-for possible DC later today
Original Note:
Today's Communication / Plan
-
repeat echo with improvement in effusion, no evidence of tamponade
continue colchicine 0.3mg daily for 3 months
continue asa. NO PLAVIX
OP repeat echo and cardiac follow up arranged
Impression / Plan
-
Primary Manager Asset Management: Dr. Lowery
CT: Dr. Oliver
Assessment:
Presentation with CP
Fever
L pleural effusion
Large pericardial effusion with evidence of tamponade s/p pericardiocentesis 09/16/23
Thrombocytosis
Elevated lactic acid
Elevated CRP
CAD
s/p CABG x 3 (GRACY-LAD, GSV-D1, GSV-OM) 08/29/2023
HTN
HLD
DM2
RBBB
h/o SAH
h/o CML w/ bone marrow transplant 1995
ECHO 08/19/23: EF 60 to 65%, no significant valvular disease
ECHO 09/16/23: EF 55 to 60%, large pericardial effusion with evidence of hemodynamic compromise on the right ventricle measuring 1.8 cm around the lateral wall and 3.3 cm of the right ventricle, LV collapse from pericardial effusion
ECHO 09/17/23: Limited echo, moderate pericardial effusion seen measuring 1.6 cm posteriorly and up to 2.2 cm laterally. Respiratory variation of mitral inflow is seen but other evidence of tamponade absent. Compared to prior pericardial effusion
no longer seen along right ventricle and compression of right atrium and right ventricle no longer present
Plan:
-Patient presented to [facility] with complaints of chest pain and fever in setting of recent CABGx 3 on 08/29/23
-echo 09/15 with large pericardial effusion with hemodynamic compromise. s/p pericardial effusion 09/15 for 250cc bloody fluid. drain pulled 09/16.
-he reports an episode of severe chest discomfort last night, which was after sneezing. improved with dilaudid and tylenol. he reports some continued occasional twinges of chest discomfort
-underwent repeat echo 09/16 s/p drain pull with smaller pericardial effusion without evidence for tamponade as noted before
-await fluid analysis, suspected post surgical
-hgb 10.3. plt count trending down, 643K
-started colchicine, but dose reduced due to interaction with tobinisidroantionette after discussion with pharmacy, so 0.3mg daily to continue for 3 months
-Plavix stopped, would not resume on DC. Continue aspirin
-BPs stable. continue toprol. follow HRs
-Trops detectable but within normal range, continue to trend
-repeat echo in 2 weeks as OP arranged
-OP cardiac follow up arranged
-for possible DC later today
-d/w nursing
Progress Note - Manager Asset Management
Subjective
Date of Service: September 18, 2023
reports an episode of severe chest discomfort last night, which was after sneezing. he reports some continued occasional twinges of chest discomfort
Objective
Labs:
09/18/23 02:58
09/18/23 02:58
Labs
Hgb 10.3 g/dL (13.0-18.0) L 09/18/23 02:58
Hct 31.8 % (39.0-52.0) L 09/18/23 02:58
Plt Count 643 10^3/uL (130-400) H 09/18/23 02:58
PT 16.1 Sec (11.4-14.6) H 09/16/23 01:22
INR 1.31 09/16/23 01:22
Sodium 140 mmol/L (135-145) 09/18/23 02:58
Potassium 4.5 mmol/L (3.5-5.1) 09/18/23 02:58
BUN 15 mg/dl (9-20) 09/18/23 02:58
Creatinine 1.0 mg/dL (0.7-1.3) 09/18/23 02:58
Glucose 114 mg/dl (70-99) H 09/18/23 02:58
Troponins
09/15/23 09/16/23 09/16/23
23:47 03:05 04:20
Troponin I 0.024 0.034 D Cancelled
09/16/23 09/16/23 09/16/23
10:00 10:20 15:00
Troponin I 0.030 Cancelled Cancelled
09/16/23
16:20
Troponin I Cancelled
Vital Signs and I&O:
Vital Signs
Temp Pulse Resp BP Pulse Ox
98.1 F 88 16 126/97 98
09/18/23 07:08 09/18/23 09:07 09/18/23 07:08 09/18/23 09:07 09/18/23 08:00
Vital Signs
Temp Pulse Resp BP Pulse Ox
98.1 F 88 16 126/97 98
09/18/23 07:08 09/18/23 09:07 09/18/23 07:08 09/18/23 09:07 09/18/23 08:00
Intake & Output
09/16/23 09/17/23 09/18/23 09/19/23
07:59 07:59 07:59 07:59
Intake Total 1020 / 1020 400 / 400
Output Total 615 / 615
Balance 405 / 405 400 / 400
Physical Exam
Physical Exam
GEN: No distress, awake, alert, oriented x3
HEENT: supple, anicteric, mmm, eomi
LUNGS: CTA B/L, no wheezes/rales
CV: Reg, S1/S2, no murmur
ABD: soft, BS+, NT/ND
EXT: No cyanosis, clubbing, edema
NEURO: Gross non-focal
SKIN: Warm, pink, dry. No rash
--- NOTE | 2023-09-18 10:38 | CM ---
Chart reviewed. Patient is independent of ADLS, lives with [facility] in a [facility], [address], 1st floor setup, 2 LESTER, 0 DME. Patient currently with no discharge needs. Plan is for the patient to return home. CM to follow
[2023-09-18 11:15] VITALS: BP 119/84
[2023-09-18 11:39] LABS: Glucose - Point of Care 98 mg/dl (70-99)
[2023-09-18] MEDS: SENOKOT 17.1999999999999993 MG PO (12:15)
[2023-09-18] MEDS: MIRALAX 17 GRAMS PO (13:45)
[2023-09-18] MEDS: DULCOLAX 10 MG PO (14:07)
[2023-09-18 14:25] VITALS: BP 103/76
--- NOTE | 2023-09-18 14:33 | W.PN.HOSP.TC ---
Today's Communication/Plan
-
Cleared by cardiology for discharge today
Assessment / Plan
Assessment / Plan
62y M with PMH significant for ASCVD and recent CABG (08/29/23) who presents to ED complaining of chest pain that started today.
Moderate�large pericardial effusion
Tamponade
-Appreciate cardiology input, status post urgent pericardiocentesis on 09/15, draining 250 cc of hemorrhagic fluid
-Discontinue Plavix per cardiology
-Medically stable and cleared by cardiology for discharge today, follow-up with cardiology and CT surgery in the office
Possible post pericardiotomy syndrome
Chest pain
-CT done in the ED shows pericardial effusion v hematoma, L pleural effusion. No infiltrate / PE / etc.
-CT surg following
-Cardiology recommends colchicine 0.3 mg daily for 90 days. IV Toradol discontinued.
ASCVD
s/p CABG 08/28
- Continue current CV med regimen except as noted.
- Discontinue Plavix
Severe constipation
-Treat with aggressive bowel regimen in the hospital, discharged on MiraLAX twice a day
Acute blood loss anemia secondary to hemorrhagic pericardial effusion
-Trend hemoglobin
Thrombocytosis
-Likely reactive, monitor
DM-II
- Follow glucose and cover with SSI as needed.
- A1C was 5.8% last month. Resume metformin and Mounjaro upon discharge
CML
- WBC elevated appears fairly c/w recent baseline.
- Continue Tasigna from home.
- Follow for changes in cell counts.
GERD
- Stable. Continue daily PPI.
DVT Prophylaxis: SCDs
Code Status: Full
Physical Exam
General: No acute distress
HEENT: Normocephalic, Atraumatic, EOMI, MMM
Respiratory: Clear to Auscultation bilaterally
Cardiac: Normal S1/S2, Regular Rate and Rhythm
GI: Soft, Nontender, Nondistended, Normal Bowel Sounds
Extremities: No Clubbing, Cyanosis, or Edema
Neuro: Nonfocal/Grossly Intact
Psych: Calm, Cooperative
Derm: No Visible lesions
Anticipated Discharge: Today
Subjective/Interval History
-
Date of Service: September 18, 2023
Patient reports some left-sided chest numbness with intermittent sharp pains. No fever, no vomiting. He is severely constipated, last bowel movement was 5 days ago.
Objective Data
-
Labs:
Laboratory Results
09/18/23
02:58
WBC 13.3 H
Hgb 10.3 L
Hct 31.8 L
Plt Count 643 H
Sodium 140
Potassium 4.5
Chloride 108 H
Carbon Dioxide 25
BUN 15
Creatinine 1.0
Glucose 114 H
Calcium 9.1
Vital Signs:
Vital Signs
Temp Pulse Resp BP Pulse Ox
98.2 F 104 18 103/76 95
09/18/23 14:26 09/18/23 14:25 09/18/23 14:26 09/18/23 14:25 09/18/23 11:17
I&O
09/17/23 09/18/23 09/19/23
06:59 06:59 06:59
Intake Total 1020 / 1020 400 / 400
Output Total 615 / 615
Balance 405 / 405 400 / 400
--- NOTE | 2023-09-18 15:21 | PTCARENOTE ---
Pt seen by Drs. Gama and Tory. Pt had BM after several laxatives. Telemetry and IV device removed. Discharge instructions reviewed with pt an dhis regarding wound care, sternal precautions, pain management, medications and their possible
side effects, reporting cares and concerns and follow up appt's. Very good understanding verbalized. Pt escorted out via wheelchair and discharged to home.
--- NOTE | 2023-09-18 15:34 | W.DCSUMMARY ---
Discharge Summary
Discharge Data
Date of Admission: 09/16/23
Date of Discharge: 09/18/23
-
Pending Results: No
Hospital Course
Discharge diagnosis:
Large pericardial effusion with evidence of tamponade
Post pericardiotomy syndrome
Left pleural effusion
Thrombocytosis
Recent coronary artery bypass graft surgery on 08/29/2023
Type 2 diabetes
Consults: Cardiology, CT surgery
Procedures:
09/16/2023 Successful pericardiocentesis via subxiphoid approach with removal of 250 mL bloody pericardial fluid
Chest CT:
1. Suspected pericardial hematoma, measuring 7.5 x 5.4 x 3.9 cm, with mild mass effect on the right atrium and right ventricle.
2. Small left pleural effusion, with associated left basilar subsegmental atelectasis.
3. No evidence of pulmonary embolism or thoracic aortic dissection.
Echo:
Limited echo performed to reassess pericardial effusion
Moderate pericardial effusion is seen measuring 1.6 cm posteriorly and up to
2.2 cm laterally. Respiratory variation of the mitral inflow is seen, but other
supportive evidence of tamponade physiology is absent.
Compared to prior study dated 09/16/23 which was directly reviewed, pericardial
effusion is no longer seen along the right ventricle and compression of the
right atrium and right ventricle is no longer present.
Hospital course:
62-year-old male with a past medical history coronary artery disease status post CABG on 08/29/2023, CML, and type 2 diabetes presented with chest pain. Patient was found to have a large pericardial effusion with evidence of tamponade and post
pericardiotomy syndrome. Patient was seen in conjunction with cardiology and CT surgery. He underwent successful pericardiocentesis on 09/16/2023, draining 250 cc of bloody pericardial fluid.
For his post pericardiotomy syndrome, he was initially treated with IV Toradol. He was then switched to colchicine 0.3 mg daily. Cardiology recommends colchicine 0.3 mg daily for 90 days. Cardiology also recommends discontinuing his Plavix.
Patient also had severe constipation. He was treated with an aggressive bowel regimen. He will be discharged on MiraLAX twice a day.
Patient is medically stable and cleared by cardiology for discharge. He has a repeat echocardiogram scheduled for 09/30/2023. He needs to follow-up with his primary care doctor in 1 week, and cardiology as well as CT surgery as scheduled.
Disposition: Home self-care
Discharge planning: Required 34 minutes
Discharge Plan
-
Patient Disposition: Home (Routine Discharge)
Discharge Diagnosis/Procedures: Post pericardiotomy syndrome, pericardial effusion with tamponade, recent coronary artery bypass graft surgery, type 2 diabetes, constipation
Condition: Fair
Diet: Low Fat, Low Cholesterol and Diabetic, Carb Controlled
Activity: As tolerated
Driving Restrictions: As prior to admission
Activity Restrictions/Additional Instructions:
You have a follow up echocardiogram appointment at -cardiac services 09/30/23 @10:30AM. Please call [phone] with questions.
STOP plavix.
Follow-up with your primary care doctor in 1 week, cardiology and CT surgery as scheduled.
Referrals:
Rico Lopez MD [Family Provider] - in one week
Monica Mcclain PA-C [Specified Professional Personl] - 10/13/23 2:20 pm (You have a cardiology follow-up appointment at the [place] office with Dr. Lowery's physician executive assistant to general counsel, Monica. Please call with questions)
Gerardo Oliver MD [Active] - 09/30/23 2:00 pm
Prescriptions:
New
colchicine 0.6 mg tablet
0.3 mg PO DAILY 90 Days Qty: 45 0RF
polyethylene glycol 3350 17 gram/dose powder
17 g PO BID Qty: 510 0RF
Rx Instructions:
Hold for loose stools.
Continued
esomeprazole magnesium [Nexium] 40 MG capsule,delayed release(DR/EC)
40 mg PO DAILY
Hold Instructions: Resume on 10/03/23. do not resume until completing your protonix
metformin 500 MG tablet
500 mg PO BID AT 0800,1700
Tasigna 150 mg Capsule
150 mg PO HS
aspirin 81 mg Capsule
81 mg PO HS
Mounjaro 5 mg/0.5 mL Pen Injector
5 mg SC QWEEK
Rx Instructions:
Q Sun
Last dose 08/05/23
atorvastatin 80 mg tablet
80 mg PO DAILY
acetaminophen 325 mg Tablet
650 mg PO Q4HPRN PRN (Reason: mild pain,headache,temp >101F ) Qty: 0 0RF
oxycodone 5 mg Tablet
2.5 mg PO Q4HPRN PRN (Reason: severe pain) Qty: 10 0RF
pantoprazole 40 mg Tablet,Delayed Release (Dr/Ec)
40 mg PO DAILY Qty: 30 0RF
metoprolol succinate [Toprol XL] 25 mg Tablet Extended Release 24 Hr
25 mg PO DAILY Qty: 0 0RF
Discontinued
clopidogrel 75 mg Tablet
75 mg PO DAILY Qty: 30 0RF
Discharge Orders:
Discharge Patient (As Directed); Ordered 09/18/23
Ordered By: Devan Gama
Care Plan Goals
Care Plan Goals:
Problem: Readiness for enhanced knowledge related to diagnosis and treatment plan
Goal: Understand your diagnosis and treatment plan needs, including medications if applicable.
Instructions: Know your diagnosis, underlying causes and treatment plan options, including medications if applicable. Consult with your health care team to learn about your diagnosis and treatment plan, including medications if applicable.
Discharge Date and Time
Discharge Date/Time: 09/18/23 15:24
Print Language: MALTESE
== END 2023-09-18 15:24 | disposition home or self-care (01) | DRG 315 ==
LOC: IVU 02:25
PROVIDERS: Clinical Nurse Specialist Family Health; Internal Medicine Cardiovascular Disease; Nurse Practitioner Gerontology; Physician Assistant; Physician Assistant Medical; ADMITTING PHYSICIAN Hospitalist; ATTENDING PHYSICIAN Family Medicine; EMERGENCY PHYSICIAN Emergency Medicine; FAMILY PHYSICIAN Family Medicine; OTHER PHYSICIAN Internal Medicine Cardiovascular Disease; OTHER PHYSICIAN Thoracic Surgery (Cardiothoracic Vascular Surgery)
PROC: 0W9D30Z Drainage of Pericardial Cavity with Drainage Device, Percutaneous Approach (ICD-10-PCS; 2023-09-16)
DX: I31.39 Other pericardial effusion (noninflammatory) (principal); C92.10 Chronic myeloid leukemia, BCR/ABL-positive, not having achieved remission; D62 Acute posthemorrhagic anemia; D75.839 Thrombocytosis, unspecified; E11.9 Type 2 diabetes mellitus without complications; K21.9 Gastro-esophageal reflux disease without esophagitis; I97.0 Postcardiotomy syndrome; Z11.52 Encounter for screening for COVID-19
CPT/HCPCS: 88305; 93308; 33016; 71045; 71046; 71275; 80048; 80053; 81003; 82945; 82962; 83605; 83615; 83735; 83880; 84157; 84484; 85014; 85025; 85027; 85610; 85652; 86140; 87015; 87040; 87070; 87102; 87116; 87205; 87206; 87811; 88112; 89051; 93005; 93321; 93325; 96361; 96374; 96375; 99285; C1894; Q9967

== ENCOUNTER → 2023-09-30 10:24 | Outpatient (REF) | payer BC, SELFPAY | LOC: RCS 10:24 | PROVIDERS: ATTENDING PHYSICIAN Nuclear Medicine Nuclear Cardiology; FAMILY PHYSICIAN Family Medicine | DX: I31.39 Other pericardial effusion (noninflammatory) (principal) | CPT/HCPCS: 93308; 93321; 93325 ==

== ENCOUNTER 2023-10-18 17:11 | Emergency (ER) | payer BC, SELFPAY ==
[2023-10-18] VITALS (7 sets, daily range): BP systolic 131–162; BP diastolic 87–103; BMI 32.9
[2023-10-18 17:31] LABS: % Basophils 0.5 % (0-2); % Eosinophils 2.7 % (0-6); % Immature Granulocytes 0.4 % (0-0.5); % Lymphocytes 32.2 % (20.5-51.1); % Monocytes 15.1 % (1.7-9.3); % Neutrophils 49.1 % (42.2-75.2); Absolute Basophils 0.1 10^3/uL (0-0.2); Absolute Eosinophils 0.3 10^3/uL (0-0.7); Absolute Immature Granulocytes 0.1 10^3/uL (0-0.05); Absolute Lymphocytes 3.9 10^3/uL (1.2-3.4); Absolute Monocytes 1.8 10^3/uL (0.1-0.6); Absolute Neutrophils 5.9 10^3/uL (1.4-6.5); Hematocrit 38.1 % (39.0-52.0); Hemoglobin 12.7 g/dL (13.0-18.0); Mean Corp Hgb Conc. 33.3 g/dL (33.0-37.0); Mean Corpuscular Hgb 30.8 pg (27.0-31.0); Mean Corpuscular Volume 92.3 fL (80.0-94.0); Mean Platelet Volume 8.9 fL (7.4-10.4); Nucleated Red Blood Cells % 0 % (-); Platelet Count 464 10^3/uL (130-400); Red Blood Cell Count 4.13 10^6/uL (4.70-6.10); Red Cell Dist. Width 15.9 % (11.5-14.5); White Blood Cell Count 12.1 10^3/uL (4.8-10.8)
[2023-10-18 17:54] LABS: Blood Urea Nitrogen 16 mg/dl (9-20); Calcium 9.8 mg/dl (8.4-10.2); Carbon Dioxide 26 mmol/L (22-30); Chloride 105 mmol/L (98-107); Estimated Creatinine Clearance 79 ml/min; Glucose 86 mg/dl (70-99); Sodium 140 mmol/L (135-145); eGFR > 60.00
[2023-10-18] MEDS: DILAUDID 1 MG IV (18:35)
[2023-10-18 18:36] LABS: Troponin I < 0.012 ng/ml
[2023-10-18 18:43] LABS: ALT (SGPT) 18 U/L (0-50); AST (SGOT) 35 U/L (17-59); Albumin 4.4 g/dl (3.5-5.0); Alkaline Phosphatase 89 U/L (38-126); Blood Urea Nitrogen 16 mg/dl (9-20); Calcium 9.4 mg/dl (8.4-10.2); Carbon Dioxide 25 mmol/L (22-30); Chloride 105 mmol/L (98-107); Estimated Creatinine Clearance 79 ml/min; Glucose 80 mg/dl (70-99); Potassium 5.2 mmol/L (3.5-5.1); Sodium 138 mmol/L (135-145); Total Bilirubin 0.6 mg/dl (0.2-1.3); eGFR > 60.00
--- NOTE | 2023-10-18 20:39 | ED.GENMED ---
History of Present Illness
General
Chief Complaint: Chest Pain
Source: patient, records and spouse
Exam Limitations: none
Time Seen by Provider: 10/18/23 18:14
Nursing documentation reviewed up to this point in time: agreed with
History of Present Illness
History of Present Illness:
62-year-old male with a past medical history as documented notable for CAD status post CABG recently who presents to the emergency room for evaluation of chest pain. Patient had CABG with Dr. Oliver on 08/29/2023; postop course was complicated by
pericardial effusion requiring readmission and ultimately pericardiocentesis on 09/16/2023. He was discharged 09/18/2023 and he says that he had been doing quite well since discharge. He says that he has been using Tylenol and oxycodone for pain
control. He returns today to the emergency room because he has been having increased chest pain for the past 4 days. Of note before this most recent bout of chest pain started he does admit that he returned to some more intense activities
including doing some lifting and pushing his father around in a wheelchair. He reports pain in the substernal region radiating around the left side of his chest. It seems to be somewhat worse with movement. No clear relieving factors noted. He
says he did notice some tingling in the left arm as well. He denies any significant shortness of breath. He denies any syncope. He denies any GI issues. Denies any swelling or pain in the legs.
Past History
Past History
ED Past Medical History: CAD, Cancer (Chronic myelogenous leukemia, status post bone marrow transplant 1995 ), GERD, HTN, Hypercholesterolemia, NIDDM, Other (Chronic chest wall pain, Headache, Neck pain, Numbness in arms and leg. Herniated disc
neck. Brachial plexopathy, Angina, RBBB, Diverticulitis, Renal calculus, Shingles, ) and Other (Intracranial bleed)
ED Past Surgical History: Cardiac (Cardiac catheterization November 2012, normal coronary arteries, Open heart, ), Orthopedic (Right ankle, Tib/Fb surgery) and Other (Bone marrow transplant 1995 , Hemorrhoidectomy, )
Social History
Tobacco: Non-smoker
Alcohol: None
Drug: None
Personal:
Living: with family
Employment: Employed
Family History
Family History: Negative Early CAD, CAD or Sudden
Review of Systems
Review of Systems
All Other Systems: ROS reviewed and negative except as documented in HPI and ROS
Constitutional: Denies fever
Respiratory: Denies cough or trouble breathing
Cardiac: Reports chest pain; Denies syncope
ABD/GI: Denies abdominal pain, nausea or vomiting
: Denies flank pain
Musculoskeletal: Denies edema, neck pain or back pain
Neurological: Denies dizzy or headache
Phy Exam
Physical Exam
Physical Exam:
General: Awake, alert, oriented x3; no acute distress
Head: Normocephalic, atraumatic
Eyes: Conjunctiva normal, EOMI
Throat: Airway intact, handling secretions
Neck: Trachea midline, supple without meningismus
Lungs: Clear to auscultation bilaterally, no wheezing, rales, rhonchi
Heart: Regular rate and rhythm, no murmurs, gallops, or rubs; midline sternal scar well-healed; he does have some tenderness along the sternum and the left lateral ribs
Abd: Soft, non distended, nontender
Neuro: Cranial nerves grossly intact, speech fluid
Skin: no rash
Extremities: No edema in extremities, equal pulses in all extremities
Scores
Heart Failure Risk
Heart Failure Risk Score: Not Applicable
Heart Score for Chest Pain Patients
STEMI patient?: No
History: Slightly or Non-Suspicious
ECG: Normal
Age: >45 - <65 years
Risk Factors: >/= 3 Risk Factors or History of CAD
Troponin: </= Normal Limit
Heart Score for Chest Pain Patients: 3
Heart Score Risk: 2.5% MACE over next 6 weeks
Withdrawal Assessment of Alcohol
Withdrawal Assessment Completed?: Not applicable
Course
Orders/Labs/Results
Orders:
Orders
10/18/23 17:17
Electrocardiogram (*1) Urgent
Reason for Study: Chest Pain
EKG- Treatment ONCE
10/18/23 17:24
Basic Metabolic Panel Urgent
Complete Blood Count/With Diff Urgent
Prothrombin Time Urgent
10/18/23 18:05
Comprehensive Metabolic Panel Urgent
Troponin I Urgent
10/18/23 18:27
HYDROmorphone [Dilaudid] 1 mg IV NOW STA
CR Chest Portable - 1 View Urgent
Comment:
Reason For Exam: cp
Reason Study Needs to be Portable: Unable to Transport
10/18/23 19:02
CT Chest Angio W/wo Iv Contras Urgent
Comment:
Reason For Exam: severe CP s/p CABG and pericardiocentesis
10/18/23 21:02
Troponin I Urgent
Abnormal Lab Results
10/18/23 10/18/23
17:24 18:05
WBC 12.1 H 10^3/uL
(4.8-10.8)
RBC 4.13 L 10^6/uL
(4.70-6.10)
Hgb 12.7 L g/dL
(13.0-18.0)
Hct 38.1 L %
(39.0-52.0)
RDW 15.9 H %
(11.5-14.5)
Plt Count 464 H 10^3/uL
(130-400)
Abs Immat Gran (auto) 0.1 H 10^3/uL
(0-0.05)
Absolute Lymphs (auto) 3.9 H 10^3/uL
(1.2-3.4)
Absolute Monos (auto) 1.8 H 10^3/uL
(0.1-0.6)
Monocytes % 15.1 H %
(1.7-9.3)
PT 15.0 H Sec
(11.4-14.6)
Potassium 5.2 H mmol/L
(3.5-5.1)
10/18/23 17:24
10/18/23 18:05
Vital Signs
Initial and Last Documented VS:
Initial Vital Signs
Temp Pulse Resp BP Pulse Ox
36.7 C 91 18 162/103 99
10/18/23 17:13 10/18/23 17:13 10/18/23 17:13 10/18/23 17:13 10/18/23 17:13
Last Documented Vital Signs
Temp Pulse Resp BP Pulse Ox
36.7 C 69 12 146/88 98
10/18/23 17:13 10/18/23 22:00 10/18/23 22:00 10/18/23 22:00 10/18/23 17:40
MDM/Problems Addressed
Differential Diagnosis Includes:
Costochondritis/rib pain, pericarditis, pericardial effusion, ACS, aortic dissection, PE, pneumothorax, pneumonia
MDM/Problems Addressed:
62-year-old male presents for evaluation of chest pain; had recent CABG complicated by postoperative pericardial effusion. His symptoms today started after he increased his activity level and was doing some lifting and pushing activities.
Hypertensive in triage normalized by my assessment, rest of vitals normal. EKG appears unchanged from prior. Exam as above. Notably has some reproducible tenderness. Will check labs including a CBC and a CMP; will check serial troponins. Will
check chest x-ray to start, low threshold for CTA of the chest. Will monitor closely reassess after the above.
Labs reviewed: CBC shows marginal leukocytosis to 12.1 unclear clinical significance no signs or symptoms of infection. He has marginal anemia. CMP no clinically significant abnormalities. Initial troponin undetectable. Chest x-ray no acute
disease will send for a CT angio of the chest. Case discussed with cardiothoracic surgery�they suspect it could be pericarditis or chest wall pain agreed with CT chest.
CTA chest negative for any acute pathology. Second troponin undetectable. We did treat patient symptomatically here and had significant improvement. Vital signs have been stable. Appears very well. Based on clinical picture I do suspect is
likely chest wall pain although pericarditis also consideration. He is already on colchicine. Will provide a few extra tabs of oxycodone to help better control his pain at home. Discussed results with CT surgery they will follow-up in the office.
I did offer patient admission for observation but he feels better prefers discharge. Spoke about return precautions all questions answered.
Chronic conditions affecting care:
CAD and recent CABG.
Acute Exacerbation and/or Progression of Chronic Illness:
Acutely hypertensive resolved without intervention continue to monitor but no additional antihypertensives indicated at present
Acute Exacerbation and/or Progression of Chronic Illness: HTN
*Radiology
Radiology exam reviewed: preliminary read by ED provider and radiology read reviewed
*Pulse Oximetry
Patient hypoxic: no
*EKG
Interpreted by ED Provider?: Yes
Heart Rate: 82
Rate: normal
Rhythm: sinus
Tillman: normal axis
Interval: normal interval
QRS Pattern: right bundle branch block
Ischemia: no ischemia
*Critical Care Note
Total Time (30-74mins, 75-104mins- exclusive of procedures): Not Applicable
Data Reviewed
Review of Other/Old Records Reveals: Labs, Records, Operative Reports and Discharge Summary
Source: patient, records and family
Patient Management
Discussion with other providers: Tobacco Drier Operator (Discussed with cardiothoracic surgery)
Escalation/DeEscalation of care consider admission/obs:
Offered admission for observation but patient prefers discharge will follow-up as an outpatient�using shared decision making discharged with return precautions and outpatient follow-up
ED Attending Note
-
Portions of this chart may have been created with voice recognition software.� Occasional wrong word or��sound alike� substitutions may have occurred due to the inherent limitations of voice recognition software.
Discharge Plan
Departure
Patient Disposition: Home (Routine Discharge)
Date of Disposition: 10/18/23
Time of Disposition: 22:15
Patient with high blood pressure during this ER visit?: Yes
Discharge Problem:
Chest pain
Instructions: Chest Pain DCA Follow Up
Prescriptions:
New
oxycodone 5 mg tablet
5 mg PO TID PRN (Reason: Pain) Qty: 14 0RF
No Action
esomeprazole magnesium [Nexium] 40 MG capsule,delayed release(DR/EC)
40 mg PO DAILY
metformin 500 MG tablet
500 mg PO BID AT 0800,1700
Tasigna 150 mg Capsule
150 mg PO HS
aspirin 81 mg Capsule
81 mg PO HS
Mounjaro 5 mg/0.5 mL Pen Injector
5 mg SC QWEEK
Rx Instructions:
Q Sun
Last dose 08/05/23
atorvastatin 80 mg tablet
80 mg PO DAILY
acetaminophen 325 mg Tablet
650 mg PO Q4HPRN PRN (Reason: mild pain,headache,temp >101F ) Qty: 0 0RF
oxycodone 5 mg Tablet
2.5 mg PO Q4HPRN PRN (Reason: severe pain) Qty: 10 0RF
pantoprazole 40 mg Tablet,Delayed Release (Dr/Ec)
40 mg PO DAILY Qty: 30 0RF
metoprolol succinate [Toprol XL] 25 mg Tablet Extended Release 24 Hr
25 mg PO DAILY Qty: 0 0RF
colchicine 0.6 mg tablet
0.3 mg PO DAILY 90 Days Qty: 45 0RF
polyethylene glycol 3350 17 gram/dose powder
17 g PO BID Qty: 510 0RF
Rx Instructions:
Hold for loose stools.
Referrals:
Rico Lopez MD [Family Provider] -
Gerardo Oliver MD [Active] - Call in 1-3 days for appt
Activity Restrictions/Additional Instructions:
Thank you for visiting the Emergency Department at [facility].
1. Please schedule a follow up appointment as directed. Call first thing tomorrow morning to make an appointment.
2. If indicated, please take your medications as instructed and indicated on discharge paperwork.
3. If any of your symptoms do not improve, or persist, or become more severe within 6-12 hours, please return to the emergency department for further care.
4. Please return to the emergency department if you develop a headache, neck pain/stiffness, fever greater than 100.4F, chest pain, shortness of breath, persistent nausea, vomiting, slurred speech, difficulty walking, numbness/tingling, weakness,
signs of infection or any other symptoms that are worrisome to you.
Please call [phone] if you have any questions.
Interventions
Interventions:
*Risk Screen - Suicide Last Done: 10/18/23 17:13
*General Assessment Last Done: 10/18/23 17:13
*Neglect/Abuse Screening Last Done: 10/18/23 17:13
ED- Fall Risk Assessment Last Done: 10/18/23 17:32
*ED COVID-19 Vaccine History Last Done: 10/18/23 17:32
*Nursing Disposition Last Done: 10/18/23 22:26
ED- Cardiac Assessment Last Done: 10/18/23 17:32
Discharge Date and Time
Discharge Date/Time: 10/18/23 22:31
Print Language: TELUGU
[2023-10-18 21:31] LABS: Troponin I < 0.012 ng/ml
== END 2023-10-18 22:31 | disposition home or self-care (01) ==
LOC: EMR 17:11
PROVIDERS: EMERGENCY PHYSICIAN Emergency Medicine; FAMILY PHYSICIAN Family Medicine
DX: R07.89 Other chest pain (principal); I25.10 Atherosclerotic heart disease of native coronary artery without angina pectoris; I10 Essential (primary) hypertension; E78.00 Pure hypercholesterolemia, unspecified; E11.9 Type 2 diabetes mellitus without complications; K21.9 Gastro-esophageal reflux disease without esophagitis; Z87.442 Personal history of urinary calculi; Z94.81 Bone marrow transplant status; Z95.1 Presence of aortocoronary bypass graft
CPT/HCPCS: 99284; 96374; 71045; 71275; 80048; 80053; 84484; 85025; 85610; 93005; Q9967

== ENCOUNTER → 2023-12-15 13:17 | Outpatient (REF) | payer BC, SELFPAY | LOC: HWRCS 13:17 | PROVIDERS: ATTENDING PHYSICIAN Physician Assistant; FAMILY PHYSICIAN Family Medicine; REFERRING PHYSICIAN Thoracic Surgery (Cardiothoracic Vascular Surgery) | DX: I25.10 Atherosclerotic heart disease of native coronary artery without angina pectoris (principal); Z95.1 Presence of aortocoronary bypass graft; I31.39 Other pericardial effusion (noninflammatory) | CPT/HCPCS: 71046; 93308 ==

== ENCOUNTER 2024-04-16 01:16 | Inpatient (IN) | payer BC, SELFPAY ==
[2024-04-15 19:54] VITALS: BP 172/119
[2024-04-15 20:12] LABS: % Basophils 0.3 % (0-2); % Eosinophils 0.6 % (0-6); % Immature Granulocytes 0.6 % (0-0.5); % Lymphocytes 24.5 % (20.5-51.1); Absolute Eosinophils 0.1 10^3/uL (0-0.7); Absolute Immature Granulocytes 0.1 10^3/uL (0-0.05); Absolute Lymphocytes 2.7 10^3/uL (1.2-3.4); Absolute Monocytes 1.7 10^3/uL (0.1-0.6); Absolute Neutrophils 6.3 10^3/uL (1.4-6.5); Hematocrit 45.7 % (39.0-52.0); Hemoglobin 15.3 g/dL (13.0-18.0); Mean Corp Hgb Conc. 33.5 g/dL (33.0-37.0); Mean Corpuscular Hgb 31.7 pg (27.0-31.0); Mean Corpuscular Volume 94.6 fL (80.0-94.0); Mean Platelet Volume 9.3 fL (7.4-10.4); Nucleated Red Blood Cells % 0 % (-); Platelet Count 436 10^3/uL (130-400); Red Blood Cell Count 4.83 10^6/uL (4.70-6.10); Red Cell Dist. Width 14.7 % (11.5-14.5); White Blood Cell Count 10.8 10^3/uL (4.8-10.8)
[2024-04-15 20:27] LABS: Blood Urea Nitrogen 20 mg/dl (9-20); Calcium 9.6 mg/dl (8.4-10.2); Carbon Dioxide 28 mmol/L (22-30); Glucose 122 mg/dl (70-99); eGFR > 60.00
[2024-04-15 20:35] LABS: Chloride 99 mmol/L (98-107); Sodium 138 mmol/L (135-145)
[2024-04-15 20:38] LABS: Troponin I < 0.012 ng/ml
[2024-04-15] MEDS: MORPHINE SULFATE 4 MG IV (22:28)
--- NOTE | 2024-04-15 23:04 | ED.GENMED ---
History of Present Illness
General
Chief Complaint: Chest Pain
Source: patient
Exam Limitations: none
Time Seen by Provider: 04/15/24 22:20
Nursing documentation reviewed up to this point in time: agreed with
History of Present Illness
History of Present Illness:
63-year-old male with past medical history of CAD, diabetes, kidney stones presenting to the emergency department today with concerns of chest pain that started around noon today roughly 8 hours prior to arrival to the emergency department.
Progressively worsening associated nausea and episode of vomiting. Radiates to his back. Described as sharp and aching as well as pressure. Denies similar symptoms in the past. Claims that the pain is very severe. Denies significant associated
diaphoresis or shortness of breath.
Past History
Past History
ED Past Medical History: CAD, Cancer (Chronic myelogenous leukemia, status post bone marrow transplant 1995 ), GERD, HTN, Hypercholesterolemia, NIDDM, Other (Chronic chest wall pain, Headache, Neck pain, Numbness in arms and leg. Herniated disc
neck. Brachial plexopathy, Angina, RBBB, Diverticulitis, Renal calculus, Shingles, ) and Other (Intracranial bleed)
ED Past Surgical History: Cardiac (Cardiac catheterization November 2012, normal coronary arteries, Open heart, ), Orthopedic (Right ankle, Tib/Fb surgery) and Other (Bone marrow transplant 1995 , Hemorrhoidectomy, )
Social History
Tobacco: Non-smoker
Alcohol: None
Drug: None
Personal:
Living: with family
Employment: Employed
Family History
Family History: Negative Early CAD, CAD or Sudden
Review of Systems
Review of Systems
Allergies reviewed?: Yes
All Other Systems: ROS reviewed and negative except as documented in HPI and ROS
Phy Exam
Physical Exam
Physical Exam:
GENERAL: Alert , in no apparent distress
EYE: pupils equal and reactive
NECK: Supple, no significant adenopathy.
ENT: o/p clr, mmm.
CARDIAC: Regular rate and rhythm .
LUNGS: Clear breath sounds bilaterally, no acute respiratory distress, no wheezes/rales/rhonchi
ABDOMEN: Soft, without focal tenderness, no r/g, no cvat
NEUROLOGICAL: Alert and oriented, no focal neuro deficits
SKIN: Warm and dry, skin intact.
MUSCULOSKELETAL: No edema, well perfused.
PSYCH: Normal and appropriate interaction.
Scores
Heart Score for Chest Pain Patients
STEMI patient?: No
History: Slightly or Non-Suspicious
ECG: Nonspecific Repolarization
Age: >45 - <65 years
Risk Factors: >/= 3 Risk Factors or History of CAD
Troponin: </= Normal Limit
Heart Score for Chest Pain Patients: 4
Heart Score Risk: 20.3% MACE over next 6 weeks
Course
Orders/Labs/Results
Orders:
Orders
04/15/24 19:46
Electrocardiogram (*1) Urgent
Reason for Study: Chest Pain
EKG- Treatment ONCE
04/15/24 20:05
Basic Metabolic Panel Urgent
Complete Blood Count/With Diff Urgent
Troponin I Urgent
04/15/24 21:40
Electrocardiogram (*1) Urgent
Reason for Study: Chest Pain
EKG- Treatment ONCE
04/15/24 22:20
CT Chest/abd/pelvis Angio W/wo Urgent
Comment:
Reason For Exam: chest pain radiating to back
Morphine Sulfate 4 mg IV NOW STA
04/15/24 23:01
Aspirin 325 mg PO NOW STA
04/15/24 23:03
Add On- LAB Urgent
Tests Added?: lipase, lft's
04/15/24 23:04
0.9% Sodium Chloride 1000 ml [Nss] 1,000 ml IV BOLUS
04/15/24 23:30
US Abdomen Complete/Upper Urgent
Comment:
Reason For Exam: upper abd pain,
04/15/24 23:32
CMP [Comprehensive Metabolic Panel] Urgent
Troponin I Urgent
04/16/24 00:02
HYDROmorphone [Dilaudid] 0.5 mg IV NOW STA
Piperacillin/Tazo 3.375 Gram [Zosyn] 3.375 gram in 50 ml IV NOW
04/16/24 01:03
Admit/Transfer Patient As Directed
Co-Sign Provider:
Level of Care: Inpatient admission
Assign to:: Medical/Surgical
Physician / Group: hospitalist
Diagnosis: choledocholithiasis
Reason for Hospitalization: choledocholithiasis
Expected length of stay greater than two midnights?: Yes
ELOS- Estimated Length of Stay in days: 2
I certify the patient meets the requirements for IP care: Yes
PRN Pain Medication Management As Directed
May give lesser potent ordered pain med per pt: Yes
preference::
Protocol:: Medication orders for pain may be administered in a
manner that supports deferring to patient preference
when the pt is:
- Requesting an ordered lesser potent pain medication.
Least to most potent pain medications are defined
as: acetaminophen < NSAID < tramadol < opioids
(morphine, oxycodone, hydromorphone).
- Requesting a lesser dose of the same medication IF
ORDERED.
- Requesting a less intrusive route of administration
if both routes are prescribed by the provider (PO <
IV).
04/16/24 01:04
Code Status As Directed
Resuscitation Status: Full Code
04/16/24 01:48
Acetaminophen [Tylenol] 650 mg PO Q4HPRN PRN
Bisacodyl [Dulcolax] 10 mg RECTAL [id number] PRN
Docusate W/Senna [Senokot-S] 1 tablet PO BIDPRN PRN
HYDROmorphone [Dilaudid] 1 mg IV Q4HPRN PRN
Ondansetron Injectable [Zofran] 4 mg IV Q6HPRN PRN
Oxycodone [Roxicodone] 5 mg PO Q4HPRN PRN
Polyethylene Glycol Powder [Miralax] 17 grams PO DAILYPRN PRN
04/16/24 01:48
GASTROINTESTINAL CONSULT Routine
Consulting Provider: Meliton Chavarria
Was physician already notified: Yes
Reason for consult: choledocholithiasis
SURGICAL CONSULT Routine
Consulting Provider: Renny iWlson
Was physician already notified: Yes
Reason for consult: GB stones, choledocholithiasis, ?cholecystitis
Activity As Directed
Activity Level: With Assistance
Bedside Glucose Monitoring As Directed
Frequency: Q6H
Vital Signs As Directed
Frequency: Per unit guidelines
DX Deep Vein Thrombosis Video Routine
04/16/24 02:00
Lactated Ringers [Lr] 1,000 ml IV 100 mls/hr
04/16/24 05:02
Complete Blood Count/No Diff IN AM
04/16/24 06:00
Insulin Aspart Corrective Low [Novolog Flexpen-Low Resistance] See Protocol SC Q6
Piperacillin/Tazo 3.375 Gram [Zosyn] 3.375 gram in 50 ml IV Q6H
04/16/24 08:00
Atorvastatin [Lipitor] 80 mg PO DAILY
Metoprolol Xl [Toprol Xl] 25 mg PO DAILY
Pantoprazole [Protonix IV] 40 mg IV DAILY
04/16/24 18:00
Enoxaparin Sodium [Lovenox] 40 mg SC QPM
Abnormal Lab Results
04/15/24 04/15/24
20:05 23:32
MCV 94.6 H fL
(80.0-94.0)
MCH 31.7 H pg
(27.0-31.0)
RDW 14.7 H %
(11.5-14.5)
Plt Count 436 H 10^3/uL
(130-400)
Abs Immat Gran (auto) 0.1 H 10^3/uL
(0-0.05)
Absolute Monos (auto) 1.7 H 10^3/uL
(0.1-0.6)
Immature Gran % 0.6 H %
(0-0.5)
Monocytes % 16.0 H %
(1.7-9.3)
Glucose 122 H mg/dl 133 H mg/dl
(70-99) (70-99)
Total Bilirubin 3.1 H mg/dl
(0.2-1.3)
AST 441 H U/L
(17-59)
ALT 513 H* U/L
(0-50)
Alkaline Phosphatase 763 H U/L
(38-126)
04/15/24 20:05
04/15/24 23:32
Vital Signs
Initial and Last Documented VS:
Initial Vital Signs
Temp Pulse Resp BP Pulse Ox
98.2 F 105 20 172/119 100
04/15/24 19:54 04/15/24 19:54 04/15/24 19:54 04/15/24 19:54 04/15/24 19:54
Last Documented Vital Signs
Temp Pulse Resp BP Pulse Ox
98 F 82 18 133/80 96
04/19/24 03:13 04/19/24 03:13 04/19/24 03:13 04/19/24 03:13 04/19/24 03:13
MDM/Problems Addressed
MDM/Problems Addressed:
63-year-old male presenting to the emergency department with concerns of severe lower chest pain rating to his back. Associated nausea and vomiting. Progressive over the past 8 hours or so. On arrival patient hypertensive mildly tachycardic
afebrile. Labs without significant white count. Initially patient mainly describing chest discomfort rating to the back. Considering this and his description of severe symptoms CT dissection study ordered. Dissection study did not show aortic
pathology but did show potential biliary pathology. Patient did have elevated bilirubin and liver function tests. Case then additionally discussed with general surgery GI. Will be admitted to medicine for further management and monitoring
overnight.
*Critical Care Note
Total Time (30-74mins, 75-104mins- exclusive of procedures): Not Applicable
ED Attending Note
-
Portions of this chart may have been created with voice recognition software.� Occasional wrong word or��sound alike� substitutions may have occurred due to the inherent limitations of voice recognition software.
Discharge Plan
Departure
Patient Disposition: Admit
Date of Disposition: 04/16/24
Time of Disposition: 00:03
Admit to: Med/Surg
Admit to doctor: Jamaal
Presentation/result/management discussed w/ accepting MD/DO: Hospitalist
Patient with high blood pressure during this ER visit?: No
Condition: Fair
Covid-19: Not Applicable
Discharge Problem:
Choledocholithiasis, Bilirubinemia, Transaminitis
Interventions
Interventions:
*Risk Screen - Suicide Last Done: 04/15/24 19:54
*General Assessment Last Done: 04/15/24 19:54
*Neglect/Abuse Screening Last Done: 04/16/24 01:34
ED- Fall Risk Assessment Last Done: 04/16/24 01:25
*ED COVID-19 Vaccine History Last Done: 04/16/24 01:33
*Nursing Disposition Last Done: 04/16/24 02:51
ED- Cardiac Assessment Last Done: 04/15/24 23:21
[2024-04-15] MEDS: NSS 1000 IV (23:13)
[2024-04-15 23:22] VITALS: BMI 32.2
[2024-04-15 23:23] VITALS: BP 151/104
[2024-04-15] MEDS: ASPIRIN 325 MG PO (23:26)
[2024-04-16] VITALS (16 sets, daily range): BP systolic 106–149; BP diastolic 64–94; BMI 31.6
[2024-04-16 00:01] LABS: ALT (SGPT) 513 U/L (0-50); AST (SGOT) 441 U/L (17-59); Albumin 4.2 g/dl (3.5-5.0); Alkaline Phosphatase 763 U/L (38-126); Blood Urea Nitrogen 18 mg/dl (9-20); Calcium 9.2 mg/dl (8.4-10.2); Carbon Dioxide 23 mmol/L (22-30); Chloride 101 mmol/L (98-107); Estimated Creatinine Clearance 65 ml/min; Glucose 133 mg/dl (70-99); Potassium 4.4 mmol/L (3.5-5.1); Sodium 137 mmol/L (135-145); Total Bilirubin 3.1 mg/dl (0.2-1.3); Total Protein 7.2 g/dl (6.3-8.2); eGFR > 60.00
[2024-04-16 00:08] LABS: Troponin I < 0.012 ng/ml
--- NOTE | 2024-04-16 00:35 | HPS.HSE ---
Family Physician
-
Family Physician: Rico Lopez
Chief Complaint
-
Epigastric pain
History of Present Illness
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
three-vessel CABG, complicated with pericardial tamponade status post pericardiocentesis, [id number] diabetes, GERD, hypertension, prior cerebral aneurysm presented to the emergency department with acute episode of epigastric pain
radiating to the back.
The pain started around noon today roughly 8 hours prior to arrival to the emergency department. Progressively worsening associated nausea and episode of vomiting. Radiates to his back. Described as sharp and aching as well as pressure. Denies
similar symptoms in the past. Claims that the pain is very severe. Denies significant associated diaphoresis or shortness of breath.
On arrival in the emergency department he was afebrile, satting 99% on room air. Blood pressure was 150/100 with a pulse of 112. ECG shows sinus tachycardia at 109 with normal right bundle branch block and no acute ST or T wave changes. Troponin
was 0.012. CBC was unremarkable. Chemistries were notable for elevated bili to 3.1, AST, ALT and alk phos. CT of the abdomen pelvis reported show a small stone seen in the distal common bile duct and ductal dilation. Mild gallbladder
inflammation. There was no dissection or pulmonary embolism.
Medical History
Past Medical History
Past Medical History: Reports CAD (Chronic chest pain, angina, status post catheterization November 2012 with normal coronaries, status post CABG 2013, complicated by pericardial effusion/tamponade status post pericardiocentesis), Cancer (CML
status post bone marrow transplant 1995), HTN, Hypercholesterolemia, NIDDM and Other (History of diverticulitis, nephrolithiasis,)
Additional Past Medical History:
Pericardial tamponade status post pericardiocentesis
Past Surgical History: Reports Orthopedic (Right ankle, tib-fib surgery)
Additional Past Surgical History:
Hemorrhoidectomy
Bone marrow transplant at 89
Social History
Tobacco: Non-smoker
Alcohol: None
Drug: None
Personal:
Living: With Family
Employment: Employed
Family History
Family History: Not pertinent
Allergies / Home Medications
Allergies reflects when Allergies were last updated in [facility].
Home Medications with original date entered in [facility]
Allergy/Medication List:
Allergies
Allergy/AdvReac Type Severity Reaction Status Date / Time
No Known Allergies Allergy Verified 04/15/24 19:58
Home Medications
esomeprazole magnesium 40 mg capsule,delayed release (Nexium) 40 mg PO DAILY Gastrointestinal Issue 12/01/12
metformin 500 mg tablet 500 mg PO BID AT 0800,1700 Diabetes 03/29/20
aspirin 81 mg capsule 81 mg PO HS Blood Clot Prevention/Tx 08/14/23
nilotinib HCl 150 mg capsule (Tasigna) 150 mg PO HS Cancer 08/14/23
tirzepatide 5 mg/0.5 mL subcutaneous pen injector (Mounjaro) 5 mg SC QWEEK Diabetes 08/14/23
atorvastatin 80 mg tablet 80 mg PO DAILY High Cholesterol 08/20/23
acetaminophen 325 mg tablet 650 mg (2 x 325 mg) PO Q4HPRN PRN mild pain,headache,temp >101F #0 tabs 09/03/23
metoprolol succinate 25 mg tablet,extended release 24 hr (Toprol XL) 25 mg PO DAILY Blood Pressure #0 tabs 09/03/23
oxycodone 5 mg tablet 2.5 mg (1/2 x 5 mg) PO Q4HPRN PRN severe pain #10 tabs 09/03/23
pantoprazole 40 mg tablet,delayed release 40 mg PO DAILY gi prophylaxis while on plavix #30 tabs 09/03/23
colchicine 0.6 mg tablet 0.3 mg (1/2 x 0.6 mg) PO DAILY 90 days #45 tabs 09/18/23
polyethylene glycol 3350 17 gram/dose oral powder 17 g PO BID #510 grams 09/18/23
oxycodone 5 mg tablet 5 mg PO TID PRN Pain #14 tabs 10/18/23
Review of Systems
-
History Source: Patient
Constitutional: Reports No Symptoms
EENT: Reports No Symptoms
Respiratory: Reports No Symptoms
Cardiac: Reports Chest Pain
Abdomen/GI: Reports Abdominal Pain and Nausea
: Reports No Symptoms
Musculoskeletal: Reports No Symptoms
Skin: Reports No Symptoms
Endocrine: Reports No Symptoms
Hematologic/Lymphatic: Reports No Symptoms
Psych: Reports No Symptoms
Physical Exam
Vital Signs
Vital Signs
Temp Pulse Resp BP Pulse Ox
98.2 F 112 18 151/104 99
04/15/24 19:54 04/15/24 23:23 04/15/24 23:23 04/15/24 23:23 04/15/24 23:23
Physical Exam
General: Well Developed, Well Nourished and Pain
HEENT: NormoCephalic, Anicteric, Moist mucous membranes and Atraumatic
Respiratory: Clear
Cardiac: S1/S2, Regular Rhythm and Tachycardia
GI: Soft, Non Distended, Normal Bowel Sounds and Tender
Rectal: Deferred by Provider
Genito-urinary: Deferred by me
Musculoskeletal: No Clubbing and No Cyanosis
Skin: Warm
Neuro: AO x 3 and Nonfocal/grossly intact
Hematologic/Lymphatic: No Lymphadenopathy
Psych: Calm
Laboratory Results
-
04/15/24 20:05
04/15/24 23:32
Laboratory Results
Total Bilirubin 3.1 mg/dl (0.2-1.3) H 04/15/24 23:32
AST 441 U/L (17-59) H 04/15/24 23:32
ALT 513 U/L (0-50) H* 04/15/24 23:32
Alkaline Phosphatase 763 U/L (38-126) H 04/15/24 23:32
Troponin I < 0.012 ng/ml 04/15/24 23:32
Data Reviewed
-
CT Scan: Report Reviewed by me
Medical Tests (Nuc Med, Echo, EKG etc): Image Personally Visualized and interpreted
Lab Data: Labs Reviewed by me
Old Records: Reviewed
Impression/Plan
-
IMPRESSION:
Patient with CAD s/p CABG thought secondary to Tasigna and complicated by pericardial effusion/tamponade s/p pericardiocentesis this year coming in with epigastric/chest pain radiating to back. ECG is non-ischemic. Trop negative x 2. CT shows
gall stones and a small CBD stone. Has elevated bilirubin with transaminitis. Picture is c/w choledocholithiasis. Possible cholecystitis with mild gall bladder inflammatory changes. Hemodynamically stable but significant pain.
PLAN:
1. Choledocholithiasis
- admit to med/surg
- u/s pending
- check u/s, mrcp in am
- trend lfts
- NPO except meds for now
- pain control, antiemetics and iv fluids
- continue zosyn for now
- Gi consult
- surgery consult
2. CAD
- s/p asa 325, hold further aspirin for now
- continue statin
3. DM II
- hold metformin x 48 hours
- sliding scale insulin
DVT PPX - lovenox sq
Code status - full code
[2024-04-16] MEDS: DILAUDID 0.5 MG IV (00:50)
[2024-04-16] MEDS: ZOSYN 50 IV ×4 (00:52→17:49)
[2024-04-16] MEDS: LR 1000 IV ×3 (02:02→18:23)
--- NOTE | 2024-04-16 03:03 | PTCARENOTE ---
Received pt as an ER hold. Pt AAOx3. HR in the low 100's, POX 96% on RA> lungs clear. + bowel, round abd. Pt reports epigastric 3/10 pain at this time post pain medication administration. Palpable peripheral pulses present. Pt using urinal or walk
to bathroom when needed. Pt resting comfortably at this time. Call mcclain in reach. Will continue to monitor.
[2024-04-16 05:39] LABS: Hematocrit 39.7 % (39.0-52.0); Hemoglobin 13.7 g/dL (13.0-18.0); Mean Corp Hgb Conc. 34.5 g/dL (33.0-37.0); Mean Corpuscular Hgb 31.9 pg (27.0-31.0); Mean Corpuscular Volume 92.5 fL (80.0-94.0); Mean Platelet Volume 9.7 fL (7.4-10.4); Platelet Count 397 10^3/uL (130-400); Red Blood Cell Count 4.29 10^6/uL (4.70-6.10); Red Cell Dist. Width 14.7 % (11.5-14.5); White Blood Cell Count 18.2 10^3/uL (4.8-10.8)
[2024-04-16 05:42] LABS: Glucose - Point of Care 114 mg/dl (70-99)
[2024-04-16 06:18] LABS: ALT (SGPT) 536 U/L (0-50); AST (SGOT) 468 U/L (17-59); Albumin 3.4 g/dl (3.5-5.0); Alkaline Phosphatase 754 U/L (38-126); Blood Urea Nitrogen 17 mg/dl (9-20); Calcium 8.9 mg/dl (8.4-10.2); Carbon Dioxide 24 mmol/L (22-30); Chloride 103 mmol/L (98-107); Direct Bilirubin 2.2 mg/dl (0.0-0.4); Estimated Creatinine Clearance 71 ml/min; Glucose 112 mg/dl (70-99); Potassium 4.5 mmol/L (3.5-5.1); Sodium 138 mmol/L (135-145); Total Bilirubin 3.4 mg/dl (0.2-1.3); Total Protein 6.2 g/dl (6.3-8.2); eGFR > 60.00
--- NOTE | 2024-04-16 06:48 | CON.GI ---
Addendum entered and electronically signed by Meliton Chavarria MD 04/16/24 12:21:
I saw and examined the patient.
The NETWORK ANNOUNCER or PA's note was reviewed and I agree with the note.
Comment: 63yo male presents with upper abd/chest/back pain sudden onset. Also had chills and tachycardia. WBC 18.2. Tbil 3.1, AST 468, ALT 536. AP 754. CT CAP done negative for dissection, but does show CBD 10mm and possible distal CBD stone,
also heterogeneous liver c/w cardiac congestion. Has hx cardiac tamponade after CABG treated with pericardiocentesis. Also hx CML, BMTransplant. Reports dysphagia since CABG
REC:
Plan for ERCP this afternoon to treat likely CBD stone
MRI/MRCP has been ordered. If not able to complete before ERCP, EUS can be done to confirm CBD stone
NPO
Abx
Also eval esophagus at time of ERCP given recent dysphagia
Original Note:
Consultation
-
Date/Time Consultation Requested: 04/16/24 0145
Date/Time Consultation Performed: 04/16/24 0700
Requesting Provider: yaquelin Hinton MD
Performing Provider: BRIDGET Sweeney, Meliton Chavarria MD
Reason for Consultation: increased LFT's, abdominal pain
Medical History
Chief Complaint / HPI
Chief Complaint: epigastric pain
History of Present Illness:
Pt is a 63yo with hx CML with bone marrow transplant in 1995 with recurrence in 1998(off med since July with cardiac issues), prior TX with prior CABG x3 with post-op pericardial tamponade with prior pericardiocentesis in August 2023, NIDDM on
Mounjaro with recent dose increased, GERD, HTN, diverticulitis, renal stone, cerebral aneurysm presents with chest/epigastric abdominal pain with radiation to back. Pt also admits to feeling of fever/chills with noted tachycardia on admission.
Labs noted with bili 3.1, AST 441, ALT 513, alk darien 763 with lipase of 55 and rise in WBC to 18,200 after admission. Imaging on admission with CT chest/abd/pelvis angio with no heart enlargement, no aortic aneurysm or dissection, CBD up to 10mm
with possible stone. Also noted 'nutmeg' liver with increased right heart pressure or hepatitis. 04/15/24 US with cholelithiasis without acute cholecystitis, CBD dilatation with obstructing cause, increased liver echogenicity c/w underlying
hepatocellular disease most common related to fatty liver, vessel appear patent.
In review with patient he has had of mother and friend over last week with increased stress. He initially started with pain several days ago and though stress related. Symptoms progressed and worsened with eating and dark urine. Pain
up to 20/10. He began with non bloody emesis and shaking chills. He also reports 65 lb wt loss with Mounjaro with recent increased dose 1 month ago. He also admits to dysphagia since CABG several months ago. Worse with solids. + occasional GERD
on Nexium daily. + constipation but no diarrhea or rectal bleeding. hx EGD years ago and colonoscopy - several in past ? [facility] recall benign polyps. Family hx colon Ca in mother.
Past Medical History
Past Medical History: CAD, Cancer (CML with prior bone marrow transplant 1995), GERD, HTN, NIDDM and Other (08/2023-pericardial effusion/tamponade with pericardiocentesis , renal stones, cerebral aneurysm)
Past Surgical History: Cardiac (CABG), Orthopedic (ankle, Tib/fib surgery) and Other (hemorrhoidectomy, diverticulitis )
Social History
Tobacco: Non-Smoker
Alcohol: None
Drug: None
Personal:
Living: With Family
Employment: Employed
Family History
Family History: Other (mother hx colon CA just past s/p fx with complication )
Allergies / Home Medications
Allergy/AdvReac Type Severity Reaction Status Date / Time
No Known Allergies Allergy Verified 04/15/24 19:58
�Medication �Instructions �Recorded
esomeprazole magnesium 40 mg 40 mg PO DAILY Gastrointestinal 12/01/12
capsule,delayed release (Nexium) Issue
metformin 500 mg tablet 500 mg PO BID AT 0800,1700 Diabetes 03/29/20
aspirin 81 mg capsule 81 mg PO HS Blood Clot 08/14/23
Prevention/Tx
nilotinib HCl 150 mg capsule 150 mg PO HS Cancer 08/14/23
(Tasigna)
tirzepatide 5 mg/0.5 mL 5 mg SC QWEEK Diabetes 08/14/23
subcutaneous pen injector
(Mounjaro)
atorvastatin 80 mg tablet 80 mg PO DAILY High Cholesterol 08/20/23
acetaminophen 325 mg tablet 650 mg (2 x 325 mg) PO Q4HPRN PRN 09/03/23
mild pain,headache,temp >101F #0
tabs
metoprolol succinate 25 mg 25 mg PO DAILY Blood Pressure #0 09/03/23
tablet,extended release 24 hr tabs
(Toprol XL)
oxycodone 5 mg tablet 2.5 mg (1/2 x 5 mg) PO Q4HPRN PRN 09/03/23
severe pain #10 tabs
pantoprazole 40 mg tablet,delayed 40 mg PO DAILY gi prophylaxis 09/03/23
release while on plavix #30 tabs
colchicine 0.6 mg tablet 0.3 mg (1/2 x 0.6 mg) PO DAILY 90 09/18/23
days #45 tabs
polyethylene glycol 3350 17 17 g PO BID #510 grams 09/18/23
gram/dose oral powder
oxycodone 5 mg tablet 5 mg PO TID PRN Pain #14 tabs 10/18/23
Review of Systems
-
History Source: Patient
Constitutional: Reports Fever, Weight Loss ( 65 lbs with moujaro use ) and Chills
EENT: Reports No Symptoms
Respiratory: Reports No Symptoms
Cardiac: Reports Chest Pain
Abdomen/GI: Reports Abdominal Pain, Nausea, Vomiting, Constipated and Other (several months of dysphagia )
: Reports Dark Urine
Musculoskeletal: Reports No Symptoms
Skin: Reports No Symptoms
Neurological: Reports Weakness
Endocrine: Reports No Symptoms
Hematologic/Lymphatic: Reports No Symptoms
Vital Signs
Temp Pulse Resp BP Pulse Ox
99.0 F 108 20 134/88 96
04/16/24 03:00 04/16/24 03:00 04/16/24 03:00 04/16/24 03:00 04/16/24 03:00
Physical Exam
Exam
General: Well Developed and Well Nourished
HEENT: Other (jaundice )
Respiratory: Clear
Cardiac: Other (tachy )
GI: Soft, Non Distended and Tender (RUQ)
Musculoskeletal: No Clubbing and No Cyanosis
Skin: Warm and Dry
Neuro: Awake, Alert and AO x 3
Psych: Calm
Results
WBC 18.2 10^3/uL (4.8-10.8) H 04/16/24 05:02
Hgb 13.7 g/dL (13.0-18.0) 04/16/24 05:02
Hct 39.7 % (39.0-52.0) 04/16/24 05:02
MCV 92.5 fL (80.0-94.0) 04/16/24 05:02
Plt Count 397 10^3/uL (130-400) 04/16/24 05:02
Absolute Neuts (auto) 6.3 10^3/uL (1.4-6.5) 04/15/24 20:05
Sodium 138 mmol/L (135-145) 04/16/24 05:02
Potassium 4.5 mmol/L (3.5-5.1) 04/16/24 05:02
Chloride 103 mmol/L (98-107) 04/16/24 05:02
Carbon Dioxide 24 mmol/L (22-30) 04/16/24 05:02
BUN 17 mg/dl (9-20) 04/16/24 05:02
Creatinine 1.2 mg/dL (0.7-1.3) 04/16/24 05:02
Calcium 8.9 mg/dl (8.4-10.2) 04/16/24 05:02
Total Bilirubin 3.4 mg/dl (0.2-1.3) H 04/16/24 05:02
AST 468 U/L (17-59) H 04/16/24 05:02
ALT 536 U/L (0-50) H* 04/16/24 05:02
Alkaline Phosphatase 754 U/L (38-126) H 04/16/24 05:02
Diagnostic Image Results:
04/15/24 CT Chest/abd/pelvis Angio W/wo
1. No aortic aneurysm or dissection.
2. Common bile duct dilatation up to 10 mm with possible distal CBD stone noted. Diffusely heterogeneous appearance of the liver ('Nutmeg liver') may reflect increased right heart pressure or hepatitis. Abdominal ultrasound to follow.
heart not enlarged
04/15/24 US Abdomen Complete/Upper
1. Cholelithiasis without sonographic evidence for acute cholecystitis.
2. Common bile duct dilatation without discrete obstructing cause identified sonographically, although not excluded. MRI has been ordered.
3. Increased echogenicity in the liver, compatible with underlying hepatocellular disease, which most commonly relates to fatty infiltration of the liver.
Prior GI Procedures:
EGD: years ago
Colonoscopy: several with hx benign polyps
Assessment / Plan
-
Pt is a 63yo with hx CML with bone marrow transplant in 1995 with recurrence in 1998(off med since July with cardiac issues), prior TX with prior CABG x3 with post-op pericardial tamponade with prior pericardiocentesis in August 2023, NIDDM on
Mounjaro with recent dose increased, GERD, HTN, diverticulitis, renal stone, cerebral aneurysm presents with chest/epigastric abdominal pain with radiation to back. Pt also admits to feeling of fever/chills with noted tachycardia on admission.
Labs noted with bili 3.1, AST 441, ALT 513, alk darien 763 with lipase of 55 and rise in WBC to 18,200 after admission. Imaging on admission with CT chest/abd/pelvis angio with no heart enlargement,no aortic aneurysm or dissection, CBD up to 10mm
with possible stone. Also noted 'nutmeg' liver with increased right heart pressure or hepatitis. 04/15/24 US with cholelithiasis without acute cholecystitis, CBD dilatation with obstructing cause, increased liver echogenicity c/w underlying
hepatocellular disease most common related to fatty liver, vessel appear patent. No anticoagulation prior to admission.
-chest/ epigastric abdominal pain
-increased LFT's with normal lipase
-tachycardia
-fever/chills prior to admission
-leukocytosis
-US and CT with CBD dilatation with possible stone vs unclear etiology
-dysphagia since CABG
-fatty liver
-cholelithiasis
-'nutmeg' liver with increased right heart pressure vs hepatitis//US with fatty liver
-chronic Mounjaro use with recent dose increase and 65 lbs wt loss
other med problems:
--CML with prior bone marrow transplant 1995 with recurrence 1998-- off meds since August with cardiac issues
--pericardial tamponade with prior pericardiocentesis in August 2023
--TX/CAD with prior CABG x 01 Aug 2023
--NIDDM
--GERD
--diverticulitis
--renal stones
--cerebral aneurysm
PLAN:
etiology of pain with LFT elevation related to biliary etiology - CBD stone vs congestive vs other
noted with leukocytosis, fever/chill prior to admission, tachycardia concern for cholangitis
CT and US reviewed- with CBD 10mm
for MRI/MRCP vs if delay proceed with EUS and if needed ERCP
will also add EGD with recent dysphagia
cont to trend labs
NPO
cont abx
s/p surgical eval as will need to consider darci
last mounjaro 04/11--
-
-
Thank you for consultation and allowing me to participate in the patient's care. Please call the adjuster electrical contacts GI physician during the after hours with any questions or concerns.
[2024-04-16 07:34] LABS: Lipase 55 U/L (23-300)
[2024-04-16] MEDS: PROTONIX IV 40 MG IV (08:21)
[2024-04-16] MEDS: LIPITOR 80 MG PO (08:21)
[2024-04-16] MEDS: NSS (PRESERVATIVE FREE) 10 ML IV (08:22)
--- NOTE | 2024-04-16 10:39 | W.PN.HOSP.TC ---
Today's Communication/Plan
-
Continue with the pain regimen and antibiotics
Follow MRI abdomen report
Await GI and surgical input
Assessment / Plan
Assessment / Plan
Patient with CAD s/p CABG thought secondary to Tasigna and complicated by pericardial effusion/tamponade s/p pericardiocentesis this year coming in with epigastric/chest pain radiating to back. ECG is non-ischemic. Trop negative x 2. CT shows
gall stones and a small CBD stone. Has elevated bilirubin with transaminitis. Picture is c/w choledocholithiasis. Possible cholecystitis with mild gall bladder inflammatory changes. Hemodynamically stable but significant pain.
PLAN:
Acute Choledocholithiasis with concern for biliary sepsis
Cholelithiasis without radiological evidence of acute cholecystitis
-Patient with ongoing abdominal pain. Acute cholecystitis hepatitis picture noted. Lipase is normal. Ultrasound of the abdomen shows choledocholithiasis and a mobile gallstone and concern of hepatic disease. GI consulted. MRI of the abdomen
requested and pending.
-Continue the pain regimen and as well as antibiotics for now.
-Also consult with general surgery with mobile gallstone and current complicated biliary disease.
CAD
- s/p asa 325, continue with aspirin if okay from proceduralist
- continue statin
DM II
- hold metformin x 48 hours and Mounjaro
- sliding scale insulin
CML-s/p bone marrow transplant 1995 followed by Gleevac treatment for 18 years and followed later by Tasigna treatment for 5 years which was stopped after CAD. Is currently on surveillance lab draws.
HTN -cw home meds
DVT PPX - lovenox sq
Code status - full code
Total time spent on today's encounter was 52 minutes which included time spent in counseling the patient/family regarding diagnosis and treatment plan as listed above, goals of care, and symptom management. Case was discussed with nursing staff,
specialists, and care coordinators/case management. All labs and imaging personally reviewed by me. Remainder the time spent in detailed review of previous records, lab data, imaging, and other medical provider documentation.
Anticipated Discharge: > 48 hours
Subjective/Interval History
-
Date of Service: April 16, 2024
Patient had a lot of nausea and multiple episodes of vomiting yesterday. No further vomiting. Nausea has improved.
Abdominal pain improved but needs pain medication.
He had chills yesterday.
Denies SOB
Objective Data
-
Labs:
Laboratory Results
04/15/24 04/16/24
23:32 05:02
WBC 18.2 H
Hgb 13.7
Hct 39.7
Plt Count 397
Sodium 137 138
Potassium 4.4 4.5
Chloride 101 103
Carbon Dioxide 23 24
BUN 18 17
Creatinine 1.3 1.2
Glucose 133 H 112 H
Calcium 9.2 8.9
Total Bilirubin 3.1 H 3.4 H
AST 441 H 468 H
ALT 513 H* 536 H*
Alkaline Phosphatase 763 H 754 H
Vital Signs:
Vital Signs
Temp Pulse Resp BP Pulse Ox
98.9 F 95 20 126/64 95
04/16/24 08:17 04/16/24 08:17 04/16/24 08:17 04/16/24 08:17 04/16/24 08:17
I&O
04/15/24 04/16/24 04/17/24
06:59 06:59 06:59
Intake Total 450 / 450
Output Total 650 / 650
Balance -200 / -200
Review of Systems
-
Respiratory: Denies Cough
Cardiac: Denies Chest Pain
Neuro: Denies Dizzy
Physical Exam
-
General: No Apparent Distress
HEENT: Moist Mucous Membranes
Respiratory: Clear to Auscultation
Cardiac: Regular Rhythm, S1/S2 and Tachycardic
GI: Soft, Nondistended, Normal Bowel Sounds and Tender (epigastric area)
Neuro: AO x 3
Data Reviewed
-
CT Scan: Report Reviewed by me (CTA chest/abdo/pelvis)
Ultrasound: Report Reviewed by me (abdomen)
Labs: Labs Reviewed by me
--- NOTE | 2024-04-16 10:53 | CON.GS ---
Addendum entered and electronically signed by Tk Griffiths MD 04/16/24 11:35:
I saw and examined the patient.
The Track Service Worker's note was reviewed and I agree with the note.
Comment: 63M 3 days abd pain a/w n/v. pain localized to epigastrium with radiation to his back. Endorses rigors/chills, dark urine, denies stool changes. mod ttp to RUQ/epigastrium. WBC and lfts rising. Rec GI eval, mri, consideration of eus/ercp.
Briefly discussed CCY, he is interested in surgery this admit. Will follow
Original Note:
Consultation
-
Date/Time Consultation Requested: 04/16/24147
Requesting Provider: bayron
Reason for Consultation: GB stones, choledocholithiasis, ?cholecystitis
Medical History
-
Chief Complaint: abdominal pain
History of Present Illness:
Mr. Izaguirre is a 63 yo male with a h/o NIDDM, CAD with CABG 07/2023 complicated by pericardial effusion with pericardiocentesis 08/2023, CML s/p bone marrow transplant in 1995, GERD, diverticulitis, hemorrhoidectomy, nephrolithiasis and cerebral
aneurysm who presents with epigastric discomfort for the past 2-3 days with nausea and vomiting. He initially attributed his symptoms to stress as he had the of a friend and his mother in the last week. His symptoms persisted and worsened last
night with rigors and chills causing him to present through the ED for evaluation. He does note some dysphagia since his cabg but denies recent worsening. he denies diarrhea. He notes dark urine but denies acholic stools. On exam, he is tender to
the RUQ.
Past Medical History
Past Medical History: CAD, Cancer (CML s/p bone marrow transplant in 1995), Diverticulitis, GERD, NIDDM and Other (Nephrolithiasis)
Past Surgical History: Cardiac (cabg 2023, pericardial centesis 08/2023), Orthopedic (right ankle, fib/tib surgery) and Other (Hemorrhoidectomy)
Social History
Tobacco: Non-Smoker
Alcohol: None
Personal:
Living: With Family
Family History
Family History: Reviewed & Not Pertinent
Allergies / Home Medications
Allergy/AdvReac Type Severity Reaction Status Date / Time
No Known Allergies Allergy Verified 04/15/24 19:58
�Medication �Instructions �Recorded �Confirmed �Type
esomeprazole magnesium 40 mg 40 mg PO DAILY Gastrointestinal 12/01/12 04/16/24 History
capsule,delayed release (Nexium) Issue
metformin 500 mg tablet 500 mg PO DAILY Diabetes 03/29/20 04/16/24 History
tirzepatide 5 mg/0.5 mL 7.5 mg SC SETHI Diabetes 08/14/23 04/16/24 History
subcutaneous pen injector
(Mounjaro)
atorvastatin 80 mg tablet 80 mg PO DAILY High Cholesterol 08/20/23 04/16/24 History
acetaminophen 325 mg tablet 650 mg (2 x 325 mg) PO Q4HPRN PRN 09/03/23 04/16/24 Rx
mild pain,headache,temp >101F #0
tabs
aspirin 81 mg tablet,delayed 81 mg PO HS 04/16/24 04/16/24 History
release
metoprolol succinate 25 mg 25 mg PO QPM 04/16/24 04/16/24 History
tablet,extended release 24 hr
(Toprol XL)
multivitamin with minerals-folic 2 tab PO DAILY 04/16/24 04/16/24 History
acid 80 mcg chewable tablet
zolpidem 10 mg tablet (Ambien) 10 mg PO HSPRN PRN sleep 04/16/24 04/16/24 History
Review of Systems
-
History Source: Patient
All other systems: Negative unless noted
A 10 point review of systems was completed, and was negative except as per HPI.
Physical Exam
Vital Signs
Temp Pulse Resp BP Pulse Ox
98.9 F 95 20 126/64 95
04/16/24 08:17 04/16/24 08:17 04/16/24 08:17 04/16/24 08:17 04/16/24 08:17
04/15/24 04/16/24 04/17/24
06:59 06:59 06:59
Actual Weight 96 kg
Body Mass Index (BMI) 32.2
Lab Results
04/16/24 05:02
04/16/24 05:02
WBC 18.2 10^3/uL (4.8-10.8) H 04/16/24 05:02
Hgb 13.7 g/dL (13.0-18.0) 04/16/24 05:02
Hct 39.7 % (39.0-52.0) 04/16/24 05:02
Plt Count 397 10^3/uL (130-400) 04/16/24 05:02
Abs Immat Gran (auto) 0.1 10^3/uL (0-0.05) H 04/15/24 20:05
Neutrophils % 58.0 % (42.2-75.2) 04/15/24 20:05
Physical Exam
General: Well Developed and Well Nourished
HEENT: Moist Mucous Membranes
Respiratory: Non Labored Respirations
GI: Soft, Non Distended and Tender (RUQ)
Skin: Other (pale)
Neuro: Awake, Alert and AO x 3
Psych: Calm
Data Reviewed
-
CT Scan: Image Personally Visualized and interpreted, Report Reviewed by me, Discussed with Physician and Discussed with Patient
Ultrasound: Image Personally Visualized and interpreted, Report Reviewed by me, Discussed with Physician and Discussed with Patient
Labs: Labs Reviewed by me, Discussed with Physician and Discussed with Patient
Old Records: Reviewed
Assessment / Plan
-
63 yo male with h/o NIDDM, CAD with CABG 07/2023 complicated by pericardial effusion with pericardiocentesis 08/2023, CML s/p bone marrow transplant in 1995 presenting with 2-3 days of epigastric pain into the RUQ. CT imaging with dilation of the CBD
and possible distal CBD stone present with heterogenous liver. ABD US with cholelithiasis without evidence of cholecystitis and again the CBD dilation is noted. No leukocytosis on admission but now with WBC of 18.2. Rising LFT's with bilirubin if
3.4 and direct bilirubin of 2.2. Transaminitis present. Troponin negative. Lipase normal. Afebrile with normal vital signs.
Choledocholithiasis suspected with possible ascending cholangitis. Gastroenterology following with us with plans of possible MRCP vs ERCP today. Discussed the role of cholecystectomy with patient for prevention of future episodes. Will discussing
timing of surgery after GI work up completed.
--Continue ABX
--NPO for testing
--Will follow
[2024-04-16] MEDS: DILAUDID 1 MG IV ×2 (11:42→21:18)
[2024-04-16 11:51] LABS: Glucose - Point of Care 91 mg/dl (70-99)
--- NOTE | 2024-04-16 12:42 | PTCARENOTE ---
Patient transferred to [facility] with IVF and all belongings. Patient is pending MRCP and EUS procedure today, MD was unable to give patient or I time for either. Patient taking 1mg Dilaudid for abd pain, denies n/v this shift thus far. Pt able to get
out of bed safely by himself, using urinal to void at times.
[2024-04-16 17:00] LABS: Glucose - Point of Care 106 mg/dl (70-99)
[2024-04-16] MEDS: LOVENOX 40 MG SC (17:48)
[2024-04-16] MEDS: TOPROL XL 25 MG PO (21:17)
[2024-04-17] VITALS (28 sets, daily range): BP systolic 83–141; BP diastolic 59–91
[2024-04-17] MEDS: LR 1000 IV ×2 (01:00→10:52)
[2024-04-17] MEDS: ZOSYN 50 IV ×4 (01:01→17:07)
[2024-04-17 01:03] LABS: Glucose - Point of Care 98 mg/dl (70-99)
--- NOTE | 2024-04-17 02:32 | W.PN.UPDATE ---
Update Note
Progress Note Update
Reported by the nursing staff the patient had large amount of bloody bm. Stat h&h ordered, GI conveyor maintenance mechanic made a clark and abdomen CTA ordered.
Hgb level down from 13.7---->10.2 and down to 9.1 this am.
Blood consent signed, kept om the chart. Will monitor h&h and transfuse as needed.
- Will transfer to telemetry
[2024-04-17 03:08] LABS: % Basophils 0.1 % (0-2); % Eosinophils 0.4 % (0-6); % Immature Granulocytes 0.7 % (0-0.5); % Lymphocytes 23.3 % (20.5-51.1); % Monocytes 13.1 % (1.7-9.3); % Neutrophils 62.4 % (42.2-75.2); Absolute Immature Granulocytes 0.1 10^3/uL (0-0.05); Absolute Lymphocytes 2.3 10^3/uL (1.2-3.4); Absolute Monocytes 1.3 10^3/uL (0.1-0.6); Absolute Neutrophils 6.2 10^3/uL (1.4-6.5); Hematocrit 30.3 % (39.0-52.0); Hemoglobin 10.2 g/dL (13.0-18.0); Mean Corp Hgb Conc. 33.7 g/dL (33.0-37.0); Mean Corpuscular Hgb 31.7 pg (27.0-31.0); Mean Corpuscular Volume 94.1 fL (80.0-94.0); Mean Platelet Volume 9.6 fL (7.4-10.4); Nucleated Red Blood Cells % 0 % (-); Platelet Count 314 10^3/uL (130-400); Red Blood Cell Count 3.22 10^6/uL (4.70-6.10); Red Cell Dist. Width 14.8 % (11.5-14.5)
--- NOTE | 2024-04-17 03:57 | PTCARENOTE ---
pt started with 2 bloody bm's second One being bright red- reported to GI MD- MD ordered cbc type and cross and ct angio of abd- all completed- retail mortgage banker blood content obtained by retail mortgage banker. awaiting results from ct- repeat hgb 10.2. will redraw labs at 0600
--- NOTE | 2024-04-17 04:10 | PTCARENOTE ---
ct report reported to md- order for q6 h+h
[2024-04-17 05:42] LABS: Hematocrit 27.2 % (39.0-52.0); Hemoglobin 9.1 g/dL (13.0-18.0); Mean Corp Hgb Conc. 33.5 g/dL (33.0-37.0); Mean Corpuscular Hgb 31.7 pg (27.0-31.0); Mean Corpuscular Volume 94.8 fL (80.0-94.0); Mean Platelet Volume 9.8 fL (7.4-10.4); Platelet Count 281 10^3/uL (130-400); Red Blood Cell Count 2.87 10^6/uL (4.70-6.10); White Blood Cell Count 10.6 10^3/uL (4.8-10.8)
[2024-04-17 06:14] LABS: ALT (SGPT) 297 U/L (0-50); AST (SGOT) 177 U/L (17-59); Albumin 2.5 g/dl (3.5-5.0); Alkaline Phosphatase 580 U/L (38-126); Blood Urea Nitrogen 23 mg/dl (9-20); Calcium 8.2 mg/dl (8.4-10.2); Carbon Dioxide 27 mmol/L (22-30); Chloride 104 mmol/L (98-107); Estimated Creatinine Clearance 65 ml/min; Glucose 111 mg/dl (70-99); Potassium 4.6 mmol/L (3.5-5.1); Sodium 137 mmol/L (135-145); Total Protein 4.8 g/dl (6.3-8.2); eGFR > 60.00
--- NOTE | 2024-04-17 06:17 | W.PN.GI.CBS2 ---
Addendum entered and electronically signed by Meliton Chavarria MD 04/17/24 06:38:
Will proceed with repeat EGD/ERCP to treat bleeding. Get blood transfusion started now. NPO
Original Note:
Today's Communication / Plan
-
Passed 3 bloody BMs since 3am and BP dropped
S/P ERCP/sphincterotomy yesterday, likely bleeding from cautery
Transfuse PRBC and trend Hgb
Will discuss with Dr Cavazos
Assessment / Plan
-
Pt is a 63yo with hx CML with bone marrow transplant in 1995 with recurrence in 1998(off med since July with cardiac issues), prior [place] with prior CABG x3 with post-op pericardial tamponade with prior pericardiocentesis in August 2023, NIDDM on
Mounjaro with recent dose increased, GERD, HTN, diverticulitis, renal stone, cerebral aneurysm presents with chest/epigastric abdominal pain with radiation to back. Pt also admits to feeling of fever/chills with noted tachycardia on admission.
Labs noted with bili 3.1, AST 441, ALT 513, alk darien 763 with lipase of 55 and rise in WBC to 18,200 after admission. Imaging on admission with CT chest/abd/pelvis angio with no heart enlargement,no aortic aneurysm or dissection, CBD up to 10mm
with possible stone. Also noted 'nutmeg' liver with increased right heart pressure or hepatitis. 04/15/24 US with cholelithiasis without acute cholecystitis, CBD dilatation with obstructing cause, increased liver echogenicity c/w underlying
hepatocellular disease most common related to fatty liver, vessel appear patent. No anticoagulation prior to admission.
Impression:
CBD stone s/p ERCP 04/16
Rectal bleeding post ERCP
'nutmeg' liver with increased right heart pressure vs hepatitis//US with fatty liver
chronic Mounjaro use with recent dose increase and 65 lbs wt loss
other med problems:
--CML with prior bone marrow transplant 1995 with recurrence 1998-- off meds since August with cardiac issues
--pericardial tamponade with prior pericardiocentesis in August 2023
--UT/CAD with prior CABG x 01 Aug 2023
Subjective
Subjective
Date of Service: April 17, 2024
Passed BRBPR starting at 3am. Had some abd pain
Objective
Data Reviewed
Laboratory Data:
Laboratory Results
04/17/24 05:08
Laboratory Results
Total Bilirubin 4.0 mg/dl (0.2-1.3) H 04/17/24 05:08
AST 177 U/L (17-59) H 04/17/24 05:08
ALT 297 U/L (0-50) H 04/17/24 05:08
Alkaline Phosphatase 580 U/L (38-126) H 04/17/24 05:08
Lipase 55 U/L (23-300) 04/16/24 05:02
Vital Signs and I&O:
Vital Signs
Temp Pulse Resp BP Pulse Ox
97.7 F 96 16 113/71 98
04/17/24 03:28 04/17/24 03:28 04/17/24 03:28 04/17/24 03:28 04/17/24 03:28
I&O
04/15/24 04/16/24 04/17/24
06:59 06:59 06:59
Intake Total 450 / 450 700 / 700
Output Total 650 / 650 200 / 200
Balance -200 / -200 500 / 500
Physical Exam
Physical Exam
GI: Soft, Non Distended and Non Tender
--- NOTE | 2024-04-17 06:45 | PTCARENOTE ---
Dr Chavarria in to see pt- 1 order prbc's ordered- blood slip sent - pt has stephie npo and awaiting to go back to gi lab
--- NOTE | 2024-04-17 07:00 | PTCARENOTE ---
report received. patient with LGIB frequent bloody BMs, blood transfusion initiated, report given to GI nurse, patient transferred to GI suite for procedure.
--- NOTE | 2024-04-17 08:39 | W.PN.HOSP.TC ---
Today's Communication/Plan
-
NPO. IV fluids. Continue antibiotics. Follow H&H.
Assessment / Plan
Assessment / Plan
Patient with CAD s/p CABG thought secondary to Tasigna and complicated by pericardial effusion/tamponade s/p pericardiocentesis this year coming in with epigastric/chest pain radiating to back. ECG is non-ischemic. Trop negative x 2. CT shows
gall stones and a small CBD stone. Has elevated bilirubin with transaminitis. Picture is c/w choledocholithiasis. Possible cholecystitis with mild gall bladder inflammatory changes. Hemodynamically stable but significant pain.
PLAN:
Acute Choledocholithiasis with concern for biliary sepsis
Cholelithiasis without radiological evidence of acute cholecystitis
-Patient with ongoing abdominal pain. Acute cholecystitis hepatitis picture noted. Lipase is normal. Ultrasound of the abdomen shows choledocholithiasis and a mobile gallstone and concern of hepatic disease. MRI of the abdomen noted
- s/p ERCP and stone removal and biliary sphinctrotomy 04/16 but was complicated by bleeding from sphincterotomy site which was tx today successfully by epi injection, hemostatic clips ,cautery and subsequently a bilary stent was placed .Follow HH
. NPO for now
Acute blood loss anemia s/p 1PRBC transfusion 04/17. Follow HH
Cholelithiasis - lap darci once bleeding issues are settled.
CAD
- s/p asa 325, continue with aspirin if okay from proceduralist
- continue statin
DM II
- hold metformin x 48 hours and Mounjaro
- sliding scale insulin
CML-s/p bone marrow transplant 1995 followed by Gleevac treatment for 18 years and followed later by Tasigna treatment for 5 years which was stopped after CAD. Is currently on surveillance lab draws.
HTN -cw home meds
DVT PPX - lovenox sq
Code status - full code
DW RN
DW GI today
Total time spent on today's encounter was 52 minutes which included time spent in counseling the patient/family regarding diagnosis and treatment plan as listed above, goals of care, and symptom management. Case was discussed with nursing staff,
specialists, and care coordinators/case management. All labs and imaging personally reviewed by me. Remainder the time spent in detailed review of previous records, lab data, imaging, and other medical provider documentation.
Anticipated Discharge: > 48 hours
Subjective/Interval History
-
Date of Service: April 17, 2024
Patient seen post repeat ERCP and hemostasis attempt with ERCP this morning.
Patient currently with no nausea vomiting. He has vague abdominal discomfort. He had 2 bowel movements and there was a blood but nothing like it was yesterday evening.
Denies any fever or chills.
Denies any shortness of breath or chest pain. No dizziness.
No prior bleeding diathesis per pt
Objective Data
-
Labs:
Laboratory Results
04/17/24 04/17/24 04/17/24
02:53 05:07 05:08
WBC 10.0 10.6
Hgb 10.2 L D 9.1 L
Hct 30.3 L 27.2 L
Plt Count 314 D 281
Sodium 137
Potassium 4.6
Chloride 104
Carbon Dioxide 27
BUN 23 H
Creatinine 1.3
Glucose 111 H
Calcium 8.2 L
Total Bilirubin 4.0 H
AST 177 H
ALT 297 H
Alkaline Phosphatase 580 H
04/17/24 04/17/24
12:00 18:00
WBC
Hgb Pending Pending
Hct Pending Pending
Plt Count
Sodium
Potassium
Chloride
Carbon Dioxide
BUN
Creatinine
Glucose
Calcium
Total Bilirubin
AST
ALT
Alkaline Phosphatase
Vital Signs:
Vital Signs
Temp Pulse Resp BP Pulse Ox
98.1 F 96 20 101/66 98
04/17/24 07:19 04/17/24 07:19 04/17/24 07:19 04/17/24 07:19 04/17/24 06:40
I&O
04/16/24 04/17/24 04/18/24
06:59 06:59 06:59
Intake Total 450 / 450 700 / 700 0 / 0
Output Total 650 / 650 200 / 200
Balance -200 / -200 500 / 500 0 / 0
Review of Systems
-
Constitutional: Denies Fever
Respiratory: Denies Trouble Breathing
Cardiac: Denies Chest Pain
Abdomen/GI: Reports Abdominal Pain; Denies Nausea or Vomiting
Neuro: Denies Dizzy
Physical Exam
-
HEENT: Moist Mucous Membranes
Respiratory: Clear to Auscultation and Non Labored Respirations; Negative Accessory Resp Muscle Use
Cardiac: Regular Rhythm, S1/S2 and Tachycardic
GI: Soft, Nondistended, Normal Bowel Sounds and Tender (some discomfort in epigastric area but no rebound or guarding or rigidity)
Neuro: AO x 3
Data Reviewed
-
Labs: Labs Reviewed by me
[2024-04-17 09:37] LABS: Glucose - Point of Care 131 mg/dl (70-99)
[2024-04-17] MEDS: LIPITOR PO (11:04)
[2024-04-17] MEDS: PROTONIX IV 40 MG IV (11:14)
[2024-04-17] MEDS: NSS (PRESERVATIVE FREE) 10 ML IV (11:14)
--- NOTE | 2024-04-17 11:21 | PTCARENOTE ---
Pt arrived to 2S via stretcher, slid to bed independently. Full assessment completed. Telemetry applied. IVF infusing per order, IV abx provided. Pt educated on NPO order and to ring for assistance getting OOB, verbalized understanding. Bed locked
and in the lowest position, safety maintained. Oriented to room and call mcclain, spouse at bedside.
[2024-04-17 12:09] LABS: Hematocrit 29.4 % (39.0-52.0); Hemoglobin 10.1 g/dL (13.0-18.0)
[2024-04-17 12:25] LABS: Glucose - Point of Care 130 mg/dl (70-99)
--- NOTE | 2024-04-17 12:27 | PTCARENOTE ---
RN called into pts bathroom. Pt standing over sink stating ' im dizzy'. Large bright red BM noted in the toilet bowel. Pt ambulated back to bed with assistance from NSG staff. Pt continuing to feel 'dizzy' initially laying in bed. Manual BP 112/88,
HR 129. HR noted in 140s while patient in the bathroom. Pt stating feeling 'weak' while laying in bed after several mins, no longer feeling 'dizzy'. Dr Chavarria and Dr Lemon notified. Orders received. Care remains ongoing.
[2024-04-17] MEDS: ROXICODONE 5 MG PO (13:33)
--- NOTE | 2024-04-17 14:35 | W.PN.GS2 ---
Today's Communication / Plan
-
`
Assessment / Plan
-
Assessment: 63-year-old male initially admitted with choledocholithiasis; cholelithiasis but no evidence of acute calculus cholecystitis -contrast visualized within gallbladder on subsequent CT imaging ruling out cystic duct obstruction
PPD #1 status post ERCP sphincterotomy and stone removal
Post ERCP sphincterotomy bleed
1 unit PRBC transfusion
PPD #0 ERCP, epi injection, cautery and biliary stent placement
AF, normotensive, sinus tachycardia 100-110s
Plan: Continue serial H&H and monitoring for signs of ongoing blood loss
GI following
Cholecystectomy on hold -possibly later in hospitalization after stabilizes post ERCP bleed
Will follow
Subjective Data
-
Date of Service: April 17, 2024
Patient seen and examined. at bedside.
Overnight events reviewed.
Sphincterotomy upper GI bleed
Taken back for ERCP, injection, cautery and biliary stent placement
He has had a couple bloody stools since repeat endoscopy this a.m. but less frequent than prior
No abdominal pain
Objective Data
-
Intake and Output
04/16/24 04/17/24 04/18/24
06:59 06:59 06:59
Intake Total 450 / 450 700 / 700 750 / 750
Output Total 650 / 650 200 / 200
Balance -200 / -200 500 / 500 750 / 750
Intake:
Oral fluids 0 / 0
IV fluids (Total) 400 / 400 600 / 600 250 / 250
LR 100 / 100
NSS 250 / 250
IV piggybacks 50 / 50 100 / 100
Blood Products 250 / 250
Packed red blood cells 250 / 250
Blood Product Amount Infused ( 250 / 250
mL)
Packed Rbc Leukoreduced Unit 250 / 250
[id number]
Output:
Urine, Voided 650 / 650 200 / 200
Other:
Number of unmeasured liquid
stools
Rectum 3
Vital Signs
Temp Pulse Resp BP Pulse Ox
97.9 F 115 16 119/68 97
04/17/24 14:25 04/17/24 14:25 04/17/24 14:25 04/17/24 14:25 04/17/24 14:25
Lab Results
04/17/24 05:08
Calcium 8.2 mg/dl (8.4-10.2) L 04/17/24 05:08
Total Bilirubin 4.0 mg/dl (0.2-1.3) H 04/17/24 05:08
Direct Bilirubin 2.2 mg/dl (0.0-0.4) H 04/16/24 05:02
AST 177 U/L (17-59) H 04/17/24 05:08
ALT 297 U/L (0-50) H 04/17/24 05:08
Alkaline Phosphatase 580 U/L (38-126) H 04/17/24 05:08
Total Protein 4.8 g/dl (6.3-8.2) L D 04/17/24 05:08
Albumin 2.5 g/dl (3.5-5.0) L 04/17/24 05:08
Physical Exam
-
NAD AAOx3
ABD soft, nondistended, nontender on palpation
[2024-04-17] MEDS: DILAUDID 1 MG IV (15:19)
--- NOTE | 2024-04-17 16:34 | PTCARENOTE ---
Pt continues with tachycardia into the 140s with ambulation, 110s-120s resting. Per pt, bloody BMs are lessening but pt continues to feel dizzy/ weak with ambulation. PRN pain medication provided for abdominal pain as ordered. Pt resting in bed at
this time. Dr Lemon aware. Care remains ongoing.
[2024-04-17 17:39] LABS: Glucose - Point of Care 134 mg/dl (70-99)
[2024-04-17 18:28] LABS: Hematocrit 25.7 % (39.0-52.0); Hemoglobin 8.7 g/dL (13.0-18.0)
[2024-04-17] MEDS: TOPROL XL 25 MG PO (21:46)
--- NOTE | 2024-04-17 22:13 | PTCARENOTE ---
House provider, Lei GILL, contacted after patient c/o of sudden increased pain to R chest and under rib cage, R epigastric area. ! unit of PRBC infusing at this time, patient lying in bed. EKG done, provider up to see patient
immediately. EKG sinus tachycardia. Order for famotidine placed and administered, see MAR. follow up labs ordered. Assessment on going.
[2024-04-17] MEDS: PEPCID 20 MG IV (22:45)
[2024-04-17] MEDS: NSS (PRESERVATIVE FREE) 8 ML IV (22:46)
--- NOTE | 2024-04-17 22:50 | W.PN.UPDATE ---
Update Note
Progress Note Update
Patient complained of epigastric pain and RT chest discomfort. Non radiating and described as discomfort. Patient with NAD, Vital signs with normal limits and denied SOB. .
EKG done.
Patient currently receiving blood transfusion and result of blood test will be inaccurate at this time. Will get chest x-ray.
Will order famotidine/ morphine and recheck on the patient.
Patient felt some relief but still with some pain. He is taking Nexium at home which is helping with the GERD symptoms per patient, will give one time dose of pantoprazole.
Recheck on the patient he is comfortable sleeping.
[2024-04-18] VITALS (10 sets, daily range): BP systolic 108–159; BP diastolic 55–101
--- NOTE | 2024-04-18 00:15 | PTCARENOTE ---
1 unit PRBC transfused per order, pt tolerated well.
[2024-04-18] MEDS: LR 1000 IV (00:16)
[2024-04-18 00:18] LABS: Glucose - Point of Care 160 mg/dl (70-99)
[2024-04-18] MEDS: ZOSYN 50 IV ×5 (00:27→23:05)
--- NOTE | 2024-04-18 00:35 | PTCARENOTE ---
patient c/o of discomfort to R chest to R diaphragm area again, House Provider notified. Orders placed, see MAR.
[2024-04-18] MEDS: MORPHINE SULFATE 1 MG IV (00:54)
[2024-04-18] MEDS: PROTONIX IV 40 MG IV ×2 (03:34→08:36)
[2024-04-18] MEDS: NSS (PRESERVATIVE FREE) 10 ML IV ×2 (03:34→08:36)
[2024-04-18 03:46] LABS: Hematocrit 31.2 % (39.0-52.0); Hemoglobin 10.8 g/dL (13.0-18.0)
[2024-04-18 06:24] LABS: Glucose - Point of Care 133 mg/dl (70-99)
[2024-04-18 08:33] LABS: Hematocrit 24.8 % (39.0-52.0); Hemoglobin 8.7 g/dL (13.0-18.0); Mean Corp Hgb Conc. 35.1 g/dL (33.0-37.0); Mean Corpuscular Hgb 31.2 pg (27.0-31.0); Mean Corpuscular Volume 88.9 fL (80.0-94.0); Mean Platelet Volume 10.6 fL (7.4-10.4); Platelet Count 261 10^3/uL (130-400); Red Blood Cell Count 2.79 10^6/uL (4.70-6.10); Red Cell Dist. Width 16.5 % (11.5-14.5); White Blood Cell Count 17.5 10^3/uL (4.8-10.8)
[2024-04-18] MEDS: LIPITOR 80 MG PO (08:36)
[2024-04-18 08:55] LABS: ALT (SGPT) 256 U/L (0-50); AST (SGOT) 192 U/L (17-59); Alkaline Phosphatase 654 U/L (38-126); Blood Urea Nitrogen 30 mg/dl (9-20); Calcium 8.6 mg/dl (8.4-10.2); Carbon Dioxide 23 mmol/L (22-30); Chloride 104 mmol/L (98-107); Estimated Creatinine Clearance 77 ml/min; Glucose 134 mg/dl (70-99); Potassium 3.9 mmol/L (3.5-5.1); Sodium 139 mmol/L (135-145); Total Protein 5.4 g/dl (6.3-8.2); eGFR > 60.00
--- NOTE | 2024-04-18 09:12 | W.PN.GI.CBS2 ---
Today's Communication / Plan
-
Bleeding appears to be slowing down
Hgb from 8.7 up to 10.8 after 1 unit PRBC, now back down to 8.7
Monitor BMs
Check Hgb this evening
LFTs trending down s/p CBD stone extraction as well as stent placement yesterday
Cont protonix for reflux sx overnight
Assessment / Plan
-
Pt is a 63yo with hx CML with bone marrow transplant in 1995 with recurrence in 1998(off med since July with cardiac issues), prior [place] with prior CABG x3 with post-op pericardial tamponade with prior pericardiocentesis in August 2023, NIDDM on
Mounjaro with recent dose increased, GERD, HTN, diverticulitis, renal stone, cerebral aneurysm presents with chest/epigastric abdominal pain with radiation to back. Pt also admits to feeling of fever/chills with noted tachycardia on admission.
Labs noted with bili 3.1, AST 441, ALT 513, alk darien 763 with lipase of 55 and rise in WBC to 18,200 after admission. Imaging on admission with CT chest/abd/pelvis angio with no heart enlargement,no aortic aneurysm or dissection, CBD up to 10mm
with possible stone. Also noted 'nutmeg' liver with increased right heart pressure or hepatitis. 04/15/24 US with cholelithiasis without acute cholecystitis, CBD dilatation with obstructing cause, increased liver echogenicity c/w underlying
hepatocellular disease most common related to fatty liver, vessel appear patent. No anticoagulation prior to admission.
04/17 PRBC 2 units
Impression:
CBD stone s/p ERCP 04/16
Rectal bleeding post ERCP s/p epi, cautery, stent, clip 04/17
'nutmeg' liver with increased right heart pressure vs hepatitis//US with fatty liver
chronic Mounjaro use with recent dose increase and 65 lbs wt loss
other med problems:
--CML with prior bone marrow transplant 1995 with recurrence 1998-- off meds since August with cardiac issues
--pericardial tamponade with prior pericardiocentesis in August 2023
--[place]/CAD with prior CABG x 01 Aug 2023
Subjective
Subjective
Date of Service: April 18, 2024
Continues to pass bloody BMs but volume seemed less last night. Rec'd 1 unit PRBC for Hgb 8.7
Objective
Data Reviewed
Laboratory Data:
Laboratory Results
04/18/24 20:30
04/18/24 07:38
Laboratory Results
Total Bilirubin 2.0 mg/dl (0.2-1.3) H D 04/18/24 07:38
AST 192 U/L (17-59) H 04/18/24 07:38
ALT 256 U/L (0-50) H 04/18/24 07:38
Alkaline Phosphatase 654 U/L (38-126) H 04/18/24 07:38
Lipase 55 U/L (23-300) 04/16/24 05:02
Vital Signs and I&O:
Vital Signs
Temp Pulse Resp BP Pulse Ox
97.3 F 92 14 108/55 95
04/18/24 07:10 04/18/24 07:10 04/18/24 07:10 04/18/24 07:10 04/18/24 07:10
I&O
04/17/24 04/18/24 04/19/24
06:59 06:59 06:59
Intake Total 700 / 700 1700 / 1700
Output Total 200 / 200 600 / 600
Balance 500 / 500 1100 / 1100
Physical Exam
Physical Exam
GI: Soft, Non Distended and Non Tender
--- NOTE | 2024-04-18 10:33 | W.PN.GS2 ---
Addendum entered and electronically signed by Zach Sanchez MD 04/18/24 10:58:
Patient feeling a bit better. Bloody stools less frequent.
Epigastric abdominal discomfort
AFVSS
ABD: Soft, mild tenderness palpation epigastrium. No rebound rigidity or guarding.
A/P: Timing of cholecystectomy still to be determined but likely during his index hospitalization
Await complete stabilization of H&H/post ERCP bleed
Original Note:
Today's Communication / Plan
-
clears
Assessment / Plan
-
Assessment: 63-year-old male initially admitted with choledocholithiasis and concern for possible ascending cholangitis; cholelithiasis but no evidence of acute calculus cholecystitis -contrast visualized within gallbladder on subsequent CT imaging
ruling out cystic duct obstruction
PPD #2 ERCP sphincterotomy and stone removal
PPD #1 ERCP epi, cautery, stent and clip placement for bleed
s/p 2 units PRBC transfusion
Afebrile, tachycardia overnight, now resolved, BP stable
Leukocytosis initially resolved now elevated again today to 17.5
Acute blood loss anemia, h/h being trended
LFTs improving
Plan:
Continue serial H&H and monitoring for signs of ongoing blood loss
GI following
Trial of clears today
Cholecystectomy on hold -possibly later in hospitalization after stabilizes post ERCP bleed
Will follow
Subjective Data
-
Date of Service: April 18, 2024
Patient seen and examined at bedside with Dr. Sanchez. Still having some red blood in stools but not stooling as frequently. Tight discomfort across the upper abdomen. Denies n/v. Case discussed with Dr. Lemon and Dr. Chavarria
Objective Data
-
Intake and Output
04/17/24 04/18/24 04/19/24
06:59 06:59 06:59
Intake Total 700 / 700 1700 / 1700
Output Total 200 / 200 600 / 600
Balance 500 / 500 1100 / 1100
Intake:
Oral fluids 0 / 0
IV fluids (Total) 600 / 600 950 / 950
LR 100 / 100
NSS 250 / 250
IV piggybacks 100 / 100
Blood Products 250 / 250
Packed red blood cells 250 / 250
Blood Product Amount Infused ( 500 / 500
mL)
Packed Rbc Leukoreduced Unit 250 / 250
[id number]
Packed Rbc Leukoreduced Unit 250 / 250
[id number]
Output:
Urine, Voided 200 / 200 600 / 600
Other:
Number of approximated MODERATE 3
amounts of urine
Number of unmeasured liquid
stools
Rectum 3
Vital Signs
Temp Pulse Resp BP Pulse Ox
97.3 F 92 14 108/55 95
04/18/24 07:10 04/18/24 07:10 04/18/24 07:10 04/18/24 07:10 04/18/24 07:10
Lab Results
04/18/24 20:30
04/18/24 07:38
Calcium 8.6 mg/dl (8.4-10.2) 04/18/24 07:38
Total Bilirubin 2.0 mg/dl (0.2-1.3) H D 04/18/24 07:38
Direct Bilirubin 2.2 mg/dl (0.0-0.4) H 04/16/24 05:02
AST 192 U/L (17-59) H 04/18/24 07:38
ALT 256 U/L (0-50) H 04/18/24 07:38
Alkaline Phosphatase 654 U/L (38-126) H 04/18/24 07:38
Total Protein 5.4 g/dl (6.3-8.2) L 04/18/24 07:38
Albumin 3.0 g/dl (3.5-5.0) L 04/18/24 07:38
Physical Exam
-
NAD AAOx3
ABD soft, nondistended, nontender on palpation
Pale
Patient has a domínguez catheter: No
Patient has a central line: No
--- NOTE | 2024-04-18 10:49 | W.PN.HOSP.TC ---
Today's Communication/Plan
-
Diet per GI
Follow H&H
Consult hematology
Assessment / Plan
Assessment / Plan
Patient with CAD s/p CABG thought secondary to Tasigna and complicated by pericardial effusion/tamponade s/p pericardiocentesis this year coming in with epigastric/chest pain radiating to back. ECG is non-ischemic. Trop negative x 2. CT shows
gall stones and a small CBD stone. Has elevated bilirubin with transaminitis. Picture is c/w choledocholithiasis. Possible cholecystitis with mild gall bladder inflammatory changes. Hemodynamically stable but significant pain.
PLAN:
Acute Choledocholithiasis with concern for biliary sepsis
Cholelithiasis without radiological evidence of acute cholecystitis
-Patient with ongoing abdominal pain. Acute cholecystitis hepatitis picture noted. Lipase is normal. Ultrasound of the abdomen shows choledocholithiasis and a mobile gallstone and concern of hepatic disease. MRI of the abdomen noted
- s/p ERCP and stone removal and biliary sphinctrotomy 04/16 but was complicated by bleeding from sphincterotomy site which was tx 04/17 successfully by epi injection, hemostatic clips ,cautery and subsequently a bilary stent was placed .Follow HH
Pt with some small amount of bloody/bright red stools but compared to prior much improved.
GI planning on clear liquids today
Acute blood loss anemia s/p 2 PRBC transfusion so far. Follow HH
Cholelithiasis - lap darci once bleeding issues are settled.
CAD
- s/p asa 325, continue with aspirin if okay from proceduralist
- continue statin
DM II
- hold metformin and Mounjaro
- sliding scale insulin
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 Is currently on surveillance lab draws. Due to prolonged course of bleeding from
procedural site will ask hematology to look into see if there is any bleeding diathesis or factor deficiency. Consult hematology
HTN -cw home meds
DVT PPX - lovenox sq
Code status - full code
DW RN
DW GI today
Total time spent on today's encounter was 52 minutes which included time spent in counseling the patient/family regarding diagnosis and treatment plan as listed above, goals of care, and symptom management. Case was discussed with nursing staff,
specialists, and care coordinators/case management. All labs and imaging personally reviewed by me. Remainder the time spent in detailed review of previous records, lab data, imaging, and other medical provider documentation.
Anticipated Discharge: > 48 hours
Subjective/Interval History
-
Date of Service: April 18, 2024
He had couple of bloody/bright red stools yesterday evening. He was also experiencing abdominal pain which got better with the pain medication. No nausea vomiting. He feels abdominal pain is better.
Objective Data
-
Labs:
Laboratory Results
04/18/24 04/18/24 04/18/24
02:59 07:38 08:30
WBC 17.5 H
Hgb 10.8 L D 8.7 L Cancelled
Hct 31.2 L 24.8 L Cancelled
Plt Count 261
Sodium 139
Potassium 3.9
Chloride 104
Carbon Dioxide 23
BUN 30 H
Creatinine 1.1
Glucose 134 H
Calcium 8.6
Total Bilirubin 2.0 H D
AST 192 H
ALT 256 H
Alkaline Phosphatase 654 H
04/18/24 04/18/24 04/18/24
14:30 18:00 20:30
WBC
Hgb Cancelled Pending Cancelled
Hct Cancelled Cancelled
Plt Count
Sodium
Potassium
Chloride
Carbon Dioxide
BUN
Creatinine
Glucose
Calcium
Total Bilirubin
AST
ALT
Alkaline Phosphatase
Vital Signs:
Vital Signs
Temp Pulse Resp BP Pulse Ox
97.3 F 92 14 108/55 95
04/18/24 07:10 04/18/24 07:10 04/18/24 07:10 04/18/24 07:10 04/18/24 07:10
I&O
04/17/24 04/18/24 04/19/24
06:59 06:59 06:59
Intake Total 700 / 700 1700 / 1700
Output Total 200 / 200 600 / 600
Balance 500 / 500 1100 / 1100
Review of Systems
-
Respiratory: Denies Trouble Breathing
Cardiac: Denies Chest Pain
Neuro: Denies Dizzy
Physical Exam
-
General: No Apparent Distress
HEENT: Moist Mucous Membranes
Respiratory: Non Labored Respirations; Negative Accessory Resp Muscle Use
Cardiac: Regular Rhythm and S1/S2
GI: Soft, Nontender, Nondistended and Normal Bowel Sounds
Neuro: AO x 3
Data Reviewed
-
Labs: Labs Reviewed by me
--- NOTE | 2024-04-18 12:28 | W.PN.UPDATE ---
Update Note
Progress Note Update
Consult received after rounds. Chart reviewed, noted for h/o CML in , treated with transplant, then TKI therapy for relapse in late . He was recently on Tasigna, stopped in spring 2023 due to CAD and [place] (a possible side effect of Tasigna).
He's been off CML treatment, on surveillance only at this time. He takes ASA 81mg for CAD daily. He was admitted 04/15/23 pm with chest pain, and was given ASA 325mg in the ER. He was found to have choledocholithiasis, underwent ERCP with
sphincterotomy, complicated by post-procedure bleeding, not explained by platelet count of coags. He required repeat endoscopy for control of bleeding, including epinephrine injection and clipping.
Hematology consult to comment on bleeding.
CML unlikely to be contributory, platelet count and coags are normal. Suspect platelet dysfunction is secondary to ASA.
Hold ASA and other anticoagulants.
Would transfuse platelets if ongoing bleeding.
Full c/s to follow tomorrow.
[2024-04-18 12:35] LABS: Glucose - Point of Care 184 mg/dl (70-99)
[2024-04-18] MEDS: LR IV (12:53)
--- NOTE | 2024-04-18 14:59 | CM ---
Patient seen at bedside. Patient states that he lives with his in a [place] community. Patient has no dme at home. Patient PCP is Dr. Rico Lopez andhe uses [facility] in [facility]. Patient does not anticipate any discharge planning needs at this
time. CM will continue to follow for discharge planning needs.
Plan; home with no needs anticipated.
[2024-04-18 17:18] LABS: Glucose - Point of Care 112 mg/dl (70-99)
[2024-04-18 18:04] LABS: Hemoglobin 8.4 g/dL (13.0-18.0)
[2024-04-18] MEDS: TOPROL XL 25 MG PO (21:00)
[2024-04-18] MEDS: FLUSH (NSS) 1 FLUSH IV (21:01)
[2024-04-18 21:06] LABS: Glucose - Point of Care 118 mg/dl (70-99)
[2024-04-18] MEDS: BENADRYL 25 MG PO (21:50)
[2024-04-19 03:13] VITALS: BP 133/80
[2024-04-19] MEDS: ZOSYN 50 IV ×4 (05:38→23:49)
[2024-04-19 07:05] VITALS: BP 124/72
[2024-04-19 07:51] LABS: Hematocrit 23.5 % (39.0-52.0); Hemoglobin 8.3 g/dL (13.0-18.0); Mean Corp Hgb Conc. 35.3 g/dL (33.0-37.0); Mean Corpuscular Hgb 31.1 pg (27.0-31.0); Mean Platelet Volume 10.9 fL (7.4-10.4); Platelet Count 334 10^3/uL (130-400); Red Blood Cell Count 2.67 10^6/uL (4.70-6.10); White Blood Cell Count 22.8 10^3/uL (4.8-10.8)
[2024-04-19] MEDS: NSS (PRESERVATIVE FREE) 10 ML IV ×2 (07:59→20:30)
[2024-04-19] MEDS: PROTONIX IV 40 MG IV ×2 (07:59→20:29)
[2024-04-19] MEDS: LIPITOR 80 MG PO (07:59)
[2024-04-19 08:04] LABS: ALT (SGPT) 222 U/L (0-50); AST (SGOT) 93 U/L (17-59); Albumin 3.2 g/dl (3.5-5.0); Alkaline Phosphatase 557 U/L (38-126); Blood Urea Nitrogen 22 mg/dl (9-20); Calcium 8.6 mg/dl (8.4-10.2); Carbon Dioxide 26 mmol/L (22-30); Chloride 103 mmol/L (98-107); Estimated Creatinine Clearance 70 ml/min; Glucose 88 mg/dl (70-99); Potassium 4.2 mmol/L (3.5-5.1); Sodium 139 mmol/L (135-145); Total Bilirubin 1.3 mg/dl (0.2-1.3); Total Protein 5.5 g/dl (6.3-8.2); eGFR > 60.00
[2024-04-19 08:07] LABS: Glucose - Point of Care 96 mg/dl (70-99)
--- NOTE | 2024-04-19 09:18 | W.PN.GI.CBS2 ---
Today's Communication / Plan
-
Bleeding appears to have stopped, no further BM
Trend Hgb, 8.7-->8.4-->8.3, appears to be stailizing
LFTs improving post ERCP, drainage pus/stones and stent placement as part of treatment for bleeding
If no further bleeding and Hgb stable, should be OK for cholecystectomy from GI standpoint in couple days
Assessment / Plan
-
Pt is a 63yo with hx CML with bone marrow transplant in 1995 with recurrence in 1998(off med since July with cardiac issues), prior SC with prior CABG x3 with post-op pericardial tamponade with prior pericardiocentesis in August 2023, NIDDM on
Mounjaro with recent dose increased, GERD, HTN, diverticulitis, renal stone, cerebral aneurysm presents with chest/epigastric abdominal pain with radiation to back. Pt also admits to feeling of fever/chills with noted tachycardia on admission.
Labs noted with bili 3.1, AST 441, ALT 513, alk darien 763 with lipase of 55 and rise in WBC to 18,200 after admission. Imaging on admission with CT chest/abd/pelvis angio with no heart enlargement,no aortic aneurysm or dissection, CBD up to 10mm
with possible stone. Also noted 'nutmeg' liver with increased right heart pressure or hepatitis. 04/15/24 US with cholelithiasis without acute cholecystitis, CBD dilatation with obstructing cause, increased liver echogenicity c/w underlying
hepatocellular disease most common related to fatty liver, vessel appear patent. No anticoagulation prior to admission.
04/17 PRBC 2 units
04/18 Platelet tranfusion
Impression:
CBD stone s/p ERCP 04/16
Rectal bleeding post ERCP s/p epi, cautery, stent, clip 04/17
'nutmeg' liver with increased right heart pressure vs hepatitis//US with fatty liver
chronic Mounjaro use with recent dose increase and 65 lbs wt loss
other med problems:
--CML with prior bone marrow transplant 1995 with recurrence 1998-- off meds since August with cardiac issues
--pericardial tamponade with prior pericardiocentesis in August 2023
--SC/CAD with prior CABG x 01 Aug 2023
Subjective
Subjective
Date of Service: April 19, 2024
No further BM overnight
Objective
Data Reviewed
Laboratory Data:
Laboratory Results
04/19/24 05:09
Laboratory Results
Total Bilirubin 1.3 mg/dl (0.2-1.3) 04/19/24 05:09
AST 93 U/L (17-59) H 04/19/24 05:09
ALT 222 U/L (0-50) H 04/19/24 05:09
Alkaline Phosphatase 557 U/L (38-126) H 04/19/24 05:09
Lipase 55 U/L (23-300) 04/16/24 05:02
Vital Signs and I&O:
Vital Signs
Temp Pulse Resp BP Pulse Ox
97.5 F 75 16 124/72 97
04/19/24 07:05 04/19/24 07:05 04/19/24 07:05 04/19/24 07:05 04/19/24 08:00
I&O
04/18/24 04/19/24 04/20/24
06:59 06:59 06:59
Intake Total 1700 / 1700 2814 / 2814
Output Total 600 / 600 950 / 950
Balance 1100 / 1100 1864 / 1864
Physical Exam
Physical Exam
GI: Soft, Non Distended and Non Tender
--- NOTE | 2024-04-19 09:55 | W.PN.GS2 ---
Today's Communication / Plan
-
Trend labs
Assessment / Plan
-
Assessment: 63-year-old male initially admitted with choledocholithiasis; cholelithiasis but no evidence of acute calculus cholecystitis -contrast visualized within gallbladder on subsequent CT imaging ruling out cystic duct obstruction
PPD #3 ERCP sphincterotomy and stone removal
PPD #3 ERCP epi, cautery, stent and clip placement for bleeding
s/p 2 units PRBC transfusion and 1 platelet transfusion
Afebrile, tachycardia overnight, now resolved, BP stable
Leukocytosis present
Acute blood loss anemia, h/h being trended. ASA on hold
LFTs improving
Plan:
Continue serial H&H and monitoring for signs of ongoing blood loss. Check coags at next blood draw
May need TXA if bleeding continues. Hematology following.
GI following
Continue on clears
Cholecystectomy on hold - Tentative lap darci tomorrow if stabilized post ERCP bleed
Will follow
Subjective Data
-
Date of Service: April 19, 2024
Patient's seen and examined at bedside with Dr. Philip. Jamil n/v. No bloody bm's today, last BM was yesterday. Pain improved to abdomen. Some epigastric discomfort persists.
Objective Data
-
Intake and Output
04/18/24 04/19/24 04/20/24
06:59 06:59 06:59
Intake Total 1700 / 1700 2814 / 2814
Output Total 600 / 600 950 / 950
Balance 1100 / 1100 1864 / 1864
Intake:
Oral fluids 2039
IV fluids (Total) 950 / 950
NSS 250 / 250
IV piggybacks 200 / 200
Blood Products 250 / 250
Packed red blood cells 250 / 250
Blood products 287 / 287
Blood Product Amount Infused ( 500 / 500 287 / 287
mL)
Packed Rbc Leukoreduced Unit 250 / 250
[id number]
Packed Rbc Leukoreduced Unit 250 / 250
[id number]
Pathogen Redu Plt Leukored /
Unit [id number]
Output:
Urine, Voided 600 / 600 950 / 950
Other:
Number of approximated MODERATE 3 2
amounts of urine
Vital Signs
Temp Pulse Resp BP Pulse Ox
97.5 F 75 16 124/72 97
04/19/24 07:05 04/19/24 07:05 04/19/24 07:05 04/19/24 07:05 04/19/24 08:00
Lab Results
04/19/24 05:09
Calcium 8.6 mg/dl (8.4-10.2) 04/19/24 05:09
Total Bilirubin 1.3 mg/dl (0.2-1.3) 04/19/24 05:09
Direct Bilirubin 2.2 mg/dl (0.0-0.4) H 04/16/24 05:02
AST 93 U/L (17-59) H 04/19/24 05:09
ALT 222 U/L (0-50) H 04/19/24 05:09
Alkaline Phosphatase 557 U/L (38-126) H 04/19/24 05:09
Total Protein 5.5 g/dl (6.3-8.2) L 04/19/24 05:09
Albumin 3.2 g/dl (3.5-5.0) L 04/19/24 05:09
Physical Exam
-
NAD AAOx3
ABD soft, nondistended, nontender
Pale
Patient has a domínguez catheter: No
Patient has a central line: No
[2024-04-19 10:55] VITALS: BP 155/86
[2024-04-19] MEDS: XANAX 0.5 MG PO (11:10)
--- NOTE | 2024-04-19 11:55 | CON.ONC ---
Impression
Impression
Likely bleeding was secondary to endoscopy, patient reports resolution of bleeding after repeat endoscopy
Patient reports no andreas blood per rectum in the last 24 hours
CML unlikely to be contributory, platelet count within normal limits. Coag studies pending. May have component of platelet dysfunction secondary to aspirin
Plan
Plan
Recommend holding aspirin and other anticoagulants
Consider transfusion of platelets if ongoing bleeding continues
Daily CBC with differential
Follows hematology oncology at [facility], will defer to them regarding ongoing CML management once discharged
Patient History
History of Present Illness
63-year-old male past medical history of CML, status post bone marrow transplant, on treatment since the . Previously treated with Gleevec. Patient was recently on Tasigna, this was stopped in the spring due to CAD and MD which was attributed
to the medication. He has been off CML treatment and on surveillance only since this time. Reports taking aspirin 81 mg for CAD. Patient was admitted 04/15/2023 with complaints of chest pain, was given 325 aspirin and found to have
choledocholithiasis. Patient underwent ERCP with sphincterotomy which was complicated by postprocedural bleeding. Patient reports he had a repeat endoscopy which controlled his bleeding, received epinephrine injection and clipping. Patient
reports resolution of bleeding at this time. Has not noticed any bleeding for the past 24 hours. Hematology was consulted to comment on bleeding.
Past-Medical/Surgical History
Bone marrow transplant, ERCP x 2
Patient Medication
�Medication �Instructions �Recorded �Confirmed �Last Taken �Type
esomeprazole magnesium 40 mg 40 mg PO DAILY Gastrointestinal 12/01/12 04/16/24 08/28/23 08:00 History
capsule,delayed release (Nexium) Issue
metformin 500 mg tablet 500 mg PO DAILY Diabetes 03/29/20 04/16/24 09/15/23 17:00 History
tirzepatide 5 mg/0.5 mL 7.5 mg SC SETHI Diabetes 08/14/23 04/16/24 08/08/23 History
subcutaneous pen injector
(Mounjaro)
atorvastatin 80 mg tablet 80 mg PO DAILY High Cholesterol 08/20/23 04/16/24 09/15/23 18:00 History
acetaminophen 325 mg tablet 650 mg (2 x 325 mg) PO Q4HPRN PRN 09/03/23 04/16/24 09/15/23 18:00 Rx
mild pain,headache,temp >101F #0
tabs
aspirin 81 mg tablet,delayed 81 mg PO HS 04/16/24 04/16/24 Unknown History
release
metoprolol succinate 25 mg 25 mg PO QPM 04/16/24 04/16/24 Unknown History
tablet,extended release 24 hr
(Toprol XL)
multivitamin with minerals-folic 2 tab PO DAILY 04/16/24 04/16/24 Unknown History
acid 80 mcg chewable tablet
zolpidem 10 mg tablet (Ambien) 10 mg PO HSPRN PRN sleep 04/16/24 04/16/24 Unknown History
Active Medications
Generic Name Dose Route Start Last Admin
Trade Name Freq PRN Reason Stop Dose Admin
Acetaminophen 650 mg 04/16/24 01:48
Acetaminophen 325 Mg Tablet PO 05/14/24 01:47
Q4HPRN PRN
mild pain/CATHERINE/temp> 100.4F
Alprazolam 0.5 mg 04/19/24 11:04 04/19/24 11:10
Alprazolam 0.5 Mg Tablet PO 05/17/24 11:03 0.5 mg
Q6HPRN PRN Administration
anxiety
Atorvastatin Calcium 80 mg 04/16/24 08:00 04/19/24 07:59
Atorvastatin (Lipitor) 80 Mg Tablet PO 05/14/24 07:59 80 mg
DAILY OLGA Administration
Bisacodyl 10 mg 04/16/24 01:48
Bisacodyl 10 Mg Rectal Suppository RECTAL 05/14/24 01:47
[id number] PRN
constipation
Dextrose 12.5 grams 04/16/24 02:00
Dextrose 50% (0.5 Grams/Ml) 50 Ml Syringe IV 05/14/24 01:59
[id number] PRN
hypoglycemia
Protocol
Enoxaparin Sodium 40 mg 04/16/24 18:00 04/16/24 17:48
Enoxaparin Sodium 40 Mg/0.4 Ml Syringe SC 05/14/24 17:59 40 mg
QPM OLGA Administration
Glucagon 1 mg 04/16/24 02:00
Glucagon 1 Mg Vial IM 05/14/24 01:59
PRN PRN
hypoglycemia - no IV access
Protocol
Hydromorphone HCl 1 mg 04/16/24 01:48 04/17/24 15:19
Hydromorphone 1 Mg/Ml Carpuject IV 04/30/24 01:47 1 mg
Q4HPRN PRN Administration
severe pain
Piperacillin Sod/Tazobactam Sod 3.375 gram in 50 mls @ 100 mls/hr 04/16/24 06:00 04/19/24 11:10
Zosyn IV 50 mls
Q6H OLGA Administration
Insulin Aspart 0 units 04/18/24 11:57 04/19/24 08:07
Insulin Aspart Low Resistance 300 Units/3 Ml Pen.Injctr SC 05/15/24 11:59 Not Given
AC OLGA
Protocol
Metoprolol Succinate 25 mg 04/16/24 22:00 04/18/24 21:00
Metoprolol 25 Mg Extended Release Tablet PO 05/14/24 21:59 25 mg
HS OLGA Administration
Ondansetron HCl 4 mg 04/16/24 01:48
Ondansetron 4 Mg/2 Ml Vial IV 05/14/24 01:47
Q6HPRN PRN
nausea and vomiting
Oxycodone HCl 5 mg 04/16/24 01:48 04/17/24 13:33
Oxycodone 5 Mg Regular Release Tablet PO 04/30/24 01:47 5 mg
Q4HPRN PRN Administration
moderate pain
Pantoprazole Sodium 40 mg 04/19/24 20:00
Pantoprazole Sodium 40 Mg/10 Ml Vial IV 05/17/24 19:59
BID OLGA
Polyethylene Glycol 17 grams 04/16/24 01:48
Polyethylene Glycol Powder 17 Grams Packet PO 05/14/24 01:47
DAILYPRN PRN
constipation
Senna/Docusate Sodium 1 tablet 04/16/24 01:48
Docusate W/Senna (Geno-Colace) Tablet PO 05/14/24 01:47
BIDPRN PRN
constipation
Sodium Chloride 0 flush 04/16/24 02:00 04/18/24 21:01
Sodium Chloride 0.9% (Flush) Syringe IV 05/14/24 01:59 1 flush
PER PROTOCOL OLGA Administration
Sodium Chloride 10 ml 04/16/24 08:00 04/19/24 07:59
Sodium Chloride 0.9% (Preservative Free) 10 Ml Vial IV 05/14/24 07:59 10 ml
DAILY OLGA Administration
Review of Systems
-
History Source: Patient
Constitutional: Reports No Symptoms
Respiratory: Reports No Symptoms
Cardiac: Reports Chest Pain
GI: Reports Abdominal Pain and Other (Reports copious andreas blood per rectum)
: Reports No Symptoms
Hematologic/Lymphatic: Reports Bleeding
Physical Exam
-
General: Well Nourished, No Apparent Distress and Comfortable
Cardiology: Normal Sinus Rhythm, S1 and S2
Pulmonary: Clear
GI: Soft and Other (Slight tenderness left upper quadrant to palpation. No rebound, no guarding)
Musculoskeletal: No Edema
Skin: Warm and Dry
Psych: Calm and Intact Judgement/Insight
Labs
Lab Results
WBC 22.8 10^3/uL (4.8-10.8) H 04/19/24 05:09
RBC 2.67 10^6/uL (4.70-6.10) L 04/19/24 05:09
Hgb 8.3 g/dL (13.0-18.0) L 04/19/24 05:09
Hct 23.5 % (39.0-52.0) L 04/19/24 05:09
MCV 88.0 fL (80.0-94.0) 04/19/24 05:09
MCH 31.1 pg (27.0-31.0) H 04/19/24 05:09
MCHC 35.3 g/dL (33.0-37.0) 04/19/24 05:09
RDW 16.0 % (11.5-14.5) H 04/19/24 05:09
Plt Count 334 10^3/uL (130-400) D 04/19/24 05:09
MPV 10.9 fL (7.4-10.4) H 04/19/24 05:09
Abs Immat Gran (auto) 0.1 10^3/uL (0-0.05) H 04/17/24 02:53
Absolute Neuts (auto) 6.2 10^3/uL (1.4-6.5) 04/17/24 02:53
Absolute Lymphs (auto) 2.3 10^3/uL (1.2-3.4) 04/17/24 02:53
Absolute Monos (auto) 1.3 10^3/uL (0.1-0.6) H 04/17/24 02:53
Absolute Eos (auto) 0.0 10^3/uL (0-0.7) 04/17/24 02:53
Absolute Basos (auto) 0.0 10^3/uL (0-0.2) 04/17/24 02:53
Immature Gran % 0.7 % (0-0.5) H 04/17/24 02:53
Neutrophils % 62.4 % (42.2-75.2) 04/17/24 02:53
Lymphocytes % 23.3 % (20.5-51.1) 04/17/24 02:53
Monocytes % 13.1 % (1.7-9.3) H 04/17/24 02:53
Eosinophils % 0.4 % (0-6) 04/17/24 02:53
Basophils % 0.1 % (0-2) 04/17/24 02:53
Creatinine 1.2 mg/dL (0.7-1.3) 04/19/24 05:09
Vital Signs
Vital Signs
Temp Pulse Resp BP Pulse Ox
97.6 F 73 16 155/86 100
04/19/24 10:55 04/19/24 10:55 04/19/24 10:55 04/19/24 10:55 04/19/24 10:55
[2024-04-19 12:05] LABS: Hematocrit 24.3 % (39.0-52.0); Hemoglobin 8.8 g/dL (13.0-18.0); Mean Corp Hgb Conc. 36.2 g/dL (33.0-37.0); Mean Corpuscular Hgb 31.7 pg (27.0-31.0); Mean Corpuscular Volume 87.4 fL (80.0-94.0); Mean Platelet Volume 10.4 fL (7.4-10.4); Platelet Count 337 10^3/uL (130-400); Red Blood Cell Count 2.78 10^6/uL (4.70-6.10); Red Cell Dist. Width 15.9 % (11.5-14.5); White Blood Cell Count 18.1 10^3/uL (4.8-10.8)
[2024-04-19 12:15] LABS: INR 1.27; PT 16.2 Sec (11.4-14.6)
[2024-04-19 12:16] LABS: APTT 27.2 Sec (23.4-35.0)
[2024-04-19 12:41] LABS: Glucose - Point of Care 96 mg/dl (70-99)
--- NOTE | 2024-04-19 12:57 | CM ---
Chart reviewed
Cholecystectomy on hold due to bleeding- poss lap darci tomorrow if stable
CM will follow for d/c needs
Plan - anticipate home no needs
--- NOTE | 2024-04-19 13:00 | W.PN.HOSP.TC ---
Today's Communication/Plan
-
Follow HH
Assessment / Plan
Assessment / Plan
Patient with CAD s/p CABG thought secondary to Tasigna and complicated by pericardial effusion/tamponade s/p pericardiocentesis this year coming in with epigastric/chest pain radiating to back. ECG is non-ischemic. Trop negative x 2. CT shows
gall stones and a small CBD stone. Has elevated bilirubin with transaminitis. Picture is c/w choledocholithiasis. Possible cholecystitis with mild gall bladder inflammatory changes. Hemodynamically stable but significant pain.
PLAN:
Acute Choledocholithiasis with concern for biliary sepsis
Cholelithiasis without radiological evidence of acute cholecystitis
-Patient with ongoing abdominal pain. Acute cholecystitis hepatitis picture noted. Lipase is normal. Ultrasound of the abdomen shows choledocholithiasis and a mobile gallstone and concern of hepatic disease. MRI of the abdomen noted
- s/p ERCP and stone removal and biliary sphinctrotomy 04/16 but was complicated by bleeding from sphincterotomy site which was tx 04/17 successfully by epi injection, hemostatic clips ,cautery and subsequently a bilary stent was placed .
S/P one unit of PRBC and 2 units of PRBC
HH stable . No obvious external bleeding
Diet per GI
Acute blood loss anemia s/p 2 PRBC transfusion so far. Follow HH
Cholelithiasis - lap darci once bleeding issues are settled.
CAD
- s/p asa 325, continue with aspirin if okay from proceduralist
- continue statin
DM II
- hold metformin and Mounjaro
- sliding scale insulin
Ongoing bereavement - mom 2 weeks ago- prn xanax as pt is feeling anxious .
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 Is currently on surveillance lab draws. Due to prolonged course of bleeding from
procedural site dw hematology -rec one unit of PRBC which is completed now. HH stable so far.
HTN -cw home meds
DVT PPX - lovenox sq
Code status - full code
DW RN
Anticipated Discharge: > 48 hours
Subjective/Interval History
-
Date of Service: April 19, 2024
No nausea vomiting. Tolerating clear liquids. No BM today.
Objective Data
-
Labs:
Laboratory Results
04/19/24 04/19/24
05:09 11:58
WBC 22.8 H 18.1 H
Hgb 8.3 L 8.8 L
Hct 23.5 L 24.3 L
Plt Count 334 D 337
PT 16.2 H
INR 1.27
APTT 27.2
Sodium 139
Potassium 4.2
Chloride 103
Carbon Dioxide 26
BUN 22 H
Creatinine 1.2
Glucose 88
Calcium 8.6
Total Bilirubin 1.3
AST 93 H
ALT 222 H
Alkaline Phosphatase 557 H
Vital Signs:
Vital Signs
Temp Pulse Resp BP Pulse Ox
97.6 F 73 16 155/86 100
04/19/24 10:55 04/19/24 10:55 04/19/24 10:55 04/19/24 10:55 04/19/24 10:55
I&O
04/18/24 04/19/24 04/20/24
06:59 06:59 06:59
Intake Total 1700 / 1700 2814 / 2814
Output Total 600 / 600 950 / 950
Balance 1100 / 1100 1864 / 1864
Review of Systems
-
Respiratory: Denies Trouble Breathing
Cardiac: Denies Chest Pain
Abdomen/GI: Reports Abdominal Pain (Improved); Denies Nausea or Vomiting
Neuro: Denies Dizzy
Physical Exam
-
General: No Apparent Distress
HEENT: Moist Mucous Membranes
Respiratory: Non Labored Respirations; Negative Accessory Resp Muscle Use
Cardiac: Regular Rhythm and S1/S2
GI: Soft and Nontender
Neuro: AO x 3
Data Reviewed
-
Labs: Labs Reviewed by me
[2024-04-19 15:10] VITALS: BP 137/71
[2024-04-19 16:58] LABS: Glucose - Point of Care 95 mg/dl (70-99)
[2024-04-19] MEDS: DILAUDID 1 MG IV ×2 (17:25→23:48)
[2024-04-19] MEDS: ZOFRAN 4 MG IV (17:27)
[2024-04-19 18:05] LABS: Hematocrit 25.3 % (39.0-52.0); Hemoglobin 8.7 g/dL (13.0-18.0); Mean Corp Hgb Conc. 34.4 g/dL (33.0-37.0); Mean Corpuscular Hgb 30.9 pg (27.0-31.0); Mean Corpuscular Volume 89.7 fL (80.0-94.0); Mean Platelet Volume 10.4 fL (7.4-10.4); Platelet Count 377 10^3/uL (130-400); Red Blood Cell Count 2.82 10^6/uL (4.70-6.10); Red Cell Dist. Width 16.2 % (11.5-14.5); White Blood Cell Count 17.9 10^3/uL (4.8-10.8)
[2024-04-19 18:18] LABS: ALT (SGPT) 206 U/L (0-50); AST (SGOT) 93 U/L (17-59); Albumin 3.5 g/dl (3.5-5.0); Alkaline Phosphatase 550 U/L (38-126); Blood Urea Nitrogen 21 mg/dl (9-20); Calcium 8.8 mg/dl (8.4-10.2); Carbon Dioxide 26 mmol/L (22-30); Chloride 103 mmol/L (98-107); Estimated Creatinine Clearance 70 ml/min; Glucose 95 mg/dl (70-99); Lipase 681 U/L (23-300); Potassium 4.2 mmol/L (3.5-5.1); Sodium 138 mmol/L (135-145); Total Bilirubin 1.3 mg/dl (0.2-1.3); eGFR > 60.00
[2024-04-19 19:00] VITALS: BP 130/77
[2024-04-19] MEDS: OMNIPAQUE 50 ML PO (19:36)
[2024-04-19 21:37] LABS: Glucose - Point of Care 85 mg/dl (70-99)
[2024-04-19] MEDS: TOPROL XL 25 MG PO (21:57)
[2024-04-19 23:00] VITALS: BP 141/77
[2024-04-20] VITALS (18 sets, daily range): BP systolic 92–154; BP diastolic 52–91
[2024-04-20] MEDS: ZOSYN 50 IV ×4 (05:07→22:48)
[2024-04-20] MEDS: DILAUDID 1 MG IV ×3 (05:54→19:55)
[2024-04-20 06:50] LABS: Glucose - Point of Care 107 mg/dl (70-99)
[2024-04-20 07:01] LABS: Hematocrit 24.4 % (39.0-52.0); Hemoglobin 8.5 g/dL (13.0-18.0); Mean Corp Hgb Conc. 34.8 g/dL (33.0-37.0); Mean Corpuscular Hgb 31.1 pg (27.0-31.0); Mean Corpuscular Volume 89.4 fL (80.0-94.0); Mean Platelet Volume 10.7 fL (7.4-10.4); Platelet Count 358 10^3/uL (130-400); Red Blood Cell Count 2.73 10^6/uL (4.70-6.10); Red Cell Dist. Width 15.9 % (11.5-14.5); White Blood Cell Count 15.4 10^3/uL (4.8-10.8)
[2024-04-20 07:24] LABS: ALT (SGPT) 172 U/L (0-50); AST (SGOT) 72 U/L (17-59); Alkaline Phosphatase 480 U/L (38-126); Blood Urea Nitrogen 19 mg/dl (9-20); Calcium 8.1 mg/dl (8.4-10.2); Carbon Dioxide 25 mmol/L (22-30); Chloride 102 mmol/L (98-107); Estimated Creatinine Clearance 65 ml/min; Glucose 72 mg/dl (70-99); Lipase 388 U/L (23-300); Sodium 137 mmol/L (135-145); Total Bilirubin 1.1 mg/dl (0.2-1.3); Total Protein 5.4 g/dl (6.3-8.2); eGFR > 60.00
[2024-04-20] MEDS: NSS (PRESERVATIVE FREE) IV (08:03)
[2024-04-20] MEDS: NSS (PRESERVATIVE FREE) 10 ML IV ×2 (08:03→20:00)
[2024-04-20] MEDS: LIPITOR 80 MG PO (08:03)
[2024-04-20] MEDS: PROTONIX IV 40 MG IV ×2 (08:04→19:55)
--- NOTE | 2024-04-20 09:44 | W.PN.GS2 ---
Today's Communication / Plan
-
-- Laparoscopic cholecystectomy with possible cholangiogram
Assessment / Plan
-
Assessment: 63-year-old male initially admitted with choledocholithiasis; cholelithiasis but no evidence of acute calculus cholecystitis -contrast visualized within gallbladder on subsequent CT imaging ruling out cystic duct obstruction
PPD#4 ERCP sphincterotomy and stone removal
PPD#4 ERCP epi, cautery, stent and clip placement for bleeding
s/p 2 units PRBC transfusion and 1 platelet transfusion
Afebrile, tachycardia overnight, now resolved, BP stable
Leukocytosis present, slow down trend
Acute blood loss anemia, h/h being trended. ASA on hold, alst dose on 04/15-
LFTs and bilirubin improving, lipase mild elevation with check yesterday and trending down
Continue pain and discomfort likely related to recent ERCP with potential edema/hematoma as well as some pancreatitis. Unusual that he continues to require IV pain medications. Hemoglobin stable. The cystic duct is patent based on his initial
ERCP. In-depth discussion with the patient, GI, and the hospitalist regarding the above. Options for delayed cholecystectomy were reviewed. Pros and cons were considered and discussed. Patient and all involved parties wish to proceed with
cholecystectomy.
Plan for a laparoscopic cholecystectomy with possible cholangiogram. The procedure itself, as well as the risks, benefits, and alternatives was discussed. Specifically, we discussed risks of bleeding (increased risk given recent ASA use),
infection, injury to surrounding structures (bowel, bile ducts), CBD injury, need for open procedure. Typical postprocedure recovery was discussed. All questions answered. Consent signed.
Plan:
-- Laparoscopic cholecystectomy with possible cholangiogram
-- NPO, IVF
-- Abx: Zosyn
-- Pain control: Tylenol and Dilaudid
Subjective Data
-
Date of Service: April 20, 2024
Persistent epigastric and RIGHT subcostal discomfort. Difficult to discern though patient does not seem to indicate any significant improvement or worsening over the past few days. No nausea or vomiting. No fevers. He does continue to use IV
pain medication for his discomfort. Denies any bloody bowel movements, but does report some more maroon stools this AM. No dizziness or lightheadedness.
Objective Data
-
Intake and Output
04/19/24 04/20/24 04/21/24
06:59 06:59 06:59
Intake Total 2814 / 2814 1650 / 1650 375 / 375
Output Total 950 / 950
Balance 1864 / 1864 1650 / 1650 375 / 375
Intake:
Oral fluids 2039 / 0 1650 / 1650 375 / 375
IV piggybacks 200 / 200
Blood products 287 / 287
Blood Product Amount Infused ( 287 / 287
mL)
Pathogen Redu Plt Leukored 287 / 287
Unit [id number]
Output:
Urine, Voided 950 / 950
Other:
Number of approximated MODERATE 2 6 2
amounts of urine
Vital Signs
Temp Pulse Resp BP Pulse Ox
97.5 F 70 16 104/61 94
04/20/24 07:41 04/20/24 07:41 04/20/24 07:41 04/20/24 07:41 04/20/24 08:00
Lab Results
04/20/24 04:49
04/20/24 04:49
Calcium 8.1 mg/dl (8.4-10.2) L 04/20/24 04:49
Total Bilirubin 1.1 mg/dl (0.2-1.3) 04/20/24 04:49
Direct Bilirubin 2.2 mg/dl (0.0-0.4) H 04/16/24 05:02
AST 72 U/L (17-59) H 04/20/24 04:49
ALT 172 U/L (0-50) H 04/20/24 04:49
Alkaline Phosphatase 480 U/L (38-126) H 04/20/24 04:49
Total Protein 5.4 g/dl (6.3-8.2) L 04/20/24 04:49
Albumin 3.0 g/dl (3.5-5.0) L 04/20/24 04:49
Physical Exam
-
Gen: NAD
Abd: soft, tender in epigastrium, ND/obese, non-peritoneal
Patient has a domínguez catheter: No
Patient has a central line: No
--- NOTE | 2024-04-20 09:51 | W.SUR.PREOP ---
Pre-Operative Surgical Note
-
I have examined this patient prior to the performance of the scheduled procedure.
The patient's condition is unchanged from the time of the current History and
Physical and the patient is able to undergo the scheduled procedure.
--- NOTE | 2024-04-20 11:24 | W.PN.GI.CBS2 ---
Today's Communication / Plan
-
Lap cholecystectomy scheduled today
Assessment / Plan
-
Pt is a 63yo with hx CML with bone marrow transplant in 1995 with recurrence in 1998(off med since July with cardiac issues), prior MT with prior CABG x3 with post-op pericardial tamponade with prior pericardiocentesis in August 2023, NIDDM on
Mounjaro with recent dose increased, GERD, HTN, diverticulitis, renal stone, cerebral aneurysm presents with chest/epigastric abdominal pain with radiation to back. Pt also admits to feeling of fever/chills with noted tachycardia on admission.
Labs noted with bili 3.1, AST 441, ALT 513, alk darien 763 with lipase of 55 and rise in WBC to 18,200 after admission. Imaging on admission with CT chest/abd/pelvis angio with no heart enlargement,no aortic aneurysm or dissection, CBD up to 10mm
with possible stone. Also noted 'nutmeg' liver with increased right heart pressure or hepatitis. 04/15/24 US with cholelithiasis without acute cholecystitis, CBD dilatation with obstructing cause, increased liver echogenicity c/w underlying
hepatocellular disease most common related to fatty liver, vessel appear patent. No anticoagulation prior to admission.
04/17 PRBC 2 units
04/18 Platelet tranfusion
Impression:
CBD stone s/p ERCP 04/16
Rectal bleeding post ERCP s/p epi, cautery, stent, clip 04/17
'nutmeg' liver with increased right heart pressure vs hepatitis//US with fatty liver
chronic Mounjaro use with recent dose increase and 65 lbs wt loss
other med problems:
--CML with prior bone marrow transplant 1995 with recurrence 1998-- off meds since August with cardiac issues
--pericardial tamponade with prior pericardiocentesis in August 2023
--MT/CAD with prior CABG x 01 Aug 2023
plan
Case discussed with patient/hospitalist/general surgery. Hb stable. Dark stool this a.m. likely residual. Recommend continue follow-up CBC
Patient's current symptom of fluctuating abdominal pain can be multifactorial considering complicated ERCP course during this admission. Liver tests downtrending. Lipase downtrending. CT abdomen/pelvis with contrast yesterday not showing any
pancreatitis or any other acute findings to explain his abdominal pain. Discussed with patient about delayed cholecystectomy option by surgery. Patient would like to proceed with surgery today
Patient requires repeat ERCP with stent removal in 6-[address] Cavazos. Recommend outpatient GI follow-up
Total Time Spent with Patient (in minutes): 35
Subjective
Subjective
Date of Service: April 20, 2024
Complaining of epigastric discomfort which radiates to her upper chest. Denies any nausea or vomiting. No BMs for the last 2 to 3 days. Had smear of stool this a.m. with some dark material. No fresh blood.
Objective
Data Reviewed
Laboratory Data:
Laboratory Results
04/20/24 04:49
04/20/24 04:49
Laboratory Results
PT 16.2 Sec (11.4-14.6) H 04/19/24 11:58
INR 1.27 04/19/24 11:58
APTT 27.2 Sec (23.4-35.0) 04/19/24 11:58
Total Bilirubin 1.1 mg/dl (0.2-1.3) 04/20/24 04:49
AST 72 U/L (17-59) H 04/20/24 04:49
ALT 172 U/L (0-50) H 04/20/24 04:49
Alkaline Phosphatase 480 U/L (38-126) H 04/20/24 04:49
Lipase 388 U/L (23-300) H 04/20/24 04:49
Vital Signs and I&O:
Vital Signs
Temp Pulse Resp BP Pulse Ox
97.3 F 64 16 136/73 98
04/20/24 11:18 04/20/24 11:18 04/20/24 11:18 04/20/24 11:18 04/20/24 11:18
I&O
04/19/24 04/20/24 04/21/24
06:59 06:59 06:59
Intake Total 2814 / 2814 1650 / 1650 375 / 375
Output Total 950 / 950
Balance 1864 / 1864 1650 / 1650 375 / 375
Physical Exam
Physical Exam
GI: Soft, Non Distended and Tender (Epigastric/ RUQ tenderness on deep palpation)
Rectal: Other (Dark stool noted in the rectal vault. no BRBPR)
[2024-04-20 11:49] LABS: Glucose - Point of Care 70 mg/dl (70-99)
--- NOTE | 2024-04-20 12:01 | CM ---
Chart reviewed
Lap cholecystectomy scheduled for today
CM will follow for discharge needs
Plan - anticipate home no needs
--- NOTE | 2024-04-20 13:36 | W.PN.HOSP.TC ---
Today's Communication/Plan
-
Cw abx
Lap darci per surgery
Follow HH
Assessment / Plan
Assessment / Plan
Patient with CAD s/p CABG thought secondary to Tasigna and complicated by pericardial effusion/tamponade s/p pericardiocentesis this year coming in with epigastric/chest pain radiating to back. ECG is non-ischemic. Trop negative x 2. CT shows
gall stones and a small CBD stone. Has elevated bilirubin with transaminitis. Picture is c/w choledocholithiasis. Possible cholecystitis with mild gall bladder inflammatory changes. Hemodynamically stable but significant pain.
PLAN:
Acute Choledocholithiasis with concern for biliary sepsis
Cholelithiasis without radiological evidence of acute cholecystitis
-Patient with ongoing abdominal pain. Acute cholecystitis hepatitis picture noted. Lipase is normal. Ultrasound of the abdomen shows choledocholithiasis and a mobile gallstone and concern of hepatic disease. MRI of the abdomen noted
- s/p ERCP and stone removal and biliary sphinctrotomy 04/16 but was complicated by bleeding from sphincterotomy site which was tx 04/17 successfully by epi injection, hemostatic clips ,cautery and subsequently a bilary stent was placed .
S/P one unit of PRBC and 2 units of PRBC
HH stable . No obvious external bleeding
Diet per GI
Acute blood loss anemia s/p 2 PRBC transfusion so far. Follow HH
Cholelithiasis - lap darci later today
Abdominal pain post second ERCP - Lipase elevation and Epigastric area tenderness noted - posssible chemical pancreatitis . CT A/P no acute pathology , patent CBD stent
CAD
- s/p asa 325, continue with aspirin if okay from proceduralist
- continue statin
DM II
- hold metformin and Mounjaro
- sliding scale insulin
Ongoing bereavement - mom 2 weeks ago- prn xanax as pt is feeling anxious .
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 Is currently on surveillance lab draws. Due to prolonged course of bleeding from
procedural site dw hematology -rec one unit of PRBC which is completed now. HH stable so far.
HTN -cw home meds
DVT PPX - lovenox sq
Code status - full code
DW RN
DW surgery
Anticipated Discharge: > 48 hours
Subjective/Interval History
-
Date of Service: April 20, 2024
Pt with abdo pain-points to epigastric and RUQ area.
No nausea currently .
No fever.
NPO for surgery
Objective Data
-
Labs:
Laboratory Results
04/20/24
04:49
WBC 15.4 H
Hgb 8.5 L
Hct 24.4 L
Plt Count 358
Sodium 137
Potassium 4.0
Chloride 102
Carbon Dioxide 25
BUN 19
Creatinine 1.3
Glucose 72
Calcium 8.1 L
Total Bilirubin 1.1
AST 72 H
ALT 172 H
Alkaline Phosphatase 480 H
Vital Signs:
Vital Signs
Temp Pulse Resp BP Pulse Ox
97.3 F 64 16 136/73 98
04/20/24 11:18 04/20/24 11:18 04/20/24 11:18 04/20/24 11:18 04/20/24 11:18
I&O
04/19/24 04/20/24 04/21/24
06:59 06:59 06:59
Intake Total 2814 / 2814 1650 / 1650 375 / 375
Output Total 950 / 950
Balance 1864 / 1864 1650 / 1650 375 / 375
Review of Systems
-
Respiratory: Denies Trouble Breathing
Cardiac: Denies Chest Pain
Neuro: Denies Dizzy
Physical Exam
-
General: No Apparent Distress
HEENT: Moist Mucous Membranes
Respiratory: Clear to Auscultation
Cardiac: Regular Rhythm and S1/S2
GI: Soft, Nondistended, Normal Bowel Sounds and Tender (epigastric and RUQ area but no rebound/guarding)
Neuro: AO x 3
Psych: Calm
Data Reviewed
-
Labs: Labs Reviewed by me
[2024-04-20 14:24] LABS: Glucose - Point of Care 87 mg/dl (70-99)
--- NOTE | 2024-04-20 15:30 | W.IMMPOSTOP ---
Surgical Immed Post Op Note
-
Primary Surgeon: Miguel
Assisting Surgeon: OMEGA Cutler
Pre-op Diagnosis: Choledocholithiasis
Post-op Diagnosis: Choledocholithiasis
Procedure Performed: Laparoscopic cholecystectomy
Anesthesia Type: General
Specimen / Cultures:
1. Gallbladder
Estimated Blood Loss: 7 cc
Complications: None
Operative Findings:
1. Distended largely normal appearing GB, mild wall thickening
2. Critical view of safety
3. Duct and artery taken with clips
[2024-04-20 15:51] LABS: Glucose - Point of Care 95 mg/dl (70-99)
[2024-04-20] MEDS: SUBLIMAZE 50 MCG IV ×2 (16:43→16:55)
[2024-04-20] MEDS: NORMOSOL-R/PLASMALYTE-A 1000 IV (17:05)
[2024-04-20 17:31] LABS: Glucose - Point of Care 90 mg/dl (70-99)
--- NOTE | 2024-04-20 17:37 | PTCARENOTE ---
Pt arrived back to [facility] from PACU s/p lap darci. Pt AAOx3, on 2L NC satting 99%. Pt has 5 lap sites all C/D/I. Pt states no pain at this time. Call mcclain within reach.
--- NOTE | 2024-04-20 18:05 | SUR.PHASEI ---
pacu addendummedicated x2 with fentanyl for pain RUQ, elevated HOB for comfort - O2 resumed after fentanyl due to low sats, immediate improvement
[2024-04-20 21:14] LABS: Glucose - Point of Care 174 mg/dl (70-99)
--- NOTE | 2024-04-20 21:18 | PTCARENOTE ---
Pt assessed as per flowsheet on worklist. Pt c/o pain 11/07. Medicated with Dilaudud as ordered for relief to a 08/07. Pt states he has has no flatus since sx. Sx sites CDI. No s/s of distress assessed. Will continue to monitor.
[2024-04-20] MEDS: TOPROL XL 25 MG PO (22:48)
[2024-04-21] MEDS: DILAUDID 1 MG IV ×2 (00:43→05:42)
--- NOTE | 2024-04-21 02:17 | DOWNTIME ---
There was a [employer] Client Stenotype Operator Downtime on 04/21/2024 from 0100 to 04/21/2023 at 0205 . Downtime documentation of patient's care, including medication administrations, has been reconciled in the electronic record per guidelines. Refer to the
patient's paper chart under the miscellaneous tab to see printed paper medication records and downtime forms.
[2024-04-21 03:26] VITALS: BP 127/69
[2024-04-21] MEDS: ZOSYN 50 IV ×3 (05:40→18:34)
[2024-04-21 07:17] VITALS: BP 151/80
[2024-04-21 07:56] LABS: Glucose - Point of Care 122 mg/dl (70-99)
[2024-04-21] MEDS: PROTONIX IV 40 MG IV ×2 (07:59→21:15)
[2024-04-21] MEDS: LIPITOR 80 MG PO (08:00)
[2024-04-21] MEDS: NSS (PRESERVATIVE FREE) 10 ML IV ×2 (08:00→21:16)
--- NOTE | 2024-04-21 08:06 | W.PN.ONC2 ---
Today's Communication / Plan
-
Heme will sign off.
Impression
Impression
Cholelithiasis
CML
Bleeding: Likely bleeding was secondary to endoscopy, patient reports resolution of bleeding after repeat endoscopy
Plan
Plan
CML unlikely to be contributory to transient bleeding, platelet count & coag studies within normal limits. May have component of platelet dysfunction secondary to aspirin
Follows hematology oncology at [facility], will defer to them regarding ongoing CML management once discharged.
Heme will sign off.
Subjective/Objective
Chief Complaint
ACS Oncology F/U
Subjective
Doing well postoperatively. No complaints. Status post laparoscopic cholecystectomy yesterday 04/20.
Vital Signs:
Vital Signs
Temp Pulse Resp BP Pulse Ox
97.2 F 84 18 151/80 98
04/21/24 07:17 04/21/24 07:17 04/21/24 07:17 04/21/24 07:17 04/21/24 07:17
Lab Results:
Laboratory Data
WBC 15.4 10^3/uL (4.8-10.8) H 04/20/24 04:49
Hgb 8.5 g/dL (13.0-18.0) L 04/20/24 04:49
Plt Count 358 10^3/uL (130-400) 04/20/24 04:49
PT 16.2 Sec (11.4-14.6) H 04/19/24 11:58
INR 1.27 04/19/24 11:58
APTT 27.2 Sec (23.4-35.0) 04/19/24 11:58
eGFR > 60.00 04/20/24 04:49
Physical Exam
Cardiology: Normal Sinus Rhythm, S1 and S2
Pulmonary: Clear
GI: Soft
[2024-04-21] MEDS: NSS (PRESERVATIVE FREE) IV (08:27)
[2024-04-21 08:39] LABS: Hematocrit 23.5 % (39.0-52.0); Hemoglobin 8.2 g/dL (13.0-18.0); Mean Corp Hgb Conc. 34.9 g/dL (33.0-37.0); Mean Corpuscular Hgb 31.5 pg (27.0-31.0); Mean Corpuscular Volume 90.4 fL (80.0-94.0); Mean Platelet Volume 10.6 fL (7.4-10.4); Platelet Count 438 10^3/uL (130-400); White Blood Cell Count 11.4 10^3/uL (4.8-10.8)
--- NOTE | 2024-04-21 08:43 | W.PN.GI.CBS2 ---
Today's Communication / Plan
-
Outpatient GI follow up. repeat ERCP with stent removal with
Assessment / Plan
-
Pt is a 63yo with hx CML with bone marrow transplant in 1995 with recurrence in 1998(off med since July with cardiac issues), prior PA with prior CABG x3 with post-op pericardial tamponade with prior pericardiocentesis in August 2023, NIDDM on
Mounjaro with recent dose increased, GERD, HTN, diverticulitis, renal stone, cerebral aneurysm presents with chest/epigastric abdominal pain with radiation to back. Pt also admits to feeling of fever/chills with noted tachycardia on admission.
Labs noted with bili 3.1, AST 441, ALT 513, alk darien 763 with lipase of 55 and rise in WBC to 18,200 after admission. Imaging on admission with CT chest/abd/pelvis angio with no heart enlargement,no aortic aneurysm or dissection, CBD up to 10mm
with possible stone. Also noted 'nutmeg' liver with increased right heart pressure or hepatitis. 04/15/24 US with cholelithiasis without acute cholecystitis, CBD dilatation with obstructing cause, increased liver echogenicity c/w underlying
hepatocellular disease most common related to fatty liver, vessel appear patent. No anticoagulation prior to admission.
04/17 PRBC 2 units
04/18 Platelet tranfusion
Impression:
CBD stone s/p ERCP 04/16
Rectal bleeding post ERCP s/p epi, cautery, stent, clip 04/17
s/p Cholecystectomy 04/20
'nutmeg' liver with increased right heart pressure vs hepatitis//US with fatty liver
chronic Mounjaro use with recent dose increase and 65 lbs wt loss
other med problems:
--CML with prior bone marrow transplant 1995 with recurrence 1998-- off meds since August with cardiac issues
--pericardial tamponade with prior pericardiocentesis in August 2023
--PA/CAD with prior CABG x 01 Aug 2023
plan
patient is feeling better after cholecystectomy yesterday .
Diet as per surgery .
Patient requires repeat ERCP with stent removal in 6-[address] Cavazos. Recommend outpatient GI follow-up. will s/o
Total Time Spent with Patient (in minutes): 35
Subjective
Subjective
Date of Service: April 21, 2024
s/p cholecystectomy . feeling better. claims his previous pain is gone . some pain at surgical site. No nausea/ vomiting
Objective
Data Reviewed
Laboratory Data:
Laboratory Results
04/21/24 06:39
Laboratory Results
PT 16.2 Sec (11.4-14.6) H 04/19/24 11:58
INR 1.27 04/19/24 11:58
APTT 27.2 Sec (23.4-35.0) 04/19/24 11:58
Total Bilirubin 1.1 mg/dl (0.2-1.3) 04/20/24 04:49
AST 72 U/L (17-59) H 04/20/24 04:49
ALT 172 U/L (0-50) H 04/20/24 04:49
Alkaline Phosphatase 480 U/L (38-126) H 04/20/24 04:49
Lipase 388 U/L (23-300) H 04/20/24 04:49
Vital Signs and I&O:
Vital Signs
Temp Pulse Resp BP Pulse Ox
97.2 F 84 18 151/80 98
04/21/24 07:17 04/21/24 07:17 04/21/24 07:17 04/21/24 07:17 04/21/24 07:17
I&O
04/20/24 04/21/24 04/22/24
06:59 06:59 06:59
Intake Total 1650 / 1650 1425 / 1425
Output Total 1100 / 1100
Balance 1650 / 1650 325 / 325
Physical Exam
Physical Exam
GI: Soft, Non Distended and Non Tender
[2024-04-21 08:50] LABS: ALT (SGPT) 146 U/L (0-50); AST (SGOT) 59 U/L (17-59); Albumin 3.2 g/dl (3.5-5.0); Alkaline Phosphatase 418 U/L (38-126); Blood Urea Nitrogen 16 mg/dl (9-20); Calcium 8.4 mg/dl (8.4-10.2); Carbon Dioxide 25 mmol/L (22-30); Chloride 102 mmol/L (98-107); Estimated Creatinine Clearance 77 ml/min; Glucose 109 mg/dl (70-99); Sodium 134 mmol/L (135-145); Total Bilirubin 0.9 mg/dl (0.2-1.3); Total Protein 5.7 g/dl (6.3-8.2); eGFR > 60.00
[2024-04-21 09:01] LABS: Potassium 4.6 mmol/L (3.5-5.1)
--- NOTE | 2024-04-21 10:40 | W.PN.GS2 ---
Today's Communication / Plan
-
Reg diet
OK for DC
Assessment / Plan
-
Assessment: 63-year-old male initially admitted with choledocholithiasis; cholelithiasis but no evidence of acute calculus cholecystitis -contrast visualized within gallbladder on subsequent CT imaging ruling out cystic duct obstruction
PPD#4 ERCP sphincterotomy and stone removal
PPD#4 ERCP epi, cautery, stent and clip placement for bleeding
s/p 2 units PRBC transfusion and 1 platelet transfusion
POD1 s/p lap darci
Doing well POD1, progressing as expected.
Plan:
-- Adv to reg diet
-- Abx: Zosyn, defer duration to Hospitalist, from surgical standpoint no need for further abx
-- Pain control: PRN PO multimodal
-- OK for DC when jeremy reg diet
-- Pls call with ?s
Subjective Data
-
Date of Service: April 21, 2024
Pain mostly resolved, jeremy cld, denies n/v, has not ambulated since surgery
Objective Data
-
Intake and Output
04/20/24 04/21/24 04/22/24
06:59 06:59 06:59
Intake Total 1650 / 1650 1425 / 1425
Output Total 1100 / 1100
Balance 1650 / 1650 325 / 325
Intake:
Oral fluids 1650 / 1650 975 / 975
IV fluids (Total) 450 / 450
normosol 150 / 150
Output:
Urine, Voided 1100 / 1100
Other:
Number of approximated MODERATE 6 1
amounts of urine
Vital Signs
Temp Pulse Resp BP Pulse Ox
97.2 F 84 18 151/80 98
04/21/24 07:17 04/21/24 07:17 04/21/24 07:17 04/21/24 07:17 04/21/24 07:17
Lab Results
04/21/24 06:39
04/21/24 06:39
Calcium 8.4 mg/dl (8.4-10.2) 04/21/24 06:39
Total Bilirubin 0.9 mg/dl (0.2-1.3) 04/21/24 06:39
Direct Bilirubin 2.2 mg/dl (0.0-0.4) H 04/16/24 05:02
AST 59 U/L (17-59) 04/21/24 06:39
ALT 146 U/L (0-50) H 04/21/24 06:39
Alkaline Phosphatase 418 U/L (38-126) H 04/21/24 06:39
Total Protein 5.7 g/dl (6.3-8.2) L 04/21/24 06:39
Albumin 3.2 g/dl (3.5-5.0) L 04/21/24 06:39
Physical Exam
-
Gen: NAD
Abd: soft, approp ttp, incisions cdi
Patient has a domínguez catheter: No
Patient has a central line: No
[2024-04-21 11:11] VITALS: BP 105/62
[2024-04-21 12:27] LABS: Glucose - Point of Care 166 mg/dl (70-99)
--- NOTE | 2024-04-21 13:20 | W.PN.HOSP.TC ---
Today's Communication/Plan
-
DC
Assessment / Plan
Assessment / Plan
Patient with CAD s/p CABG thought secondary to Tasigna and complicated by pericardial effusion/tamponade s/p pericardiocentesis this year coming in with epigastric/chest pain radiating to back. ECG is non-ischemic. Trop negative x 2. CT shows
gall stones and a small CBD stone. Has elevated bilirubin with transaminitis. Picture is c/w choledocholithiasis. Possible cholecystitis with mild gall bladder inflammatory changes. Hemodynamically stable but significant pain.
PLAN:
Acute Choledocholithiasis with concern for biliary sepsis
Cholelithiasis without radiological evidence of acute cholecystitis
-Acute cholestatic hepatitis picture noted on blood work. Lipase is normal. Ultrasound of the abdomen shows choledocholithiasis and a mobile gallstone and concern of hepatic disease.
- s/p ERCP and stone removal and biliary sphinctrotomy 04/16 but was complicated by bleeding from sphincterotomy site which was tx 04/17 successfully by epi injection, hemostatic clips ,cautery and subsequently a bilary stent was placed . Biliary
stent was noted to be stable on further CT angiogram. Bilirubin has normalized. LFTs is improved.
S/P one unit of platelets and 2 units of PRBC
HH stable . No obvious external bleeding
- Post ERCP abdo pain cant rule out biochemical pancreatitis . Improved. Toleratig diet.
- Finished 6 days of IV abx and now GB is out - GB on operative report-distended, largely normal-appearing gallbladder with mild wall thickening. Patient with no fevers and normal white count. Will hold on further antibiotics.
Acute blood loss anemia s/p 2 PRBC transfusion so far. Follow HH-stable
Cholelithiasis - lap darci 04/20 - tolerating diet and cleared by surgery for DC
CAD
- continue with aspirin
- continue statin
DM II
- Resume metformin and Mounjaro on dc
Ongoing bereavement - mom 2 weeks ago- prn xanax as pt is feeling anxious .
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 Is currently on surveillance lab draws. Due to prolonged course of bleeding from
procedural site dw hematology -rec one unit of PRBC which is completed now. HH stable so far.
HTN -cw home meds
DVT PPX - lovenox sq
Code status - full code
Cleared by surgery and GI for discharge.
Medically stable for discharge.
More than 30 minutes spent in discharge including
Final examination of the patient
Summarizing hospital stay
Instructions for continuing care to all relevant caregivers
Preparation of discharge records, prescriptions, and referral forms
Total time spent (in minutes): 35
Anticipated Discharge: Today
Subjective/Interval History
-
Date of Service: April 21, 2024
Status post lap darci 04/20. Tolerating diet without nausea or vomiting. Abdominal pain improved.
Objective Data
-
Labs:
Laboratory Results
04/21/24
06:39
WBC 11.4 H
Hgb 8.2 L
Hct 23.5 L
Plt Count 438 H D
Sodium 134 L
Potassium 4.6
Chloride 102
Carbon Dioxide 25
BUN 16
Creatinine 1.1
Glucose 109 H
Calcium 8.4
Total Bilirubin 0.9
AST 59
ALT 146 H
Alkaline Phosphatase 418 H
Vital Signs:
Vital Signs
Temp Pulse Resp BP Pulse Ox
97.5 F 80 16 105/62 98
04/21/24 11:11 04/21/24 11:11 04/21/24 11:11 04/21/24 11:11 04/21/24 11:11
I&O
04/20/24 04/21/24 04/22/24
06:59 06:59 06:59
Intake Total 165 / 1650 1425 / 1425
Output Total 1100 / 1100
Balance 1650 / 1650 325 / 325
Review of Systems
-
Respiratory: Denies Trouble Breathing
Cardiac: Denies Chest Pain
Neuro: Reports Dizzy (felt dizzy after doing activites viz cleaning himself and the bathroom and bed per pt) and Headache
Physical Exam
-
General: Comfortable
Respiratory: Non Labored Respirations; Negative Accessory Resp Muscle Use
Cardiac: Regular Rhythm and S1/S2; Negative Tachycardic
GI: Soft, Nondistended and Normal Bowel Sounds
Neuro: AO x 3
Psych: Calm
Data Reviewed
-
Labs: Labs Reviewed by me
[2024-04-21] MEDS: ROXICODONE 5 MG PO (13:39)
[2024-04-21 15:07] VITALS: BP 109/67
--- NOTE | 2024-04-21 16:04 | CM ---
Chart reviewed. Met with pt
Poss d/c this PM or in AM
Has ride at discharge
Plan - anticipate home no needs
[2024-04-21 17:18] LABS: Glucose - Point of Care 107 mg/dl (70-99)
[2024-04-21 18:25] LABS: Hematocrit 26.2 % (39.0-52.0); Hemoglobin 8.8 g/dL (13.0-18.0); Mean Corp Hgb Conc. 33.6 g/dL (33.0-37.0); Mean Corpuscular Hgb 31.3 pg (27.0-31.0); Mean Corpuscular Volume 93.2 fL (80.0-94.0); Mean Platelet Volume 9.6 fL (7.4-10.4); Platelet Count 509 10^3/uL (130-400); Red Blood Cell Count 2.81 10^6/uL (4.70-6.10); Red Cell Dist. Width 16.1 % (11.5-14.5); White Blood Cell Count 18.3 10^3/uL (4.8-10.8)
[2024-04-21] MEDS: ROXICODONE 10 MG PO (18:40)
[2024-04-21] MEDS: FLUSH (NSS) 2 FLUSH IV ×2 (21:17→23:59)
[2024-04-21] MEDS: TOPROL XL 25 MG PO (21:19)
[2024-04-21 21:32] LABS: Glucose - Point of Care 127 mg/dl (70-99)
[2024-04-21 23:00] VITALS: BP 138/81
[2024-04-21] MEDS: ZOSYN IV (23:58)
[2024-04-22] MEDS: ZOSYN IV ×2 (00:05→06:23)
[2024-04-22 06:14] LABS: Hematocrit 26.1 % (39.0-52.0); Hemoglobin 8.7 g/dL (13.0-18.0); Mean Corp Hgb Conc. 33.3 g/dL (33.0-37.0); Mean Corpuscular Hgb 31.1 pg (27.0-31.0); Mean Corpuscular Volume 93.2 fL (80.0-94.0); Mean Platelet Volume 10.5 fL (7.4-10.4); Platelet Count 539 10^3/uL (130-400); Red Cell Dist. Width 16.4 % (11.5-14.5); White Blood Cell Count 15.8 10^3/uL (4.8-10.8)
--- NOTE | 2024-04-22 06:23 | PTCARENOTE ---
Patient reviewed own labs on Patient Portal. He stated he felt his WBC elevation was related to his CML and he did not want further ABX. Am labs reviewed and patient continued to refuse abx
[2024-04-22 07:20] VITALS: BP 127/82
[2024-04-22 07:32] LABS: Glucose - Point of Care 85 mg/dl (70-99)
--- NOTE | 2024-04-22 08:42 | W.PN.UPDATE ---
Update Note
Progress Note Update
reviewed with patient for OP followup. 05/26/24 11:30 am with BRIDGET Daigle. Office will call for setting up EGD after visit. Pt with some frustration with staff overnight. I discuss with nursing staff today to review with
manager fashion. hbg stable 8.7. Call with any questions or problems.
[2024-04-22] MEDS: NSS (PRESERVATIVE FREE) IV ×2 (08:43→08:48)
[2024-04-22] MEDS: LIPITOR PO (08:48)
[2024-04-22] MEDS: PROTONIX IV IV (08:49)
[2024-04-22] MEDS: ROXICODONE 10 MG PO (08:53)
--- NOTE | 2024-04-22 09:22 | W.PN.HOSP.TC ---
Addendum entered and electronically signed by Amish Lemon MD 04/24/24 16:41:
sepsis was present during this admission
Original Note:
Today's Communication/Plan
-
DC
Assessment / Plan
Assessment / Plan
Patient with CAD s/p CABG thought secondary to Tasigna and complicated by pericardial effusion/tamponade s/p pericardiocentesis this year coming in with epigastric/chest pain radiating to back. ECG is non-ischemic. Trop negative x 2. CT shows
gall stones and a small CBD stone. Has elevated bilirubin with transaminitis. Picture is c/w choledocholithiasis. Possible cholecystitis with mild gall bladder inflammatory changes. Hemodynamically stable but significant pain.
PLAN:
Acute Choledocholithiasis with concern for biliary sepsis
Cholelithiasis without radiological evidence of acute cholecystitis
-[employer] -Acute cholestatic hepatitis picture noted on blood work. Lipase is normal. Ultrasound of the abdomen shows choledocholithiasis and a mobile gallstone and concern of hepatic disease.
- s/p ERCP and stone removal and biliary sphincterotomy 04/16 but was complicated by bleeding from sphincterotomy site which was tx 04/17 successfully by epi injection, hemostatic clips ,cautery and subsequently a bilary stent was placed . Biliary
stent was noted to be stable on further CT angiogram. Bilirubin has normalized. LFTs is improved.
S/P one unit of platelets and 2 units of PRBC
HH stable . No obvious external bleeding
- Post ERCP abdo pain cant rule out biochemical pancreatitis . Improved. Toleratig diet.
- Finished 6 days of IV abx and now GB is out - GB on operative report-distended, largely normal-appearing gallbladder with mild wall thickening. Patient with no fevers . Improved WBC with a blip up post lap darci and down again which i suspect is
reactive to sx. Known CML. Will hold on further antibiotics.
Acute blood loss anemia s/p 2 PRBC transfusion so far. Follow HH-stable
Cholelithiasis - lap darci 04/20 - tolerating diet and cleared by surgery for DC
CAD
- continue with aspirin
- continue statin
DM II
- Resume metformin and Mounjaro on dc
Ongoing bereavement - mom 2 weeks ago
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 Is currently on surveillance lab draws. Due to prolonged course of bleeding from
procedural site dw hematology -rec one unit of PRBC which is completed now. HH stable so far.
HTN -cw home meds
DVT PPX - lovenox sq
Code status - full code
Cleared by surgery and GI for discharge.
Medically stable for discharge.
More than 30 minutes spent in discharge including
Final examination of the patient
Summarizing hospital stay
Instructions for continuing care to all relevant caregivers
Preparation of discharge records, prescriptions, and referral forms
Total time spent (in minutes): 35
Anticipated Discharge: Today
Subjective/Interval History
-
Date of Service: April 22, 2024
Tolerating diet. No nausea vomiting. Improved abdominal pain. No bowel movement today.
Patient all dressed up in his civil clothes and shoes are on. He is keen to go home.
Objective Data
-
Labs:
Laboratory Results
04/22/24
04:51
WBC 15.8 H
Hgb 8.7 L
Hct 26.1 L
Plt Count 539 H
Vital Signs:
Vital Signs
Temp Pulse Resp BP Pulse Ox
97.6 F 84 16 127/82 99
04/22/24 07:20 04/22/24 07:20 04/22/24 07:20 04/22/24 07:20 04/22/24 07:20
I&O
04/21/24 04/22/24 04/23/24
06:59 06:59 06:59
Intake Total 1425 / 1425
Output Total 1100 / 1100 380 / 380
Balance 325 / 325 -380 / -380
Review of Systems
-
Constitutional: Denies Fever
Respiratory: Denies Trouble Breathing
Cardiac: Denies Chest Pain
Neuro: Denies Dizzy
Physical Exam
-
General: No Apparent Distress
HEENT: Moist Mucous Membranes
Respiratory: Non Labored Respirations; Negative Accessory Resp Muscle Use
Cardiac: Regular Rhythm and S1/S2; Negative Tachycardic
GI: Soft and Nontender; Negative Tender (improved )
Neuro: AO x 3
Data Reviewed
-
Labs: Labs Reviewed by me
--- NOTE | 2024-04-22 09:53 | CM ---
Pt for discharge today
Has ride home -
Plan -anticipate home no needs
[2024-04-22 10:21] VITALS: BP 140/83
--- NOTE | 2024-04-22 13:53 | PN.CDI ---
CDI
- -
CDI:
Physician Documentation Request
Admit Date: 04/16/24 01:16
Dear Doctor Ion,
Clinical Indicators:
The diagnosis of concern for biliary sepsis was documented in hospitalist progress notes 04/16-04/22.
Note states 'acute choledocholithiasis with concern for biliary sepsis. Cholelithiasis without radiological evidence of acute cholecystitis.....Acute cholecystitis hepatitis picture noted'
04/15 wbc 10.8 04/16 18.2
Patient does not have documented fever
Presenting heart rate 91-112
Presenting respiratory rate 16-20
Please clarify the following:
____ - Sepsis was present.
____ - Sepsis was ruled out
____ - Sepsis is/was still a likely concern
____ - Other
Use of terms such as suspected, likely, concern for, or probable (associated with a specific diagnosis that is being evaluated, monitored, or treated as if it exists) are acceptable and can be coded in the inpatient setting, when documented at the
time of discharge.
Thank you,
Antonia Keenan RN, BSN
CDI Specialist
tiger text
Please use your independent medical judgment in providing your response.
== END 2024-04-22 11:20 | disposition home or self-care (01) | DRG 854 ==
LOC: 2 SOUTH 01:16
PROVIDERS: Emergency Medicine; Internal Medicine Gastroenterology; Nurse Practitioner Adult Health; Nurse Practitioner Family; Physician Assistant; Radiology Diagnostic Radiology; Registered Nurse; Surgery; ADMITTING PHYSICIAN Internal Medicine; ATTENDING PHYSICIAN Internal Medicine; CONSULT PHYSICIAN Specialist; EMERGENCY PHYSICIAN Student in an Organized Health Care Education/Training Program; FAMILY PHYSICIAN Family Medicine; OTHER PHYSICIAN Internal Medicine Hematology & Oncology; OTHER PHYSICIAN Surgery
PROC: 0DJ08ZZ Inspection of Upper Intestinal Tract, Via Natural or Artificial Opening Endoscopic (ICD-10-PCS; 2024-04-16)
PROC: 0FC98ZZ Extirpation of Matter from Common Bile Duct, Via Natural or Artificial Opening Endoscopic (ICD-10-PCS; 2024-04-16)
PROC: BF141ZZ Fluoroscopy of Gallbladder, Bile Ducts and Pancreatic Ducts using Low Osmolar Contrast (ICD-10-PCS; 2024-04-16)
PROC: 30233N1 Transfusion of Nonautologous Red Blood Cells into Peripheral Vein, Percutaneous Approach (ICD-10-PCS; 2024-04-17)
PROC: BF101ZZ Fluoroscopy of Bile Ducts using Low Osmolar Contrast (ICD-10-PCS; 2024-04-17)
PROC: 0F5 Hepatobiliary System and Pancreas, Destruction (ICD-10-PCS; 2024-04-17)
PROC: 0F798DZ Dilation of Common Bile Duct with Intraluminal Device, Via Natural or Artificial Opening Endoscopic (ICD-10-PCS; 2024-04-17)
PROC: 3E0G8GC Introduction of Other Therapeutic Substance into Upper GI, Via Natural or Artificial Opening Endoscopic (ICD-10-PCS; 2024-04-17)
PROC: 30233R1 Transfusion of Nonautologous Platelets into Peripheral Vein, Percutaneous Approach (ICD-10-PCS; 2024-04-18)
PROC: 0FT44ZZ Resection of Gallbladder, Percutaneous Endoscopic Approach (ICD-10-PCS; 2024-04-20)
DX: A41.9 Sepsis, unspecified organism (principal); C92.10 Chronic myeloid leukemia, BCR/ABL-positive, not having achieved remission; K80.60 Calculus of gallbladder and bile duct with cholecystitis, unspecified, without obstruction; Z94.81 Bone marrow transplant status; K92.2 Gastrointestinal hemorrhage, unspecified; K91.840 Postprocedural hemorrhage of a digestive system organ or structure following a digestive system procedure; D62 Acute posthemorrhagic anemia; I25.119 Atherosclerotic heart disease of native coronary artery with unspecified angina pectoris; E11.649 Type 2 diabetes mellitus with hypoglycemia without coma; E78.00 Pure hypercholesterolemia, unspecified; I10 Essential (primary) hypertension; R74.01 Elevation of levels of liver transaminase levels; K76.0 Fatty (change of) liver, not elsewhere classified; K21.9 Gastro-esophageal reflux disease without esophagitis; G89.29 Other chronic pain; M54.2 Cervicalgia; I45.10 Unspecified right bundle-branch block; R13.10 Dysphagia, unspecified; K75.89 Other specified inflammatory liver diseases; Y83.8 Other surgical procedures as the cause of abnormal reaction of the patient, or of later complication, without mention of misadventure at the time of the procedure; Y92.239 Unspecified place in hospital as the place of occurrence of the external cause; Z87.442 Personal history of urinary calculi; I25.2 Old myocardial infarction; Z95.1 Presence of aortocoronary bypass graft; Z87.19 Personal history of other diseases of the digestive system; Z79.82 Long term (current) use of aspirin; Z79.84 Long term (current) use of oral hypoglycemic drugs; Z79.85 Long-term (current) use of injectable non-insulin antidiabetic drugs; Z79.891 Long term (current) use of opiate analgesic; Z63.4 Disappearance and death of family member
CPT/HCPCS: 88304; 71045; 71275; 74174; 74177; 74330; 76000; 76700; 80048; 80053; 82248; 82962; 83690; 84484; 85014; 85018; 85025; 85027; 85610; 85730; 86850; 86900; 86901; 86920; 93005; 96365; 96375; 99285; C1769; C2625; P9016; P9073; Q9967

== ENCOUNTER 2024-06-08 06:48 | Day surgery (SDC) | payer BC, SELFPAY ==
[2024-06-08 09:56] VITALS: BMI 32.8
[2024-06-08 09:58] VITALS: BMI 32.8
[2024-06-08 09:58] LABS: Glucose - Point of Care 88 mg/dl (70-99)
[2024-06-08 09:59] VITALS: BP 135/74
[2024-06-08 11:55] LABS: Glucose - Point of Care 78 mg/dl (70-99)
[2024-06-08 13:02] VITALS: BP 126/85
[2024-06-08 13:15] VITALS: BP 129/87
[2024-06-08 13:30] VITALS: BP 146/87
== END 2024-06-08 13:52 | disposition home or self-care (01) ==
LOC: SDS 06:48
PROVIDERS: ATTENDING PHYSICIAN Internal Medicine Gastroenterology
DX: K31.7 Polyp of stomach and duodenum (principal); K21.9 Gastro-esophageal reflux disease without esophagitis; Z46.59 Encounter for fitting and adjustment of other gastrointestinal appliance and device
CPT/HCPCS: 43247; 43251; 88305; 82962

== ENCOUNTER → 2024-12-13 13:45 | Outpatient (REF) | payer BC, SELFPAY | LOC: HWRCS 13:45 | PROVIDERS: ATTENDING PHYSICIAN Nuclear Medicine Nuclear Cardiology; FAMILY PHYSICIAN Family Medicine | DX: I45.10 Unspecified right bundle-branch block (principal); Z95.1 Presence of aortocoronary bypass graft | CPT/HCPCS: 93306 ==

== ENCOUNTER 2025-03-17 18:42 | Emergency (ER) | payer BC, SELFPAY ==
[2025-03-17 18:44] VITALS: BP 189/118
[2025-03-17] MEDS: IMITREX 25 MG PO (21:27)
[2025-03-17 21:30] VITALS: BP 169/104
--- NOTE | 2025-03-17 22:13 | ED.GENMED ---
History of Present Illness
General
Chief Complaint: Eye Problems
Time Seen by Provider: 03/17/25 20:52
History of Present Illness
History of Present Illness:
Griffin is a 64-year-old male with past medical history of GERD, hypertension, subarachnoid hemorrhage, ASCVD and type 2 diabetes who presents complaining of pressure and pain around his left eye for several days. He was seen by ophthalmology today
in the office and given a prescription for drops but was referred to the ER as they do not see any abnormalities to the eye itself. Reports that he has intermittent headaches associated with this eye pain and pressure. No change in his vision.
Past History
Past History
ED Past Medical History: CAD, Cancer (Chronic myelogenous leukemia, status post bone marrow transplant 1995 ), GERD, HTN, Hypercholesterolemia, NIDDM, Other (Chronic chest wall pain, Headache, Neck pain, Numbness in arms and leg. Herniated disc
neck. Brachial plexopathy, Angina, RBBB, Diverticulitis, Renal calculus, Shingles, ) and Other (Intracranial bleed)
ED Past Surgical History: Cardiac (Cardiac catheterization November 2012, normal coronary arteries, Open heart, ), Orthopedic (Right ankle, Tib/Fb surgery) and Other (Bone marrow transplant 1995 , Hemorrhoidectomy, )
Social History
Tobacco: Non-smoker
Alcohol: None
Drug: None
Personal:
Living: with family
Employment: Employed
Family History
Family History: Negative Early CAD, CAD or Sudden
Phy Exam
General Physical Exam
General Presentation: well appearing and no apparent distress
General Skin: warm and dry
General Habitus: normal
General Mental: alert
General Hydration: appears well hydrated
ENT Exam
ENT Exam: EOMI, pharynx normal, neck supple and normocephalic
Eye Exam
Eye Exam: PERRL, cornea clear and conjunctiva normal
Cardiovascular Exam
Cardiovascular Exam: regular rate/rhythm, no edema, no murmur and normal peripheral pulses
Pulmonary Exam
Pulmonary Exam: lungs clear, no respiratory distress, no rales, no crackles, no rhonchi, no stridor, no wheezing and no cough
Gastrointestinal Exam
Gastrointestinal Exam: normal bowel sounds, non tender, soft, no organomegaly, no pulsatile mass and non distended
Neurological Exam
Neurological Exam: alert, oriented x3, no motor deficits and speech normal
Musculoskeletal Exam
Musculoskeletal Exam: full ROM and no edema
Skin Exam
Skin Exam: normal color, warm/dry, no rash and no petechia
Psychiatric Exam
Psychiatric Exam: normal mood/affect
Course
Orders/Labs/Results
Orders:
Orders
03/17/25 18:47
CT Head W/o Iv Contrast Urgent
Comment:
Reason For Exam: L eye pain, floaters
03/17/25 21:08
Sumatriptan Succinate [Imitrex] 25 mg PO NOW STA
Vital Signs
Initial and Last Documented VS:
Initial Vital Signs
Temp Pulse Resp BP Pulse Ox
36.5 C 94 16 189/118 98
03/17/25 18:44 03/17/25 18:44 03/17/25 18:44 03/17/25 18:44 03/17/25 18:44
Last Documented Vital Signs
Temp Pulse Resp BP Pulse Ox
36.5 C 74 18 169/104 98
03/17/25 18:44 03/17/25 21:30 03/17/25 21:30 03/17/25 21:30 03/17/25 21:30
MDM/Problems Addressed
Differential Diagnosis Includes:
CT head obtained and negative for any acute pathology. Discussed symptoms with patient and they do seem consistent with an ocular migraine. Patient given a dose of Imitrex with improvement in his symptoms. Prescription for Imitrex sent to his
pharmacy. He should follow-up with ophthalmology as directed and with his PCP. Return to the ER for any increase in headaches that are unrelieved with medications, nausea or vomiting or any other concerning symptoms.
*Pulse Oximetry
SaO2: 98
Oxygen Mode of Delivery: Room air
Patient hypoxic: no
*Critical Care Note
Total Time (30-74mins, 75-104mins- exclusive of procedures): Not Applicable
ED Attending Note
-
Portions of this chart may have been created with voice recognition software.� Occasional wrong word or��sound alike� substitutions may have occurred due to the inherent limitations of voice recognition software.
Discharge Plan
Departure
Patient Disposition: Home (Routine Discharge)
Date of Disposition: 03/17/25
Time of Disposition: 21:58
Patient with high blood pressure during this ER visit?: Yes
Discharge Problem:
Ocular migraine, Acute eye pain
Instructions: Migraine in adults
Prescriptions:
New
sumatriptan succinate 25 mg tablet
25 mg PO Q4H PRN (Reason: headache) Qty: 7 0RF
No Action
esomeprazole magnesium [Nexium] 40 MG capsule,delayed release(DR/EC)
40 mg PO DAILY
metformin 500 MG tablet
500 mg PO DAILY
Mounjaro 5 mg/0.5 mL Pen Injector
7.5 mg SC SETHI
atorvastatin 80 mg tablet
80 mg PO DAILY
aspirin 81 mg Tablet,Delayed Release (Dr/Ec)
81 mg PO HS
metoprolol succinate [Toprol XL] 25 mg Tablet Extended Release 24 Hr
25 mg PO QPM
zolpidem [Ambien] 10 mg Tablet
10 mg PO HSPRN PRN (Reason: sleep)
multivit with min-folic acid 80 mcg Tablet,Chewable
2 tab PO DAILY
acetaminophen [acetaminophen] 325 mg tablet
650 mg PO Q4HPRN PRN (Reason: mild pain) Qty: 1 0RF
Referrals:
Rico Lopez MD [Family Provider, Family Practice]
Activity Restrictions/Additional Instructions:
You are seen in the Emergency Department for complaint of eye pain and pressure. Your head CT was reassuring that there is no intracranial abnormality such as subarachnoid hemorrhage or mass. Symptoms may be related to ocular migraine as your
symptoms improved with Imitrex. A prescription for this has been sent to your pharmacy. Please follow-up with your internal wholesaler as directed prescribed. Return to the ER for any worsening headaches, nausea or vomiting or any other concerning
symptom.
Interventions
Interventions:
*General Assessment Last Done: 03/17/25 19:25
*Neglect/Abuse Screening Last Done: 03/17/25 19:25
*ED COVID-19 Vaccine History Last Done: 03/17/25 19:25
*ED Influenza Vaccine History Last Done: 03/17/25 19:25
[facility] Risk Assessment Tool Last Done: 03/17/25 18:42
*Risk Screen - Suicide (C-SSRS) Last Done: 03/17/25 19:25
*Nursing Disposition Last Done: 03/17/25 22:05
Discharge Date and Time
Discharge Date/Time: 03/17/25 22:05
Print Language: KOREAN
== END 2025-03-17 22:05 | disposition home or self-care (01) ==
LOC: EMR 18:42
PROVIDERS: EMERGENCY PHYSICIAN Emergency Medicine; FAMILY PHYSICIAN Family Medicine
DX: G43.109 Migraine with aura, not intractable, without status migrainosus (principal); E11.9 Type 2 diabetes mellitus without complications; I25.119 Atherosclerotic heart disease of native coronary artery with unspecified angina pectoris; I10 Essential (primary) hypertension; E78.00 Pure hypercholesterolemia, unspecified; C92.11 Chronic myeloid leukemia, BCR/ABL-positive, in remission; K21.9 Gastro-esophageal reflux disease without esophagitis; M50.20 Other cervical disc displacement, unspecified cervical region; Z79.84 Long term (current) use of oral hypoglycemic drugs; Z79.85 Long-term (current) use of injectable non-insulin antidiabetic drugs; Z79.82 Long term (current) use of aspirin; Z94.81 Bone marrow transplant status
CPT/HCPCS: 99284; 70450